=== PATIENT | male | born 1960 | race Caucasian/White ===

== ENCOUNTER 2017-05-18 12:18 | Day surgery (SDC) | payer MEDICARE, SELFPAY ==
[2017-05-18] VITALS (15 sets, daily range): BP systolic 107–134; BP diastolic 56–80; PULSE 69–93; RESP 16–20; TEMP 36.4; O2SAT 91–98; BMI 36.7
--- NOTE | 2017-05-18 12:28 | IR_ITS ---
CARDIAC CATHETERIZATION DATE OF CATHETERIZATION:05/18/2017 1:26 PM PROCEDURES: 1. Left heart catheterization 2. Left ventriculogram 3. Selective coronary angiogram INDICATION FOR TEST: 1. Left bundle-branch block 2. Angina pectoris class IV 3. Numerous risk factors for coronary artery disease 4. High pretest likelihood for coronary disease Informed consent was obtained prior to the procedure. COMPLICATIONS: None ESTIMATED BLOOD LOSS: Less than 10 ml. TECHNIQUE: One percent lidocaine used to anesthetize the right anterior aspect of the wrist. The right radial artery was accessed via the Seldinger technique. A 6 Tongan sheath was placed in the right radial artery. 2.5 mg of verapamil, 800 mcg of nitroglycerin and 5000 U Heparin were given through the arterial sheath. The trap catheter was also used to perform left heart catheterization and left ventriculography. At the end of the procedure the patient was transferred to the post-op holding area in stable condition for arterial sheath removal. ANGIOGRAPHIC RESULTS: 1. The left main artery normal 2. The left anterior descending artery is proximally normal and then has a mid vessel eccentric 30% stenosis immediately after the first diagonal artery and second septal care transitions manager. The remaining vessel is normal 3. The circumflex artery is nondominant and normal 4. The right coronary artery is dominant and has mild proximal and mid vessel 5% stenoses 5. The LINDO ventriculogram reveals preserved at 50% 6. The left ventricular end-diastolic pressure moderate to severely elevated at 35 to 40 mmHg IMPRESSION: 1. Mild nonflow limiting coronary artery disease 2. Mildly reduced to preserved left ventricular function at 50% 3. Severely elevated LVEDP consistent with cardiomyopathy and diastolic dysfunction PLAN: 1. Patient requires diuresis with Lasix and spironolactone. 2. He appears to have a cardiomyopathy most likely related to diastolic dysfunction. I would still treat patient with lenora inhibitors and carvedilol 3. LDL less than 55 4. Avoidance of tobacco products
[2017-05-18 13:01] LABS: Basophils # 0.1 K/mm3 (0-0.2); Basophils % 0.9 % (0.1-2.0); Eosinophils # 0.3 K/mm3 (0.0-0.4); Eosinophils % 4.1 % (0.1-12.0); Hematocrit 50.9 % (42.0-52.0); Lymphocytes # 2.4 K/mm3 (0.7-4.5); Lymphocytes % 34.3 K/mm3 (10-50); Mean Corpuscular HGB Conc 33.3 g/dL (31.8-35.4); Mean Corpuscular Hemoglobin 28.3 pg (27.0-31.2); Mean Corpuscular Volume 84.8 fl (80-94); Mean Platelet Volume 8.2 fl (7.4-10.4); Monocytes # 0.4 K/mm3 (0.1-1.0); Monocytes % 5.6 % (1.7-9.3); Neutrophils # 3.8 K/mm3 (1.8-7.8); Neutrophils % 55.1 % (37.0-80.0); Platelet Count 184 K/mm3 (142-424); Red Blood Count 6.01 M/mm3 (4.60-6.20); Red Cell Distribution Width 13.2 % (11.5-17.5); White Blood Count 6.9 K/mm3 (4.8-10.8)
[2017-05-18 13:02] LABS: Anion Gap 8.8 mEq/L (5-15); Blood Urea Nitrogen 5 mg/dL (7-18); Carbon Dioxide 33 mmol/L (21.0-32.0); Chloride 101 mmol/L (98-107); Creatinine Clearance Estimated 163 mL/min (0-300); Creatinine,Serum 0.89 mg/dL (0.70-1.30); Estimated Glomerular Filt Rate 88 ml/min (>60); GFR (African American) 107 ML/MIN (>60); Glucose 99 mg/dL (74-106); Potassium 3.8 mmoL/L (3.5-5.1); Sodium 139 mmol/L (136-145)
--- NOTE | 2017-05-20 10:36 | PC.NURSE ---
post procedure call made, pt states he is doing well, denies any questions/concerns at this time
== END 2017-05-18 17:12 | disposition home or self-care (01) ==
LOC: CATHLAB 12:20
PROVIDERS: Family Provider Family Medicine; PCP Family Medicine; Visit Provider Internal Medicine
DX: I44.7 Left bundle-branch block, unspecified (principal); I25.119 Atherosclerotic heart disease of native coronary artery with unspecified angina pectoris; I42.9 Cardiomyopathy, unspecified
CPT/HCPCS: 80048; 85025; 93458; 99152; C1725; C1760; C1769; J1644; Q9967

== ENCOUNTER → 2017-06-01 09:46 | Outpatient (CLI) | payer MEDICARE, SELFPAY ==
[2017-06-01 10:04] LABS: Anion Gap 10.4 mEq/L (5-15); Blood Urea Nitrogen 9 mg/dL (7-18); Carbon Dioxide 31 mmol/L (21.0-32.0); Chloride 105 mmol/L (98-107); Creatinine,Serum 0.96 mg/dL (0.70-1.30); Estimated Glomerular Filt Rate 81 ml/min (>60); GFR (African American) 98 ML/MIN (>60); Glucose 121 mg/dL (74-106); Potassium 4.4 mmoL/L (3.5-5.1); Sodium 142 mmol/L (136-145)
== END ==
PROVIDERS: PCP Family Medicine; Visit Provider Internal Medicine
DX: I25.10 Atherosclerotic heart disease of native coronary artery without angina pectoris (principal); I11.9 Hypertensive heart disease without heart failure; E78.5 Hyperlipidemia, unspecified; R00.0 Tachycardia, unspecified; I44.7 Left bundle-branch block, unspecified
CPT/HCPCS: 36415; 80048

== ENCOUNTER 2017-06-28 09:59 | Observation (INO) | payer MEDICARE, SELFPAY ==
[2017-06-28] VITALS (9 sets, daily range): BP systolic 111–128; BP diastolic 66–90; PULSE 78–110; RESP 16–22; TEMP 36.6–37.3; O2SAT 92–97; BMI 36.0; BMI 34.7
[2017-06-28 11:26] LABS: UTC Influenza A Antigen Negative (Negative); UTC Influenza B Antigen Negative (Negative); UTC Strep Screen (Rapid) Negative (Negative)
--- NOTE | 2017-06-28 11:36 | HMH.EDUTC ---
[facility] Disposition Clinical Impression: Shortness of breath, Weakness Chest pain Qualifiers: Chest pain type: unspecified Qualified Code(s): R07.9 - Chest pain, unspecified Disposition: Still a Patient Condition on Discharge: Fair Time of Disposition: 11:50 (transfer to ER bed 8) Medical Decision Making Vital Signs: 06/28/17 11:15 Temperature 97.9 F Temperature Source Temporal Artery Scan Pulse Rate [Right Radial] 105 H Respiratory Rate 22 Blood Pressure [Right Arm] 120/88 Blood Pressure Mean [Right Arm] 98 02 Sat by Pulse Oximetry 94 L Oxygen Delivery Method Nasal Cannula - Lab Data Lab results reviewed: Yes: I reviewed the patient's lab results. Lab Results 06/28/17 10:07: Influenza Type A Ag Negative, Influenza Type B Ag Negative, Strep Scn Rapid Clinic Negative Orders (Tests/Meds): ORDERS Category Date Time Status Strep Screen Confirmation Stat Micro 06/28/17 10:07 Received - Physician Consults Physician Consulted: Dr. Knox, ER Time: 11:50 Reason -: Pt condition Comment/Response: Discussed PMHx, HPI, current symptoms, exam, VS, neg flu/strep. Agrees w/ transfer to ER for full evaluation. Room 8 available. pt and agreeable to transfer. - Rodríguez Inquiry Pt receiving controlled substance: No [facility] HPI - General Stated complaint: Poss Flu Time Seen by Provider: 06/28/17 11:36 Mode of Arrival: Family Vehicle Source of Information: Patient Limitations: No Limitations Description of Symptoms (Recalled from Triage Doc. by RN): pt c/o flu like symptoms that started on . HEENT Symptoms (Recalled from RN notes): Yes (flu like) Resp Symptoms (Recalled from RN notes): Yes (flu like) Skin Symptoms (Recalled from RN notes): No MS Symptoms (Recalled from RN notes): No Functional Status (Recalled from RN notes): na - History of Present Illness Provider Complaint: c/o muscle cramps, fatigue, weakness. Started w/ flu like symptoms Wednesday, 6 days ago. Feeling feverish, aches, chills, nonprod cough. Currently in the middle of changing from Dr. Ly in [place] to Rachel Hansen APRN. Appt on . Has not been seen for symptoms. Taking cold and flu medication otc but not helping. Weakness, muscle cramping, fatigue, SOA all new over the last couple days. - Related Data Home Medications Medication Instructions Recorded Confirmed aspirin 81 mg tablet,delayed 81 mg PO ONCE 05/18/17 05/18/17 release bupropion HCl SR 150 mg 150 mg PO BID 05/18/17 05/18/17 tablet,sustained-release diphenhydramine 25 mg capsule 25 mg PO ONCE cap 05/18/17 05/18/17 melatonin 5 mg tablet 5 mg PO HS PRN 05/18/17 05/18/17 montelukast 10 mg tablet 10 mg PO QPM 05/18/17 05/18/17 naproxen 500 mg tablet 500 mg PO QD-BID PRN 05/18/17 05/18/17 tolterodine ER 4 mg 4 mg PO ONCE 05/18/17 05/18/17 capsule,extended release 24 hr trazodone 150 mg tablet 150 mg PO QHS tab 05/18/17 05/18/17 Previous Rx's Medication Instructions Recorded amlodipine 5 mg tablet 5 mg PO DAILY #90 tab 06/22/17 bisoprolol fumarate 5 mg tablet 5 mg PO QDAY #30 tab 06/22/17 furosemide 80 mg tablet 80 mg PO QDAY #30 tab 06/22/17 lovastatin 20 mg tablet 20 mg PO DAILY #90 tab 06/22/17 ranolazine ER 500 mg 500 mg PO BID #60 tab 06/22/17 tablet,extended release,12 hr spironolactone 100 mg tablet 100 mg PO QDAY #30 tab 06/22/17 Allergies Allergy/AdvReac Type Severity Reaction Status Date / Time No Known Allergies Allergy Verified 06/28/17 10:17 - Worker's Comp Is this a Worker's Comp case?: No [facility] History I have reviewed the patient's past medical history: Yes Medical History: Reports:: Congestive Heart Failure (pt describes as too much water ), Coronary Artery Disease, Hyperlipidemia, Hypertension Denies:: Chronic Obstructive Pulmonary Disease (COPD), Myocardial Infarction Laterality Cases: Right: Arthroscopy Knee - Social History Smoking Status: Never smoker Tobacco Type: cigarettes
--- NOTE | 2017-06-28 11:50 | ED_ITS ---
[facility] [place] Disposition Clinical Impression: Shortness of breath, Weakness Chest pain Qualifiers: Chest pain type: unspecified Qualified Code(s): R07.9 - Chest pain, unspecified Disposition: Still a Patient Condition on Discharge: Fair Time of Disposition: 11:50 (transfer to ER bed 8) Medical Decision Making Vital Signs: 06/28/17 11:15 Temperature 97.9 F Temperature Source Temporal Artery Scan Pulse Rate [Right Radial] 105 H Respiratory Rate 22 Blood Pressure [Right Arm] 120/88 Blood Pressure Mean [Right Arm] 98 02 Sat by Pulse Oximetry 94 L Oxygen Delivery Method Nasal Cannula - Lab Data Lab results reviewed: Yes: I reviewed the patient's lab results. Lab Results 06/28/17 10:07: Influenza Type A Ag Negative, Influenza Type B Ag Negative, Strep Scn Rapid Clinic Negative Orders (Tests/Meds): ORDERS Category Date Time Status Strep Screen Confirmation Stat Micro 06/28/17 10:07 Received - Physician Consults Physician Consulted: Dr. Knox, ER Time: 11:50 Reason -: Pt condition Comment/Response: Discussed PMHx, HPI, current symptoms, exam, VS, neg flu/ strep. Agrees w/ transfer to ER for full evaluation. Room 8 available. pt and agreeable to transfer. - Rodríguez Inquiry Pt receiving controlled substance: No [facility] HPI - General Stated complaint: Poss Flu Time Seen by Provider: 06/28/17 11:36 Mode of Arrival: Family Vehicle Source of Information: Patient Limitations: No Limitations Description of Symptoms (Recalled from Triage Doc. by RN): pt c/o flu like symptoms that started on . HEENT Symptoms (Recalled from RN notes): Yes (flu like) Resp Symptoms (Recalled from RN notes): Yes (flu like) Skin Symptoms (Recalled from RN notes): No MS Symptoms (Recalled from RN notes): No Functional Status (Recalled from RN notes): na - History of Present Illness Provider Complaint: c/o muscle cramps, fatigue, weakness. Started w/ flu like symptoms Wednesday, 6 days ago. Feeling feverish, aches, chills, nonprod cough. Currently in the middle of changing from Dr. Ly in [place] to Rachel Hansen APRN. Appt on . Has not been seen for symptoms. Taking cold and flu medication otc but not helping. Weakness, muscle cramping, fatigue, SOA all new over the last couple days. - Related Data Home Medications Medication Instructions Recorded Confirmed aspirin 81 mg tablet,delayed 81 mg PO ONCE 05/18/17 05/18/17 release bupropion HCl SR 150 mg 150 mg PO BID 05/18/17 05/18/17 tablet,sustained-release diphenhydramine 25 mg capsule 25 mg PO ONCE cap 05/18/17 05/18/17 melatonin 5 mg tablet 5 mg PO HS PRN 05/18/17 05/18/17 montelukast 10 mg tablet 10 mg PO QPM 05/18/17 05/18/17 naproxen 500 mg tablet 500 mg PO QD-BID PRN 05/18/17 05/18/17 tolterodine ER 4 mg 4 mg PO ONCE 05/18/17 05/18/17 capsule,extended release 24 hr trazodone 150 mg tablet 150 mg PO QHS tab 05/18/17 05/18/17 Previous Rx's Medication Instructions Recorded amlodipine 5 mg tablet 5 mg PO DAILY #90 tab 06/22/17 bisoprolol fumarate 5 mg tablet 5 mg PO QDAY #30 tab 06/22/17 furosemide 80 mg tablet 80 mg PO QDAY #30 tab 06/22/17 lovastatin 20 mg tablet 20 mg PO DAILY #90 tab 06/22/17 ranolazine ER 500 mg 500 mg PO BID #60 tab 06/22/17 tablet,extende
--- NOTE | 2017-06-28 11:56 | XR_ITS ---
XR chest 2V HISTORY: ITS.REASON: dyspnea ORDERING PHYSICIAN: Rachel Reynoso PATIENT AGE: 56 years COMPARISON: 11/20/2015 FINDINGS: The cardiomediastinal silhouette and pulmonary vascularity are within normal limits. There are minimal atelectatic changes in the lingula. No lobar consolidation. No effusions. No acute bony anomalies. IMPRESSION: Mild atelectasis within the lingula
[2017-06-28 12:53] LABS: Basophils % 0.7 % (0.1-2.0); Eosinophils # 0.2 K/mm3 (0.0-0.4); Eosinophils % 3.7 % (0.1-12.0); Hematocrit 47.5 % (42.0-52.0); Hemoglobin 16.1 g/dL (14.1-18.0); Lymphocytes # 1.5 K/mm3 (0.7-4.5); Lymphocytes % 37.8 K/mm3 (10-50); Mean Corpuscular HGB Conc 33.9 g/dL (31.8-35.4); Mean Corpuscular Volume 82.8 fl (80-94); Mean Platelet Volume 8.1 fl (7.4-10.4); Monocytes # 0.4 K/mm3 (0.1-1.0); Monocytes % 8.9 % (1.7-9.3); Platelet Count 131 K/mm3 (142-424); Red Blood Count 5.73 M/mm3 (4.60-6.20); Red Cell Distribution Width 12.8 % (11.5-17.5); White Blood Count 4.1 K/mm3 (4.8-10.8)
[2017-06-28 13:05] LABS: Activated Partial Thrombo Time 30.1 seconds (23.6-34.0); INR 1.03 (0.9-1.1); Prothrombin Time 11.1 seconds (9.4-11.8)
[2017-06-28 13:13] LABS: D-Dimer < 100 (0-400)
[2017-06-28 13:47] LABS: Troponin I < 0.02 ng/ml (0.00-0.06)
[2017-06-28 13:53] LABS: Alanine Aminotransferase 68 U/L (12-78); Albumin Level 4.1 gm/dL (3.4-5.0); Albumin/Globulin Ratio 1.5 (1.1-1.8); Anion Gap 12.9 mEq/L (5-15); Aspartate Amino Transferase 46 U/L (15-37); Bilirubin,Total 0.9 mg/dL (0.2-1.0); Blood Urea Nitrogen 9 mg/dL (7-18); Calcium 8.7 mg/dL (8.5-10.1); Carbon Dioxide 32 mmol/L (21.0-32.0); Chloride 100 mmol/L (98-107); Creatine Kinase MB < 0.5 mg/ml (0.0-3.6); Creatinine Clearance Estimated 122 mL/min (0-300); Creatinine,Serum 1.17 mg/dL (0.70-1.30); Estimated Glomerular Filt Rate 64 ml/min (>60); GFR (African American) 78 ML/MIN (>60); Globulin 2.7 gm/dl (1.3-3.2); Glucose 118 mg/dL (74-106); Potassium 3.9 mmoL/L (3.5-5.1); Sodium 141 mmol/L (136-145); Total Protein,Serum 6.8 gm/dL (6.4-8.2)
[2017-06-28 13:54] LABS: Alkaline Phosphatase 75 U/L (46-116)
--- NOTE | 2017-06-28 16:45 | PC.NURSE ---
CALLED HOUSE FOR A BED FOR PT
--- NOTE | 2017-06-28 16:55 | PC.NURSE ---
Dr. Vilchis called stating he had spoken with Dr. Singh who stated to admit pt to his service. Pt states he has an appt scheduled as a new pt with ARINA Menchaca.
--- NOTE | 2017-06-28 17:05 | HMH.EDSOB ---
ED Disposition Clinical Impression: Shortness of breath, Weakness Chest pain Qualifiers: Chest pain type: unspecified Qualified Code(s): R07.9 - Chest pain, unspecified Reactive airway disease Qualifiers: Asthma severity: mild Asthma persistence: persistent Asthma complication type: with acute exacerbation Qualified Code(s): J45.31 - Mild persistent asthma with (acute) exacerbation Disposition: Still a Patient Condition on Discharge: Good Time of Disposition: 16:35 - Critical Care Critical Care Time: No Attestation: On 06/28/17, the high probability of a clinically significant, sudden or life threatening deterioration of the following system(s) required my full and direct attention, intervention and personal management. The time I documented below is in addition to time spent performing reported procedures but includes the following listed in this critical care notation. Medical Decision Making - Medical Records Medical records reviewed: Yes: I reviewed the patient's medical records. Vital Signs: 06/28/17 11:15 06/28/17 11:52 06/28/17 13:11 Temperature 97.9 F 98.0 F 98.0 F Temperature Source Temporal Artery Scan Oral Oral Pulse Rate Pulse Rate [Right Radial] 105 H 78 92 H Respiratory Rate 22 22 16 Blood Pressure Blood Pressure [Right Arm] 120/88 128/90 118/66 Blood Pressure Mean [Right Arm] 98 102 83 Blood Pressure Source [Right Arm] Automatic Cuff Automatic Cuff Blood Pressure Position [Right Arm] Sitting Sitting 02 Sat by Pulse Oximetry 94 L 97 95 Oxygen Delivery Method Nasal Cannula Room Air Room Air 06/28/17 15:30 06/28/17 18:09 Temperature 98.0 F 98.0 F Temperature Source Oral Pulse Rate 88 Pulse Rate [Right Radial] 88 Respiratory Rate 22 22 Blood Pressure 127/67 Blood Pressure [Right Arm] 127/67 Blood Pressure Mean [Right Arm] 87 Blood Pressure Source [Right Arm] Automatic Cuff Blood Pressure Position [Right Arm] Sitting 02 Sat by Pulse Oximetry 92 L Oxygen Delivery Method Room Air Room Air - Lab Data Lab results reviewed: Yes: I reviewed the patient's lab results. Lab Results 06/28/17 10:07: Influenza Type A Ag Negative, Influenza Type B Ag Negative, Strep Scn Rapid Clinic Negative 06/28/17 12:35: WBC 4.1 L, RBC 5.73, Hgb 16.1, Hct 47.5, MCV 82.8, MCH 28.0, MCHC 33.9, RDW 12.8, Plt Count 131 L, MPV 8.1, Neut % (Auto) 49.0, Lymph % (Auto) 37.8, [place] % (Auto) 8.9, Eos % (Auto) 3.7, Baso % (Auto) 0.7, Neut # (Auto) 2.0, Lymph # (Auto) 1.5, [place] # (Auto) 0.4, Eos # (Auto) 0.2, Baso # (Auto) 0.0 06/28/17 12:35: PT 11.1, INR 1.03, APTT 30.1, D-Dimer < 100 06/28/17 12:35: Sodium 141, Potassium 3.9, Chloride 100, Carbon Dioxide 32, Anion Gap 12.9, BUN 9, Creatinine 1.17, Estimated Creat Clear 122, Estimated GFR 64, Est GFR ( Amer) 78, Glucose 118 H, Calcium 8.7, Total Bilirubin 0.9, AST 46 H, ALT 68, Alkaline Phosphatase 75, CK-MB (CK-2) < 0.5, Troponin I < 0.02, Total Protein 6.8, Albumin 4.1, Globulin 2.7, Albumin/Globulin Ratio 1.5 06/28/17 12:35: B-Natriuretic Peptide 18 06/28/17 18:10: Total Creatine Kinase 117, CK-MB (CK-2) < 0.5, CK-MB (CK-2) Rel Index 0.4, Troponin I < 0.02 Result diagrams: 06/28/17 12:35 06/28/17 12:35 Orders (Tests/Meds): ED MEDICATIONS Discontinued Medications Generic Name Dose Route Start Last Admin Trade Name Freq PRN Reason Stop Dose Admin Albuterol/Ipratropium 3 ml 06/28/17 17:34 Duoneb 3ml Neb IH 07/28/17 17:33 Q6HP PRN Shortness Of Breath Aspirin 324 mg 06/28/17 11:56 06/28/17 12:13 Aspirin 81mg Chewable Tablet PO 06/28/17 11:57 324 mg ONCE ONE Administration Ceftriaxone Sodium 1 gm/ 50 mls @ 100 mls/hr 06/28/17 13:30 06/28/17 13:27 Sodium Chloride IV 07/12/17 13:29 100 mls/hr Q24H ERROL Administration Ceftriaxone Sodium 1 gm/ 50 mls @ 100 mls/hr 06/29/17 13:00 06/29/17 13:10 Sodium Chloride IV 07/12/17 12:59 Not Given Q24H ERROL Levalbuterol HCl 1.25 mg 06/29/17 1
--- NOTE | 2017-06-28 17:07 | PC.NURSE ---
[address] MARTÍNEZ OFFICE. BEEN WAITING RETURN CALL FROM OFFICE. 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
--- NOTE | 2017-06-28 17:37 | PC.NURSE ---
REPORT CALLED TO LAURA GEORGES RN
[2017-06-28 18:41] LABS: Creatine Kinase 117 U/L (39-308); Troponin I < 0.02 ng/ml (0.00-0.06)
[2017-06-28 18:45] LABS: CKMB Relative Index 0.4 U/L (0-4.0); Creatine Kinase MB < 0.5 mg/ml (0.0-3.6)
--- NOTE | 2017-06-28 19:02 | PC.NURSE ---
Report given to Allegra Maharaj RN
[2017-06-29] VITALS (8 sets, daily range): BP systolic 116–157; BP diastolic 73–91; PULSE 79–140; RESP 18–22; TEMP 36.6–37.1; O2SAT 90–95
[2017-06-29 00:05] LABS: Creatine Kinase 123 U/L (39-308); Troponin I < 0.02 ng/ml (0.00-0.06)
[2017-06-29 00:10] LABS: CKMB Relative Index 0.4 U/L (0-4.0); Creatine Kinase MB < 0.5 mg/ml (0.0-3.6)
--- NOTE | 2017-06-29 05:30 | PC.NURSE ---
NO COMPLAINTS STATED. NSR/SINUS TACH NOTED PER HOG FEEDER. RN NOTIFIED OF HR IN 140'S, RN RESPONDED TO NOTIFICATION AND ASSESSED PT, PT WAS IN ROOM WALKING IN ROOM, PT STATED I JUST WENT TO THE BATHROOM AND I HAVE BEEN TRYING TO COUGH UP THIS PHLEGM. DENIED PAIN/SOA. ONCE RESTING, HR NOTED 80'S-90'S, NSR. TOLERATED RA WELL. VSS. WILL CONTINUE TO MONITOR.
--- NOTE | 2017-06-29 06:09 | PC.NURSE ---
ANMOL Zuniga, notified, of Dr Beard consult
--- NOTE | 2017-06-29 06:17 | PC.NURSE ---
PT REPORTS PRODUCTIVE COUGH, STATES ONE TIME I COUGHED IT UP, IT WAS YELLOW AND THICK THE OTHER TIME I COUGHED SOME STUFF UP IT WAS YELLOW AND THIN.
--- NOTE | 2017-06-29 07:35 | PC.NURSE ---
REPORT GIVEN TO Marv RAND W/C
--- NOTE | 2017-06-29 07:58 | P.CONPHA_ITS ---
[facility] Pharmacy VTE Monitoring - Patient Demographics Admission date: 06/28/17 Report Date: 06/29/17 Time: 07:57 Allergies/Adverse Reactions: Patient Allergies No Known Allergies Allergy (Verified 06/28/17 10:17) Height: 1.85 m Weight: 119.493 kg Patient Problems: Current Active Problems Chest pain (Acute) Shortness of breath (Acute) Weakness (Acute) Reactive airway disease (Acute) - VTE Risk Labs: VTE Related Lab Results Hgb 16.1 g/dL (14.1-18.0) 06/28/17 12:35 Hct 47.5 % (42.0-52.0) 06/28/17 12:35 Plt Count 131 K/mm3 (142-424) L 06/28/17 12:35 PT 11.1 seconds (9.4-11.8) 06/28/17 12:35 INR 1.03 (0.9-1.1) 06/28/17 12:35 APTT 30.1 seconds (23.6-34.0) 06/28/17 12:35 BUN 9 mg/dL (7-18) 06/28/17 12:35 Creatinine 1.17 mg/dL (0.70-1.30) 06/28/17 12:35 Estimated Creat Clear 122 mL/min (0-300) 06/28/17 12:35 Was VTE Risk Assessment Performed: Yes VTE Score: 2 VTE Risk Level: Very Low Risk Clinical Trial Participant: No - Prophylaxis Types of VTE Prophylaxis: TEDS Knee High
--- NOTE | 2017-06-29 08:46 | HMH.CNCARD ---
History of Present Illness Consult date: 06/29/17 Requesting physician: Nando Singh Consult reason: chest pain Chief complaint: chest pain Additional Medical History:: 1. Mild coronary artery disease by cardiac catheterization 05/2017 with preserved ejection fraction. A. Endothelial dysfunction with diastolic heart disease. 2. Hypertension 3. Hyperlipidemia 4. Left bundle branch block, rate related History of present illness: 56-year-old white male admitted for chest pain and patient relates recurrent episodes of left-sided chest discomfort that occur at rest. Brief in duration and seemed to be associated with coughing or movement. Patient has a recent cardiac catheterization showing only mild coronary artery disease. There has been some treatment for endothelial dysfunction with Ranexa with some improvement in symptoms but not complete resolution. Enzymes have returned normal overnight. Telemetry shows intermittent left bundle branch block which seems to be rate related. Radiology consulted for evaluation recommendations. [facility] History Medical History: Reports:: Congestive Heart Failure (pt describes as too much water ), Coronary Artery Disease, Hyperlipidemia, Hypertension Denies:: Chronic Obstructive Pulmonary Disease (COPD), Diabetes Mellitus Type 1, Diabetes Mellitus Type 2, Myocardial Infarction Laterality Cases: Right: Arthroscopy Knee Other Surgeries: Yes: Other Amputation: No - *Social History Educational Level: Completed High School Smoking Status: Never smoker Tobacco Type: cigarettes Alcohol Intake: never Alcohol Intake Frequency:: other Occupational Status: disabled Housing: house Household Members: spouse - Psychiatric History Expresses thoughts of harming self/others: None Suicide Plan Description: No Plan *Family Hx:: Unable to obtain, Coronary Artery Disease, Heart Attack Meds Home Medications Medication Instructions Recorded Confirmed Type aspirin 81 mg tablet,delayed 81 mg PO ONCE 05/18/17 06/28/17 History release bupropion HCl SR 150 mg 150 mg PO BID 05/18/17 06/28/17 History tablet,sustained-release diphenhydramine 25 mg capsule 25 mg PO ONCE cap 05/18/17 06/28/17 History melatonin 5 mg tablet 5 mg PO HS PRN 05/18/17 06/28/17 History montelukast 10 mg tablet 10 mg PO QPM 05/18/17 06/28/17 History naproxen 500 mg tablet 500 mg PO QD-BID PRN 05/18/17 06/28/17 History tolterodine ER 4 mg 4 mg PO ONCE 05/18/17 06/28/17 History capsule,extended release 24 hr trazodone 150 mg tablet 150 mg PO QHS tab 05/18/17 06/28/17 History Bisoprolol Fumarate [Zebeta 5mg 5 mg PO QDAY 06/28/17 06/28/17 History tablet] Furosemide [Furosemide 80mg Tab] 80 mg PO QDAY 06/28/17 06/28/17 History Ranolazine [Ranexa 500mg ER tablet] 500 mg PO BID 06/28/17 06/28/17 History Spironolactone [Aldactone 100mg 100 mg PO QDAY 06/28/17 06/28/17 History Tab] Allergies Allergy/AdvReac Type Severity Reaction Status Date / Time No Known Allergies Allergy Verified 06/28/17 10:17 Review of Systems - *Cardiovascular Reports chest pain - *Respiratory Reports shortness of breath with activity - *Gastrointestinal Denies abdominal pain - *Musculoskeletal Denies joint pain - *Neurologic Reports weakness, Denies dizziness, Denies headache(s) Exam Vital signs and Labs for Last 24 Hours: Temp Pulse Resp BP Pulse Ox 97.9 F 79 18 130/76 90 L 06/29/17 08:00 06/29/17 08:00 06/29/17 08:00 06/29/17 08:00 06/29/17 08:00 Laboratory Results - last 24 hr 06/28/17 23:35: Total Creatine Kinase 123, CK-MB (CK-2) < 0.5, CK-MB (CK-2) Rel Index 0.4, Troponin I < 0.02 I & O for Last 24 hours: Intake & Output 06/26/17 06/27/17 06/28/17 06/29/17 11:59 11:59 11:59 11:59 Intake Total 0 / 0 Balance 0 / 0 Weight 263 lb 7 oz - *Routine Respiratory Exam Present: wheezes - *Routine Cardiovascular Exam Present: RRR. Absent: murmur, gallop - *Routine Extr
[2017-06-29 09:22] LABS: Adenovirus,PCR Not Detected (NotDetected); Bordetella Pertussis Not Detected (NotDetected); Chlamydophila Pneumoniae, PCR Not Detected (NotDetected); Coronavirus 229E Not Detected (NotDetected); Coronavirus NL63 Not Detected (NotDetected); Coronavirus OC43 Not Detected (NotDetected); Coronovirus HKU1,PCR Not Detected (NotDetected); Human Metapneumovirus Not Detected (NotDetected); Influenza A, PCR Not Detected (NotDetected); Influenza AH1, 2009 Not Detected (NotDetected); Influenza AH1, PCR Not Detected (NotDetected); Influenza AH3,PCR Not Detected (NotDetected); Influenza B, PCR Not Detected (NotDetected); Mycoplasma Pneumoniae, PCR Not Detected (NotDected); Parainfluenza 1, PCR Not Detected (NotDetected); Parainfluenza 2, PCR Not Detected (NotDetected); Parainfluenza 3, PCR Not Detected (NotDetected); Parainfluenza 4, PCR Not Detected (NotDetected); Respiratory Syncytial Virus Not Detected (NotDetected); Rhinovirus/Enterovirus Not Detected (NotDetected)
--- NOTE | 2017-06-29 13:13 | HMH.HPDC ---
General - General Admission date: 06/28/17 Discharge date: 06/29/17 *Admission Date: 06/28/17 *Chief complaint: chest pain, shortness of breath *History of present illness: 56 year old male presented to the ED with flu-like symptoms x 6 days. Reports anterior chest discomfort and shortness of breath. States chest pain occurred at rest and worsened with deep breathing. States he has felt feverish over the last few days. He has recently been seen by pulmonology for his COPD and Cardiology for chest pain. He had a LHC this year that showed endothelial dysfunction; however no significant CAD. There was concern for a new LBBB block in the ED so patient was admitted for observation and further evaluation. [facility] History I have reviewed the patient's past medical history: Yes Medical History: Reports:: Congestive Heart Failure (pt describes as too much water ), Coronary Artery Disease, Hyperlipidemia, Hypertension Denies:: Chronic Obstructive Pulmonary Disease (COPD), Diabetes Mellitus Type 1, Diabetes Mellitus Type 2, Myocardial Infarction Laterality Cases: Right: Arthroscopy Knee Other Surgeries: Yes: Other Amputation: No - *Social History Educational Level: Completed High School Smoking Status: Never smoker Tobacco Type: cigarettes Alcohol Intake: never Alcohol Intake Frequency:: other Occupational Status: disabled Housing: house Household Members: spouse - Psychiatric History Expresses thoughts of harming self/others: None Suicide Plan Description: No Plan *Family Hx:: Unable to obtain, Coronary Artery Disease, Heart Attack Review of Systems - Review of Systems Review of systems:: pertinent systems reviewed and negative unless documented below - Constitutional Reports body ache(s), Reports chills, Reports fever(s) - ENT Reports nasal congestion, Reports nasal discharge, Reports sinus pressure, Reports sore throat - *Cardiovascular Reports chest pain - *Respiratory Reports chest congestion, Reports cough, Reports shortness of breath - *Neurologic Reports weakness, Denies dizziness, Denies headache(s) Exam Vital signs and Labs for Last 24 Hours: Temp Pulse Resp BP Pulse Ox 97.9 F 79 18 130/76 90 L 06/29/17 08:00 06/29/17 09:37 06/29/17 09:37 06/29/17 08:00 06/29/17 09:37 Laboratory Results - last 24 hr 06/28/17 23:35: Total Creatine Kinase 123, CK-MB (CK-2) < 0.5, CK-MB (CK-2) Rel Index 0.4, Troponin I < 0.02 06/29/17 09:05: Chlamy pneumoniae PCR Not detected, Adenovirus (PCR) Not detected, B.parapertussis DNA PCR Not detected, Coronavirus OC43 (PCR) Not detected, Coronavirus HKU1 (PCR) Not detected, Coronavirus 229E (PCR) Not detected, Coronavirus NL63 (PCR) Not detected, Human Metapneumovir PCR Not detected, Influenza A (H1) PCR Not detected, Influ A (H1N1/09) PCR Not detected, Influenza A (H3) PCR Not detected, Influenza Type A (PCR) Not detected, Influenza Type B (PCR) Not detected, M. pneumoniae (PCR) Not detected, Parainfluenza 1 (PCR) Not detected, Parainfluenza 2 (PCR) Not detected, Parainfluenza 3 (PCR) Not detected, Parainfluenza 4 (PCR) Not detected, RSV (PCR) Not detected, Entero/Rhino (PCR) Not detected I & O for Last 24 hours: Intake & Output 06/27/17 06/28/17 06/29/17 06/30/17 11:59 11:59 11:59 11:59 Intake Total 0 / 0 Balance 0 / 0 Weight 263 lb 7 oz Narrative: ALert and oriented x3. Rate and rhythm regular. Pulses 2+ bilaterally. No LE edema. Skin pink, warm and dry. LS with scattered wheezes throughout. Abdomen soft and nontender. No JVD. No LAD. No acute neuro deficits Hospital Course Hospital Course: Patient was admitted to acute care. Telemetry was monitored which was uneventful. Serial cardiac enzymes were negative. He was given IV antibiotics and nebulizer treatments for exacerbation of COPD. CXR was obtained and negative for pneumonia. Upper respiratory PCR was obtained and found to be negative. Cardiology was consulted and do not feel his p
--- NOTE | 2017-06-29 13:18 | P.HPDS_ITS ---
General - General Admission date: 06/28/17 Discharge date: 06/29/17 *Admission Date: 06/28/17 *Chief complaint: chest pain, shortness of breath *History of present illness: 56 year old male presented to the ED with flu-like symptoms x 6 days. Reports anterior chest discomfort and shortness of breath. States chest pain occurred at rest and worsened with deep breathing. States he has felt feverish over the last few days. He has recently been seen by pulmonology for his COPD and Cardiology for chest pain. He had a LHC this year that showed endothelial dysfunction; however no significant CAD. There was concern for a new LBBB block in the ED so patient was admitted for observation and further evaluation. [facility] History I have reviewed the patient's past medical history: Yes Medical History: Reports:: Congestive Heart Failure (pt describes as too much water ), Coronary Artery Disease, Hyperlipidemia, Hypertension Denies:: Chronic Obstructive Pulmonary Disease (COPD), Diabetes Mellitus Type 1, Diabetes Mellitus Type 2, Myocardial Infarction Laterality Cases: Right: Arthroscopy Knee Other Surgeries: Yes: Other Amputation: No - *Social History Educational Level: Completed High School Smoking Status: Never smoker Tobacco Type: cigarettes Alcohol Intake: never Alcohol Intake Frequency:: other Occupational Status: disabled Housing: house Household Members: spouse - Psychiatric History Expresses thoughts of harming self/others: None Suicide Plan Description: No Plan *Family Hx:: Unable to obtain, Coronary Artery Disease, Heart Attack Review of Systems - Review of Systems Review of systems:: pertinent systems reviewed and negative unless documented below - Constitutional Reports body ache(s), Reports chills, Reports fever(s) - ENT Reports nasal congestion, Reports nasal discharge, Reports sinus pressure, Reports sore throat - *Cardiovascular Reports chest pain - *Respiratory Reports chest congestion, Reports cough, Reports shortness of breath - *Neurologic Reports weakness, Denies dizziness, Denies headache(s) Exam Vital signs and Labs for Last 24 Hours: Temp Pulse Resp BP Pulse Ox 97.9 F 79 18 130/76 90 L 06/29/17 08:00 06/29/17 09:37 06/29/17 09:37 06/29/17 08:00 06/29/17 09:37 Laboratory Results - last 24 hr 06/28/17 23:35: Total Creatine Kinase 123, CK-MB (CK-2) < 0.5, CK-MB (CK-2) Rel Index 0.4, Troponin I < 0.02 06/29/17 09:05: Chlamy pneumoniae PCR Not detected, Adenovirus (PCR) Not detected, B.parapertussis DNA PCR Not detected, Coronavirus OC43 (PCR) Not detected, Coronavirus HKU1 (PCR) Not detected, Coronavirus 229E (PCR) Not detected, Coronavirus NL63 (PCR) Not detected, Human Metapneumovir PCR Not detected, Influenza A (H1) PCR Not detected, Influ A (H1N1/) PCR Not detected , Influenza A (H3) PCR Not detected, Influenza Type A (PCR) Not detected, Influenza Type B (PCR) Not detected, M. pneumoniae (PCR) Not detected, Parainfluenza 1 (PCR) Not detected, Parainfluenza 2 (PCR) Not detected, Parainfluenza 3 (PCR) Not detected, Parainfluenza 4 (PCR) Not detected, RSV (PCR ) Not detected, Entero/Rhino (PCR) Not detected I & O for Last 24 hours: Intake & Output 06/27/17 06/28/17 06/29/17 06/30/17 11:59 11:59 11:59 11:59 Intake Total 0 / 0 Balance 0 / 0 Weight 263 lb 7 oz Narrative: ALert and oriented x3. Rate and rhythm regular. Pulses 2+ bilaterally. No LE edema. Skin pink, warm and dry. LS with scattered wheezes thro
--- NOTE | 2017-07-15 09:48 | P.CONS_ITS ---
History of Present Illness Consult date: 06/29/17 Requesting physician: Nando Singh Consult reason: chest pain Chief complaint: chest pain Additional Medical History:: 1. Mild coronary artery disease by cardiac catheterization 05/2017 with preserved ejection fraction. A. Endothelial dysfunction with diastolic heart disease. 2. Hypertension 3. Hyperlipidemia 4. Left bundle branch block, rate related History of present illness: 56-year-old white male admitted for chest pain and patient relates recurrent episodes of left-sided chest discomfort that occur at rest. Brief in duration and seemed to be associated with coughing or movement. Patient has a recent cardiac catheterization showing only mild coronary artery disease. There has been some treatment for endothelial dysfunction with Ranexa with some improvement in symptoms but not complete resolution. Enzymes have returned normal overnight. Telemetry shows intermittent left bundle branch block which seems to be rate related. Radiology consulted for evaluation recommendations. [facility] History Medical History: Reports:: Congestive Heart Failure (pt describes as too much water ), Coronary Artery Disease, Hyperlipidemia, Hypertension Denies:: Chronic Obstructive Pulmonary Disease (COPD), Diabetes Mellitus Type 1, Diabetes Mellitus Type 2, Myocardial Infarction Laterality Cases: Right: Arthroscopy Knee Other Surgeries: Yes: Other Amputation: No - *Social History Educational Level: Completed High School Smoking Status: Never smoker Tobacco Type: cigarettes Alcohol Intake: never Alcohol Intake Frequency:: other Occupational Status: disabled Housing: house Household Members: spouse - Psychiatric History Expresses thoughts of harming self/others: None Suicide Plan Description: No Plan *Family Hx:: Unable to obtain, Coronary Artery Disease, Heart Attack Meds Home Medications Medication Instructions Recorded Confirmed Type aspirin 81 mg tablet,delayed 81 mg PO ONCE 05/18/17 06/28/17 History release bupropion HCl SR 150 mg 150 mg PO BID 05/18/17 06/28/17 History tablet,sustained-release diphenhydramine 25 mg capsule 25 mg PO ONCE cap 05/18/17 06/28/17 History melatonin 5 mg tablet 5 mg PO HS PRN 05/18/17 06/28/17 History montelukast 10 mg tablet 10 mg PO QPM 05/18/17 06/28/17 History naproxen 500 mg tablet 500 mg PO QD-BID PRN 05/18/17 06/28/17 History tolterodine ER 4 mg 4 mg PO ONCE 05/18/17 06/28/17 History capsule,extended release 24 hr trazodone 150 mg tablet 150 mg PO QHS tab 05/18/17 06/28/17 History Bisoprolol Fumarate [Zebeta 5mg 5 mg PO QDAY 06/28/17 06/28/17 History tablet] Furosemide [Furosemide 80mg Tab] 80 mg PO QDAY 06/28/17 06/28/17 History Ranolazine [Ranexa 500mg ER tablet] 500 mg PO BID 06/28/17 06/28/17 History Spironolactone [Aldactone 100mg 100 mg PO QDAY 06/28/17 06/28/17 History Tab] Allergies Allergy/AdvReac Type Severity Reaction Status Date / Time No Known Allergies Allergy Verified 06/28/17 10:17 Review of Systems - *Cardiovascular Reports chest pain - *Respiratory Reports shortness of breath with activity - *Gastrointestinal Denies abdominal pain - *Musculoskeletal Denies joint pain - *Neurologic Reports weakness, Denies dizziness, Denies headache(s) Exam Vital signs and Labs for Last 24 Hours: Temp Pulse Resp BP Pulse Ox 9
== END 2017-06-29 14:25 | disposition home or self-care (01) ==
LOC: UTC 10:04 → ER 11:52 → 2ND 18:29
PROVIDERS: Emergency Medicine; Nurse Practitioner Family; Admitting Provider Family Medicine; Emergency Provider Nurse Practitioner Family; Family Provider Family Medicine; PCP Family Medicine; Visit Provider Internal Medicine Adolescent Medicine
DX: J44.0 Chronic obstructive pulmonary disease with (acute) lower respiratory infection (principal); I50.30 Unspecified diastolic (congestive) heart failure; I11.0 Hypertensive heart disease with heart failure; I44.7 Left bundle-branch block, unspecified; I25.119 Atherosclerotic heart disease of native coronary artery with unspecified angina pectoris; I99.8 Other disorder of circulatory system; Z87.891 Personal history of nicotine dependence; R50.9 Fever, unspecified; R53.83 Other fatigue; R06.9 Unspecified abnormalities of breathing
CPT/HCPCS: 36415; 71046; 80053; 82550; 82553; 83880; 84484; 85025; 85378; 85610; 85730; 87486; 87581; 87633; 87798; 87804; 87880; 93005; 93041; 94640; 96374; 99285; G0378

== ENCOUNTER → 2017-07-01 15:21 | Outpatient (CLI) | payer MEDICARE, SELFPAY ==
--- NOTE | 2017-07-01 15:25 | XR_ITS ---
XR chest 2V HISTORY: Cough ITS.REASON: BRONCHITIS,DYSPNEA ORDERING PHYSICIAN: Christina Hansen PATIENT AGE: 56 years COMPARISON: 06/28/2017 FINDINGS: The cardiomediastinal silhouette and pulmonary vascularity are within normal limits. There are atelectatic changes once again noted in the left lower lobe. No lobar consolidation or collapse or pleural effusion evident.. No acute bony abnormalities. IMPRESSION: Continued mild left basilar atelectasis otherwise negative
== END ==
PROVIDERS: PCP Nurse Practitioner Family; Visit Provider Nurse Practitioner Family
DX: J20.9 Acute bronchitis, unspecified (principal); R06.00 Dyspnea, unspecified
CPT/HCPCS: 71046; 87070; 87077; 87205

== ENCOUNTER → 2017-07-13 10:22 | Outpatient (CLI) | payer MEDICARE, SELFPAY ==
[2017-07-13 10:44] LABS: Basophils % 0.5 % (0.1-2.0); Eosinophils # 0.1 K/mm3 (0.0-0.4); Eosinophils % 1.5 % (0.1-12.0); Hematocrit 49.3 % (42.0-52.0); Hemoglobin 16.4 g/dL (14.1-18.0); Lymphocytes # 1.7 K/mm3 (0.7-4.5); Lymphocytes % 30.5 K/mm3 (10-50); Mean Corpuscular HGB Conc 33.2 g/dL (31.8-35.4); Mean Corpuscular Volume 84.2 fl (80-94); Mean Platelet Volume 7.9 fl (7.4-10.4); Monocytes # 0.3 K/mm3 (0.1-1.0); Monocytes % 5.4 % (1.7-9.3); Neutrophils # 3.5 K/mm3 (1.8-7.8); Platelet Count 167 K/mm3 (142-424); Red Blood Count 5.85 M/mm3 (4.60-6.20); Red Cell Distribution Width 12.8 % (11.5-17.5); White Blood Count 5.7 K/mm3 (4.8-10.8)
[2017-07-13 11:07] LABS: Alanine Aminotransferase 68 U/L (12-78); Albumin/Globulin Ratio 1.2 (1.1-1.8); Alkaline Phosphatase 81 U/L (46-116); Anion Gap 10.7 mEq/L (5-15); Aspartate Amino Transferase 33 U/L (15-37); Blood Urea Nitrogen 13 mg/dL (7-18); Calcium 8.7 mg/dL (8.5-10.1); Carbon Dioxide 32 mmol/L (21.0-32.0); Chloride 103 mmol/L (98-107); Chol/HDL Ratio 4.6 (1-3.5); Cholesterol 172 mg/dL (140-200); Creatinine,Serum 1.15 mg/dL (0.70-1.30); Estimated Glomerular Filt Rate 66 ml/min (>60); GFR (African American) 79 ML/MIN (>60); Globulin 3.3 gm/dl (1.3-3.2); Glucose 116 mg/dL (74-106); HDL Cholesterol 37 mg/dL (27-67); LDL Cholesterol 110 mg/dL (0-130); Potassium 3.7 mmoL/L (3.5-5.1); Prostate Specific Ag Screen 2.3 ng/mL (0.0-4.0); Sodium 142 mmol/L (136-145); Thyroid Stimulating Hormone 1.65 uIU/ml (0.358-3.740); Total Protein,Serum 7.3 gm/dL (6.4-8.2); Triglycerides 124 mg/dL (30-200); VLDL Cholesterol 25 mg/dL (0-40)
== END ==
PROVIDERS: Visit Provider Nurse Practitioner Family
DX: K21.9 Gastro-esophageal reflux disease without esophagitis (principal); I10 Essential (primary) hypertension; Z12.5 Encounter for screening for malignant neoplasm of prostate; R61 Generalized hyperhidrosis; N40.1 Benign prostatic hyperplasia with lower urinary tract symptoms; F34.1 Dysthymic disorder
CPT/HCPCS: 36415; 80053; 80061; 84443; 85025; G0103

== ENCOUNTER → 2017-12-24 12:05 | Outpatient (CLI) | payer MEDICARE, SELFPAY ==
[2017-12-24 14:21] LABS: Alanine Aminotransferase 46 U/L (12-78); Albumin Level 4.4 gm/dL (3.4-5.0); Albumin/Globulin Ratio 1.6 (1.1-1.8); Alkaline Phosphatase 76 U/L (46-116); Anion Gap 12.5 mEq/L (5-15); Aspartate Amino Transferase 38 U/L (15-37); Bilirubin,Total 0.9 mg/dL (0.2-1.0); Blood Urea Nitrogen 12 mg/dL (7-18); Carbon Dioxide 30 mmol/L (21.0-32.0); Chloride 103 mmol/L (98-107); Chol/HDL Ratio 4.8 (1-3.5); Cholesterol 162 mg/dL (140-200); Creatinine,Serum 1.16 mg/dL (0.70-1.30); Estimated Glomerular Filt Rate 65 ml/min (>60); GFR (African American) 78 ML/MIN (>60); Globulin 2.8 gm/dl (1.3-3.2); Glucose 101 mg/dL (74-106); HDL Cholesterol 34 mg/dL (27-67); LDL Cholesterol 105 mg/dL (0-130); Potassium 4.5 mmoL/L (3.5-5.1); Sodium 141 mmol/L (136-145); Total Protein,Serum 7.2 gm/dL (6.4-8.2); Triglycerides 116 mg/dL (30-200); VLDL Cholesterol 23 mg/dL (0-40)
[2017-12-24 15:01] LABS: Hemoglobin A1C 5.6 % (0.0-7.0)
== END ==
PROVIDERS: PCP Nurse Practitioner Family; Visit Provider Nurse Practitioner Family
DX: I10 Essential (primary) hypertension (principal); Z79.899 Other long term (current) drug therapy
CPT/HCPCS: 36415; 80053; 80061; 83036

== ENCOUNTER → 2018-01-04 10:27 | Outpatient (CLI) | payer MEDICARE, SELFPAY | PROVIDERS: Family Provider Family Medicine; PCP Nurse Practitioner Family; Visit Provider Internal Medicine | DX: R42 Dizziness and giddiness; R94.31 Abnormal electrocardiogram [ECG] [EKG]; R06.02 Shortness of breath; I20.9 Angina pectoris, unspecified; I11.9 Hypertensive heart disease without heart failure; I44.7 Left bundle-branch block, unspecified; Z87.891 Personal history of nicotine dependence | CPT/HCPCS: 93306 ==

== ENCOUNTER → 2018-03-10 11:42 | Outpatient (CLI) | payer MEDICARE, SELFPAY ==
--- NOTE | 2018-03-10 11:47 | XR_ITS ---
EXAM: XR lumbar spine min 4V HISTORY: ITS.REASON: CERVICAL, THORACIC AND LOW BACK PAIN ORDERING PHYSICIAN: Chitra Barrett PATIENT AGE: 57 years COMPARISON: None FINDINGS: Minimal lumbar curvature convex left. No fracture or dislocation. Anterior osteophytes are present at L3 and L4. Marginal osteophytes on the right are present at L2-L3 and L3-L4. No fracture or dislocation. No lytic or blastic change. There is a 22 mm calcification as seen on the oblique views overlying the upper abdomen likely anterior etiology indeterminate and may be better evaluated with CT if clinically warranted. IMPRESSION: 1. Mild degenerative changes lumbar spine. 2. Indeterminate upper abdominal calcification
--- NOTE | 2018-03-10 11:47 | XR_ITS ---
EXAM: XR cervical spine 5V HISTORY: ITS.REASON: CERVICAL, THORACIC AND LOW BACK PAIN ORDERING PHYSICIAN: Chitra Barrett PATIENT AGE: 57 years COMPARISON: None FINDINGS: There is slight reversal of the cervical lordosis which could be due to patient positioning or muscle spasm. There is degenerative disc disease at C3 C4, C4 C5, C5 C6 and C6-C7. There is mild wedging of C6 and C7 which appears chronic with endplate hypertrophic changes at C5, C6, and C7. Foraminal narrowing is present on the right at C4-5. IMPRESSION: 1. Multilevel degenerative disc disease 2. Reversal lordosis which may be due to patient positioning or muscle spasm. 3. Mild wedging of C6 and C7 may be chronic.
--- NOTE | 2018-03-10 11:47 | XR_ITS ---
EXAM: XR thoracic spine 3V HISTORY: ITS.REASON: CERVICAL, THORACIC AND LOW BACK PAIN Comparison: None FINDINGS: Normal alignment. No fracture or dislocation. No lytic or blastic change. No significant degenerative change. The disc spaces are preserved. There is straightening of the thoracic and kyphosis. This is nonspecific but may be seen with muscle spasm. IMPRESSION: Straightening of thoracic kyphosis which may be seen with muscle spasm otherwise negative
== END ==
PROVIDERS: PCP Internal Medicine Adolescent Medicine; Visit Provider Nurse Practitioner Family
DX: M54.2 Cervicalgia (principal); M54.5 Low back pain; M54.6 Pain in thoracic spine
CPT/HCPCS: 72050; 72072; 72110

== ENCOUNTER → 2018-03-15 09:03 | Outpatient (CLI) | payer MEDICARE, SELFPAY ==
--- NOTE | 2018-03-15 09:15 | US_ITS ---
MM Dig mamm BI DX w/CAD, US breast RT complete INDICATION: Right breast pain ORDERING PHYSICIAN: Chitra Barrett PATIENT AGE: 57 years COMPARISON: None TECHNIQUE: Standard mammographic images obtained along with right breast ultrasound FINDINGS: Increased retroareolar density is noted bilaterally right more extensive than left. No malignant appearing mass or malignant microcalcification. Right breast ultrasound: There is prominent decreased echogenicity in the retroareolar region with posterior acoustical shadowing which was felt to be due to gynecomastia and confirmed on anagram. This was also present on the left but less prominent. IMPRESSION: Bilateral gynecomastia BI-RADS Category: 2 Benign Finding(s) Suggest follow-up as clinically warranted (A letter has been sent to the patient regarding results of the study.)
== END ==
PROVIDERS: PCP Nurse Practitioner Family; Visit Provider Nurse Practitioner Family
DX: N63.10 Unspecified lump in the right breast, unspecified quadrant (principal); R92.8 Other abnormal and inconclusive findings on diagnostic imaging of breast
CPT/HCPCS: 76641; 77066

== ENCOUNTER → 2018-09-07 17:31 | Outpatient (CLI) | payer MEDICARE, SELFPAY ==
[2018-09-07 18:28] LABS: Basophils % 0.6 % (0.1-2.0); Eosinophils # 0.3 K/mm3 (0.0-0.4); Eosinophils % 4.5 % (0.1-12.0); Hematocrit 45.8 % (42.0-52.0); Hemoglobin 15.6 g/dL (14.1-18.0); Lymphocytes % 31.6 % (10-50); Mean Corpuscular HGB Conc 34.1 g/dL (31.8-35.4); Mean Corpuscular Hemoglobin 28.1 pg (27.0-31.2); Mean Corpuscular Volume 82.6 fl (80-94); Mean Platelet Volume 7.5 fl (7.4-10.4); Monocytes # 0.4 K/mm3 (0.1-1.0); Monocytes % 6.8 % (1.7-9.3); Neutrophils # 3.6 K/mm3 (1.8-7.8); Neutrophils % 56.6 % (37.0-80.0); Platelet Count 179 K/mm3 (142-424); Red Blood Count 5.55 M/mm3 (4.60-6.20); Red Cell Distribution Width 13.5 % (11.5-17.5); White Blood Count 6.4 K/mm3 (4.8-10.8)
[2018-09-07 19:31] LABS: Alanine Aminotransferase 43 U/L (12-78); Albumin Level 4.3 gm/dL (3.4-5.0); Albumin/Globulin Ratio 1.4 (1.1-1.8); Alkaline Phosphatase 101 U/L (46-116); Anion Gap 10.7 mEq/L (5-15); Aspartate Amino Transferase 32 U/L (15-37); Bilirubin,Total 0.5 mg/dL (0.2-1.0); Blood Urea Nitrogen 9 mg/dL (7-18); Calcium 8.6 mg/dL (8.5-10.1); Carbon Dioxide 30 mmol/L (21.0-32.0); Chloride 101 mmol/L (98-107); Creatinine,Serum 1.04 mg/dL (0.70-1.30); Estimated Glomerular Filt Rate 73 ml/min (>60); Free Thyroxine Index 1.7 ug/dL (5.93-13.13); GFR (African American) 88 ML/MIN (>60); Glucose 98 mg/dL (74-106); Potassium 3.7 mmoL/L (3.5-5.1); Sodium 138 mmol/L (136-145); T4 (Thyroxine) 5.5 ug/dl (4.7-13.3); Thyroid Stimulating Hormone 2.47 uIU/ml (0.358-3.740); Total Protein,Serum 7.3 gm/dL (6.4-8.2); Triiodothryronine (T3) Uptake 30 % (31-39)
[2018-09-07 19:40] LABS: Hemoglobin A1C 5.5 % (0.0-7.0)
[2018-09-09 06:23] LABS: Prolactin 15.5 ng/mL (4.0-15.2)
[2018-09-09 17:45] LABS: Deamidated Gliadin Abs, IgA 2 units (0-19); Deamidated Gliadin Abs, IgG 2 units (0-19)
== END ==
PROVIDERS: Visit Provider Internal Medicine Adolescent Medicine
DX: R73.9 Hyperglycemia, unspecified; N62 Hypertrophy of breast; Z87.19 Personal history of other diseases of the digestive system; I25.10 Atherosclerotic heart disease of native coronary artery without angina pectoris; R94.6 Abnormal results of thyroid function studies
CPT/HCPCS: 36415; 80053; 83036; 83516; 83735; 84146; 84436; 84443; 84479; 85025

== ENCOUNTER → 2018-11-17 11:53 | Outpatient (CLI) | payer MEDICARE, SELFPAY ==
--- NOTE | 2018-11-17 12:10 | CT_ITS ---
CT angio abdomen CLINICAL INDICATION: Abdominal pain, follow-up abnormal CT scan. Aneurysm of the superior mesenteric artery ITS.REASON: to look at aneurysm of mesenteric artery ORDERING PHYSICIAN: Trace Beard MD PATIENT AGE: 58 years COMPARISON: 06/01/2018 TECHNIQUE: Contrast Used:100ml Optiray 350 Oral Contrast: Axial images obtained with sagittal and coronal reformats. All CT scans at the facility use one or more dose reduction, viz: automated exposure control, ma/kV adjustment per patient size (including targeted exams where dose is matched to indication, i.e. head), or iterative reconstruction technique. 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 There is a kink in the celiac at this region. There is poststenotic dilatation. The superior mesenteric artery origin has an unremarkable appearance. 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 This aneurysm measures 1.7 x 1.6 cm. There is some calcification of the aneurysm wall The remaining portion of the SMA and its branches have an unremarkable appearance. There are 2 right renal arteries and one left renal artery. No renal artery stenosis evident. The SHORTY is patent. IMPRESSION: 1. 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
[2018-11-17 12:19] LABS: Blood Urea Nitrogen 13 mg/dL (7-18); Creatinine,Serum 1.15 mg/dL (0.70-1.30); Estimated Glomerular Filt Rate 65 ml/min (>60); GFR (African American) 79 ML/MIN (>60)
== END ==
PROVIDERS: Visit Provider Internal Medicine
DX: I72.8 Aneurysm of other specified arteries (principal)
CPT/HCPCS: 36415; 74175; 82565; 84520; Q9967

== ENCOUNTER → 2019-05-09 11:56 | Outpatient (CLI) | payer MEDICARE, SELFPAY ==
--- NOTE | 2019-05-09 12:01 | CT_ITS ---
Procedure: CT ANGIO ABDOMEN CLINICAL HISTORY: mesenteric artery stenosis Abdominal pain, mid epigastric pain, mesenteric artery stenosis COMPARISON: [facility] CT angio abdomen from 11/17/2018 TECHNIQUE: IV Contrast: 100ml Optiray 350 Axial images obtained with sagittal and coronal reformats. All CT scans at the facility use one or more dose reduction, viz: automated exposure control, ma/kV adjustment per patient size (including targeted exams where dose is matched to indication, i.e. head), or iterative reconstruction technique. 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 Poststenotic dilatation once again noted. There is a kink in the celiac artery at this area as previously described. These findings are not significantly changed. This stenosis is short-segment at 75 percent with a length of 3 mm and is 1 cm distal to the origin of the celiac artery. The superior mesenteric artery and inferior mesenteric artery are unremarkable. No evidence of aortic aneurysm or dissection. There are 2 right renal arteries which have an unremarkable appearance. There are 2 left renal arteries the more dominant of the 2 being inferior. They both originate from the aortic trunk at the same area. The no renal artery stenosis evident. The iliac arteries are unremarkable. The small saccular aneurysm projecting off of the inferior pancreaticoduodenal artery is unchanged measuring approximately 1.5 cm Non angiographic findings: Gynecomastia on the right. Mild atelectatic change or fibrotic change in the right middle lobe. IMPRESSION: 1. No change in the high-grade stenosis of the ostium of the celiac artery. 2. No change saccular aneurysm projecting from the inferior pancreaticoduodenal artery Dictated by: Dagoberto Contreras MD 05/11/2019 09:12 Electronically signed by Dagoberto Contreras MD in [place] 05/11/2019 09:12
[2019-05-09 13:24] LABS: Blood Urea Nitrogen 8 mg/dL (7-18); Creatinine,Serum 0.87 mg/dL (0.70-1.30); Estimated Glomerular Filt Rate 90 ml/min (>60); GFR (African American) 109 ML/MIN (>60)
== END ==
PROVIDERS: Internal Medicine; PCP Nurse Practitioner Family; Visit Provider Nurse Practitioner Family
DX: I20.9 Angina pectoris, unspecified (principal); I72.8 Aneurysm of other specified arteries; I73.9 Peripheral vascular disease, unspecified; I77.1 Stricture of artery; R06.00 Dyspnea, unspecified; R10.819 Abdominal tenderness, unspecified site
CPT/HCPCS: 36415; 74175; 82565; 84520; Q9967

== ENCOUNTER 2019-07-03 09:54 | Observation (INO) ==
[2019-07-03 10:30] LABS: Basophils % 0.3 % (0.1-2.0); Eosinophils # 0.2 K/mm3 (0.0-0.4); Eosinophils % 2.5 % (0.1-12.0); Hematocrit 50.6 % (42.0-52.0); Hemoglobin 16.9 g/dL (14.1-18.0); Lymphocytes # 1.4 K/mm3 (0.7-4.5); Lymphocytes % 14.5 % (10-50); Mean Corpuscular HGB Conc 33.5 g/dL (31.8-35.4); Mean Corpuscular Volume 84.6 fl (80-94); Mean Platelet Volume 7.9 fl (7.4-10.4); Monocytes # 0.5 K/mm3 (0.1-1.0); Monocytes % 5.2 % (1.7-9.3); Neutrophils # 7.5 K/mm3 (1.8-7.8); Neutrophils % 77.5 % (37.0-80.0); Platelet Count 170 K/mm3 (142-424); Red Blood Count 5.98 M/mm3 (4.60-6.20); Red Cell Distribution Width 13.4 % (11.5-17.5); White Blood Count 9.7 K/mm3 (4.8-10.8)
[2019-07-03 10:35] LABS: Albumin Level 4.7 g/dl (3.5-5.0); Albumin/Globulin Ratio 1.6 (1.1-1.8); Anion Gap 16.5 mEq/L (5-15); Bilirubin,Total 1.6 mg/dl (0.2-1.3); Calcium 9.6 mg/dl (8.4-10.2); Total Protein,Serum 7.7 g/dl (6.3-8.2)
[2019-07-03 10:38] LABS: Microscopic, Urine URINE MICROSCOPIC (MICROSCOPIC)
[2019-07-03 10:39] LABS: Appearance,Urine SL CLOUDY (Clear); Blood, Urine TRACE-L (Negative); Color,Urine BROWN (Yellow); Glucose,Urine (UA) Negative (Negative); Ketones,Urine Negative (Negative); Leukocyte Esterase,Urine Negative (Negative); Protein,Urine 1+ (Negative); Specific Gravity, Urine >= 1.030 (1.005-1.030)
[2019-07-03 10:44] LABS: Bilirubin,Urine Negative (Negative)
[2019-07-03 10:49] LABS: Amorphous Sediment,Urine 1+ /lpf; Squamous Epithelial Cell,Urine 20-50 #/hpf (0-5); WBC,Urine Occasional #/hpf (0-3)
--- NOTE | 2019-07-03 12:52 | Emergency Department Note ---
ED Disposition Clinical Impression: Appendicitis Qualifiers: Appendicitis type: acute appendicitis Acute appendicitis type: with localized peritonitis Appendicitis gangrene presence: unspecified whether gangrene present Appendicitis perforation presence: without perforation Appendicitis abscess presence: without abscess Qualified Code(s): K35.30 - Acute appendicitis with localized peritonitis, without perforation or gangrene Disposition: Admitted as Observation Condition on Discharge: Fair - Critical Care Critical Care Time: No Attestation: On 07/03/19, the high probability of a clinically significant, sudden or life threatening deterioration of the following system(s) required my full and direct attention, intervention and personal management. The time I documented below is in addition to time spent performing reported procedures but includes the following listed in this critical care notation. Medical Decision Making - Medical Records Medical records reviewed: Yes: I reviewed the patient's medical records. - Rodríguez Inquiry Pt receiving controlled substance: No Rodríguez was queried for this patient: No Vital Signs: 07/03/19 10:04 07/03/19 12:57 Temperature 98.3 F 98.3 F Temperature Source Oral Oral Pulse Rate 85 Pulse Rate [Right Radial] 91 H Respiratory Rate 18 17 Blood Pressure 130/65 Blood Pressure [Right Arm] 134/51 L Blood Pressure Mean [Right Arm] 78 02 Sat by Pulse Oximetry 91 L Oxygen Delivery Method Room Air Room Air - Lab Data Lab Results 07/03/19 10:08: Urine Color Brown, Urine Appearance Sl cloudy, Urine pH 6.0, Ur Specific Economy >= 1.030, Urine Protein 1+, Urine Glucose (UA) Negative, Urine Ketones Negative, Urine Blood Trace-l, Urine Nitrate Positive, Urine Bilirubin Negative, Urine Urobilinogen 1.0, Ur Leukocyte Esterase Negative, Urine RBC 5- 10, Urine WBC Occasional, Ur Squamous Epith Cells 20-50, Amorphous Sediment 1+, Urine Bacteria None 07/03/19 10:20: WBC 9.7, RBC 5.98, Hgb 16.9, Hct 50.6, MCV 84.6, MCH 28.3, MCHC 33.5, RDW 13.4, Plt Count 170, MPV 7.9, Neut % (Auto) 77.5, Lymph % (Auto) 14.5, Taylor % (Auto) 5.2, Eos % (Auto) 2.5, Baso % (Auto) 0.3, Neut # (Auto) 7.5, Lymph # (Auto) 1.4, Taylor # (Auto) 0.5, Eos # (Auto) 0.2, Baso # (Auto) 0.0 07/03/19 10:20: Sodium 139, Potassium 3.5, Chloride 97 L, Carbon Dioxide 29, Anion Gap 16.5 H, BUN 13, Creatinine 1.20, Estimated Creat Clear 121, Estimated GFR 62, Est GFR ( Amer) 75, Glucose 116 H, Calcium 9.6, Total Bilirubin 1.6 H, AST 43, ALT 35, Alkaline Phosphatase 62, Total Protein 7.7, Albumin 4.7, Globulin 3.0, Albumin/Globulin Ratio 1.6, Amylase 76, Lipase 96 Result diagrams: 07/03/19 10:20 07/03/19 10:20 Orders (Tests/Meds): ED MEDICATIONS Generic Name Dose Route Start Last Admin Trade Name Freq PRN Reason Stop Dose Admin Acetaminophen 650 mg 07/03/19 14:30 Acetaminophen 325mg Tab PO 08/02/19 14:29 Q6HP PRN Mild to Moderate Pain Hydrocodone Bitart/Acetaminophen 1 tab 07/03/19 14:30 [place] 5/325mg Tablet PO 08/02/19 14:29 Q6HP PRN Moderate to Severe Pain Lactated Ringer's 1,000 mls @ 125 mls/hr 07/03/19 14:30 Lactated Ringer's 1000 Ml Bag IV 08/02/19 14:29 .Q8H ERROL Ampicillin Sodium/Sulbactam 100 mls @ 200 mls/hr 07/03/19 19:00 Sodium 3 gm/ Sodium Chloride IV 07/17/19 18:59 Q6H [facility] Protocol Ketorolac Tromethamine 30 mg 07/03/19 14:54 Toradol 30mg/Ml Vial IM 07/03/19 16:30 NEEDED PRN Moderate Pain Meperidine HCl 25 mg 07/03/19 14:54 Meperidine 25mg/Ml 1ml Syringe IV 07/03/19 16:30 Q5MINP PRN SHIVERING Morphine Sulfate 2 mg 07/03/19 14:30 Morphine 2mg/Ml Syringe IV 08/02/19 14:29 Q2HP PRN Moderate to Severe Pain Morphine Sulfate 2 mg 07/03/19 14:54 Morphine 2mg/Ml Syringe IV 07/03/19 16:30 Q5MINP PRN Severe Pain Ondansetron HCl 4 mg 07/03/19 14:30 Zofran 4mg/2ml Vial IV 08/02/19 14:29 Q6HP PRN Nausea Ondansetron HCl 4 mg 07/03/19 14:54 Zofran 4mg/2ml Vial IV 07/03/19 16:30 Q6HP PRN Nausea And Vomiting Sodium Chloride 10 ml 07/03/19 14:30 Saline Flush 10ml Syringe IV 08/02/19 14:29 NEEDED PRN Maintain IV Site Discontinued Medications Generic Name Dose Route Start Last Admin Trade Name Freq PRN Reason Stop Dose Admin Sodium Chloride 1,000 mls @ 999 mls/hr 07/03/19 10:15 07/03/19 10:24 Sod Chlor 0.9% 1000ml Bag IV 07/03/19 11:15 999 mls/hr .Q1H1M ERROL Administration Ampicillin Sodium/Sulbactam 100 mls @ 200 mls/hr 07/03/19 13:00 07/03/19 13:37 Sodium 3 gm/ Sodium Chloride IV 07/03/19 13:01 200 mls/hr ONCE ONE Administration Protocol Ketorolac Tromethamine 30 mg 07/03/19 10:11 07/03/19 10:24 Toradol 30mg/Ml Vial IV 07/03/19 10:12 30 mg ONCE ONE Administration Ondansetron HCl 4 mg 07/03/19 10:11 07/03/19 10:24 Zofran 4mg/2ml Vial IV 07/03/19 10:12 4 mg ONCE ONE Administration ORDERS Category Date Time Status Urinalysis (cathed specimen) Timed Lab 07/03/19 13:30 Received Medical Decision Narrative: In summary patient is a nontoxic-appearing 58-year-old male who presents to the emergency department for evaluation of abdominal pain. On physical exam patient has significant tenderness to his right lower quadrant, with rebound tenderness as well as Rovsing sign positive and tenderness at McBurney's point. Given this highly concerned for possible appendicitis. Differential diagnosis includes appendicitis, small bowel obstruction, enterocolitis. This ordered CBC, CMP, urinalysis, and CT abdomen pelvis with IV contrast. Patient's initial labs returned and are nonactionable at this time. Patient CT returns is concerning for a dilated appendix of 9 mm as well as some fat stranding. Dr. Lobato of general surgery here at [facility] was consulted. Evaluating the patient Dr. Lobato was concerned for potential appendicitis. Patient admitted taken directly to the OR for urgent l aparoscopic. General Adult HPI - General Chief complaint: Abdominal Pain Stated complaint: pelvic and stomach pain Time Seen by Provider: 07/03/19 10:10 Mode of Arrival: Ambulatory Limitations: No Limitations Description of Symptoms (Recalled from ER Triage Doc. by RN): pt presents to ed with c/o abdominal pain/suprapubic. pt denies fever, nausea/v/d/or difficulty voiding. - History of Present Illness HPI narrative: Is a 58-year-old male who presents the emergency department for evaluation of abdominal pain. Patient states he has had pain for the last 2 to 3 days. Patient localizes his pain to his lower right quadrant. Patient describes the pain as sharp in nature. Worse when he eats and when he moves around. Nothing makes it better. Patient does endorse nausea without vomiting, he denies fevers, chills, chest pain, shortness of breath, or dysuria. Onset (ago): day(s) Location: abdomen Radiation: non-radiation Quality: stabbing Consistency: constant Relieving factors: none Exacerbating factors: eating, movement Associated symptoms: nausea/vomiting Treatments prior to arrival: none - Related Data Home Medications Medication Instructions Recorded Confirmed bupropion HCl 150 mg tablet,12 hr 150 mg PO BID 05/18/17 07/03/19 sustained-release trazodone 150 mg tablet 150 mg PO HS tab 05/18/17 07/03/19 Fluticasone/Vilanterol [Breo 1 each IH DAILY 06/01/18 07/03/19 Ellipta 100-25 Mcg INH] lovastatin 20 mg tablet 40 mg PO DAILY tab 05/16/19 07/03/19 quetiapine 300 mg tablet 150 mg PO HS tab 05/16/19 07/03/19 sertraline 100 mg tablet 100 mg PO DAILY tab 05/16/19 07/03/19 Furosemide [Furosemide 80mg Tab] 80 mg PO DAILY 07/03/19 07/03/19 Isosorbide Mononitrate [Imdur 30mg 30 mg PO DAILY 07/03/19 07/03/19 ER tablet] Mirabegron [Myrbetriq] 25 mg PO DAILY 07/03/19 07/03/19 Omeprazole [Omeprazole 40mg 40 mg PO DAILY 07/03/19 07/03/19 Capsule] Spironolactone [Aldactone 100mg 100 mg PO DAILY 07/03/19 07/03/19 Tab] Previous Rx's Medication Instructions Recorded amlodipine 5 mg tablet 5 mg PO DAILY #90 tab 03/08/19 ranolazine 500 mg tablet,extended 500 mg PO BID #180 tab 03/08/19 release,12 hr bisoprolol fumarate 10 mg tablet 10 mg PO DAILY #90 tab 04/28/19 Allergies Allergy/AdvReac Type Severity Reaction Status Date / Time No Known Allergies Allergy Verified 07/03/19 10:09 [facility] History - Hepatitis A Screen Drug use history?: No High risk sexual behaviors?: No History of sexually transmitted infection?: No Currently employed?: No Childcare worker?: No Do you have indoor plumbing?: Yes Do you have electricity?: Yes Attestation statement:: This patient has been screened for Hepatitis A risk factors. I have reviewed the patient's past medical history: Yes Medical History: Reports:: Congestive Heart Failure, Coronary Artery Disease, Hyperlipidemia, Hypertension Denies:: Chronic Obstructive Pulmonary Disease (COPD), Diabetes Mellitus Type 1, Diabetes Mellitus Type 2, Myocardial Infarction Laterality Cases: Right: Arthroscopy Knee Other Surgeries: Yes: Other Amputation: No Comment: [facility] 05/18/16 - Social History Smoking Status: Former smoker Tobacco Type: cigarettes Alcohol Intake: former Alcohol Intake Frequency:: other Substance Use Type: denies use Occupational Status: retired Housing: house Household Members: spouse Family Hx:: Unable to obtain, Coronary Artery Disease, Heart Attack ROS Obtained: Yes All systems reviewed & no additional complaints Physical Exam - General General appearance: alert, in no apparent distress - Head Head exam: atraumatic, normocephalic - Chest Chest inspection: Present: normal inspection, symmetric chest wall rise - Respiratory Respiratory exam: Present: normal lung sounds bilaterally, respiratory distress - Cardiovascular Cardiovascular exam: Present: regular rate, normal rhythm - Abdominal Exam Abdominal exam: Present: soft, tenderness, rebound. Absent: distention Abdominal tenderness: Present: RLQ - Neurological Exam Neurological exam: Present: alert, oriented X3 - Psychiatric Psychiatric exam: Present: normal affect
--- NOTE | 2019-07-03 12:57 | History & Physical Report ---
HPI HPI: Patient is a 58-year-old male. He states that he has had some pain in the right lower abdomen and right pelvic area for a couple of days. It is been relatively persistent. He describes some subjective fevers. He presented to the emergency department where he was seen and evaluated. Work-up included CBC which was within normal limits. He had a CT scan without any contrast which revealed findings of prominence of the appendix with possible haziness. This was concerning for uncomplicated appendicitis. Surgery was contacted. [facility] History Medical History: Reports:: Congestive Heart Failure, Coronary Artery Disease, Hyperlipidemia, Hypertension Denies:: Chronic Obstructive Pulmonary Disease (COPD), Diabetes Mellitus Type 1, Diabetes Mellitus Type 2, Myocardial Infarction *Have you ever received a pneumonia vaccine?: No *Have you received a flu vaccine this season?: No Laterality Cases: Right: Arthroscopy Knee Other Surgeries: Yes: Other Amputation: No - *Social History Smoking Status: Former smoker Tobacco Type: cigarettes Alcohol Intake: former Alcohol Intake Frequency:: other Substance Use Type: denies use *Occupational Status:: retired Housing: house Household Members: spouse *Travel in the last 8 weeks: None Family Hx:: Unable to obtain, Coronary Artery Disease, Heart Attack Meds Home Medications Medication Instructions Recorded Confirmed Type bupropion HCl 150 mg tablet,12 hr 150 mg PO BID 05/18/17 03/01/19 History sustained-release melatonin 5 mg tablet 5 mg PO HS PRN 05/18/17 03/01/19 History montelukast 10 mg tablet 10 mg PO QPM 05/18/17 03/01/19 History trazodone 150 mg tablet 150 mg PO QHS tab 05/18/17 03/01/19 History spironolactone 100 mg tablet 100 mg PO QDAY #90 tab 01/24/18 03/01/19 Rx Fluticasone/Vilanterol [Breo 1 each IH DAILY 06/01/18 03/01/19 History Ellipta 100-25 Mcg INH] isosorbide mononitrate 30 mg 30 mg PO DAILY #30 tab 11/01/18 03/01/19 Rx tablet,extended release 24 hr omeprazole 40 mg capsule,delayed 40 mg PO DAILY #30 cap 11/30/18 03/01/19 Rx release furosemide 80 mg tablet 80 mg PO DAILY #90 tab 12/19/18 03/01/19 Rx amlodipine 5 mg tablet 5 mg PO DAILY #90 tab 03/08/19 Rx ranolazine 500 mg tablet,extended 500 mg PO BID #180 tab 03/08/19 Rx release,12 hr bisoprolol fumarate 10 mg tablet 10 mg PO DAILY #90 tab 04/28/19 Rx lovastatin 20 mg tablet 40 mg PO DAILY tab 05/16/19 History mirabegron 25 mg tablet,extended mg PO DAILY tab 05/16/19 05/16/19 History release 24 hr quetiapine 300 mg tablet 300 mg PO QHS tab 05/16/19 05/16/19 History sertraline 100 mg tablet mg PO DAILY tab 05/16/19 05/16/19 History Allergies Allergy/AdvReac Type Severity Reaction Status Date / Time No Known Allergies Allergy Verified 07/03/19 10:09 Exam Vital signs and Labs for Last 24 Hours: Temp Pulse Resp BP Pulse Ox 98.3 F 91 H 18 134/51 L 91 L 07/03/19 10:04 07/03/19 10:04 07/03/19 10:04 07/03/19 10:04 07/03/19 10:04 Laboratory Results - last 24 hr 07/03/19 10:08: Urine Color Brown, Urine Appearance Sl cloudy, Urine pH 6.0, Ur Specific [place] >= 1.030, Urine Protein 1+, Urine Glucose (UA) Negative, Urine Ketones Negative, Urine Blood Trace-l, Urine Nitrate Positive, Urine Bilirubin Negative, Urine Urobilinogen 1.0, Ur Leukocyte Esterase Negative, Urine RBC 5- 10, Urine WBC Occasional, Ur Squamous Epith Cells 20-50, Amorphous Sediment 1+, Urine Bacteria None 07/03/19 10:20: WBC 9.7, RBC 5.98, Hgb 16.9, Hct 50.6, MCV 84.6, MCH 28.3, MCHC 33.5, RDW 13.4, Plt Count 170, MPV 7.9, Neut % (Auto) 77.5, Lymph % (Auto) 14.5, [place] % (Auto) 5.2, Eos % (Auto) 2.5, Baso % (Auto) 0.3, Neut # (Auto) 7.5, Lymph # (Auto) 1.4, [place] # (Auto) 0.5, Eos # (Auto) 0.2, Baso # (Auto) 0.0 07/03/19 10:20: Sodium 139, Potassium 3.5, Chloride 97 L, Carbon Dioxide 29, Anion Gap 16.5 H, BUN 13, Creatinine 1.20, Estimated Creat Clear 121, Estimated GFR 62, Est GFR ( Amer) 75, Glucose 116 H, Calcium 9.6, Total Bilirubin 1.6 H, AST 43, ALT 35, Alkaline Phosphatase 62, Total Protein 7.7, Albumin 4.7, Globulin 3.0, Albumin/Globulin Ratio 1.6, Amylase 76, Lipase 96 I & O for Last 24 hours: Intake & Output 07/01/19 07/02/19 07/03/19 07/04/19 11:59 11:59 11:59 11:59 Weight 285 lb - *Routine HEENT Exam Head: Present: normocephalic Eye: Present: EOMI, PERRL ENT: Present: mucous membranes moist - *Routine Neck Exam Present: supple. Absent: lymphadenopathy - *Routine Respiratory Exam Present: CTA bilaterally - *Routine Cardiovascular Exam Present: RRR - *Routine Abdominal Exam Present: soft, normoactive bowel sounds, tenderness Comments: He does have some tenderness with rebound in the right lower quadrant. - *Routine Extremities Exam Absent: cyanosis, clubbing, edema - *Routine Skin Exam Present: warm. Absent: rash - *Routine Neurological Exam Present: alert, oriented X3 Results - Results Lab Results Last 24 Hours:: Laboratory Results - last 24 hr 07/03/19 10:08: Urine Color Brown, Urine Appearance Sl cloudy, Urine pH 6.0, Ur Specific [place] >= 1.030, Urine Protein 1+, Urine Glucose (UA) Negative, Urine Ketones Negative, Urine Blood Trace-l, Urine Nitrate Positive, Urine Bilirubin Negative, Urine Urobilinogen 1.0, Ur Leukocyte Esterase Negative, Urine RBC 5- 10, Urine WBC Occasional, Ur Squamous Epith Cells 20-50, Amorphous Sediment 1+, Urine Bacteria None 07/03/19 10:20: WBC 9.7, RBC 5.98, Hgb 16.9, Hct 50.6, MCV 84.6, MCH 28.3, MCHC 33.5, RDW 13.4, Plt Count 170, MPV 7.9, Neut % (Auto) 77.5, Lymph % (Auto) 14.5, [place] % (Auto) 5.2, Eos % (Auto) 2.5, Baso % (Auto) 0.3, Neut # (Auto) 7.5, Lymph # (Auto) 1.4, [place] # (Auto) 0.5, Eos # (Auto) 0.2, Baso # (Auto) 0.0 07/03/19 10:20: Sodium 139, Potassium 3.5, Chloride 97 L, Carbon Dioxide 29, Anion Gap 16.5 H, BUN 13, Creatinine 1.20, Estimated Creat Clear 121, Estimated GFR 62, Est GFR ( Amer) 75, Glucose 116 H, Calcium 9.6, Total Bilirubin 1.6 H, AST 43, ALT 35, Alkaline Phosphatase 62, Total Protein 7.7, Albumin 4.7, Globulin 3.0, Albumin/Globulin Ratio 1.6, Amylase 76, Lipase 96 Assessment and Plan - Assessment and plan all Dx Assessment and Plan for all problems:: Based on the CT scan findings revealing increasing diameter of the appendix from previous CT scan done last month with some haziness and based on his clinical examination the possibility of appendicitis is quite appreciable. Plan for laparoscopy with attempt at laparoscopic appendectomy.
--- NOTE | 2019-07-03 13:54 | Progress Note ---
[facility] Anesthesia Checklist - Structural Data Admitted From: Home Planned Operative Procedure/s: lap appy Consent for Planned Operative Procedure(s) Verified: Yes - Airway Assessment C-Spine Mobility Assessed: Yes TMJ Mobility Assessed: Yes Dentition: Edentulous - Neurological Assessment Level of Consciousness: Awake, Alert, Appropriate - Anesthesia Plan Anesthesia Risk discussed: Yes Anesthesia Plan: Verified ASA Class: III Anesthesia Type: General [facility] History I have reviewed the patient's past medical history: Yes Medical History: Reports:: Congestive Heart Failure, Coronary Artery Disease, Hyperlipidemia, Hypertension Denies:: Chronic Obstructive Pulmonary Disease (COPD), Diabetes Mellitus Type 1, Diabetes Mellitus Type 2, Myocardial Infarction *Have you ever received a pneumonia vaccine?: No *Have you received a flu vaccine this season?: No Anesthesia experience/problems:: none Laterality Cases: Right: Arthroscopy Knee Other Surgeries: Yes: Other Amputation: No - *Social History Smoking Status: Former smoker Tobacco Type: cigarettes Alcohol Intake: former Alcohol Intake Frequency:: other Substance Use Type: denies use *Occupational Status:: retired Housing: house Household Members: spouse *Travel in the last 8 weeks: None Family Hx:: Unable to obtain, Coronary Artery Disease, Heart Attack
--- NOTE | 2019-07-03 14:28 | Operative Note ---
Date of procedure: 07/03/19 Pre-op Diagnosis:: Acute appendicitis Post-op Diagnosis:: Same Procedure performed:: Laparoscopic appendectomy Surgeon:: Ministerio Lobato MD SURVEY QUESTIONNAIRE DESIGNER:: Frankie Yo Anesthesia: GETA Estimated blood loss (mL): 15 Clinical Note:: Patient is a 58-year-old male. He states that he has had some pain in the right lower abdomen and right pelvic area for a couple of days. It is been relatively persistent. He describes some subjective fevers. He presented to the emergency department where he was seen and evaluated. Work-up included CBC which was within normal limits. He had a CT scan without any contrast which revealed findings of prominence of the appendix with possible haziness. This was concerning for uncomplicated appendicitis. Surgery was contacted. Patient was seen and examined. He did have tenderness in the right lower quadrant with some rebound at McBurney's point. Given the findings on CT scan and clinical examination plan was made for emergent laparoscopy. Operative findings:: Patient had acutely inflamed edematous somewhat indurated appendix. It was nonperforated and nonsuppurative. Operative note:: Patient was taken to the operating room. He was given preoperative intravenous antibiotics. In the operating room he was placed in a supine position. General anesthesia was induced via endotracheal tube. Sarah catheter was placed. His abdomen was prepped and draped in the standard surgical fashion. Subumbilical skin incision was made and while performing abdominal wall lift Veress needle was inserted. CO2 pneumoperitoneum was achieved to 15 mmHg. 12 mm optical trocar was inserted at the umbilicus. Intraperitoneal contents were visualized. He was positioned in Trendelenburg left side down. 5 mm suprapubic trocar was inserted. Additional 5 mm trocar was inserted in the right upper abdomen. Viscera were swept medially to identify the cecum. The appendix was identified. It was grasped with an endoscopic Sukhjinder. Mesoappendix was divided with CELESTINA ultrasonic harmonic melly with care taken to coagulate the appendiceal artery and the process. Dissection was carried down to the appendiceal base. The appendix was divided at its base with an endoscopic ALICE linear cutting stapling device. The appendix was placed within an Endo Catch retrieval device and removed from the peritoneal cavity via the umbilical trocar site which required some extension of the fascial incision for delivery of the thickened fatty appendix. The staple line was inspected for hemostasis and integrity which was assured. Limited irrigation was performed. There appeared to be good hemostasis. Trochars were removed as CO2 pneumoperitoneum was evacuated. Fascia at the umbilicus was closed with several interrupted 0 Vicryl sutures. Local anesthetic was infiltrated. Skin incisions were closed with 4-0 Monocryl in a subcuticular fashion. Steri-Strips and dressings were applied. Condition: stable Disposition: PACU Specimens:: Appendix Complications:: None immediately apparent
--- NOTE | 2019-07-03 14:41 | Progress Note ---
[facility] Anesthesia Record Part I Intake, IV Amount: 1,200 Estimated blood loss (mL): 0 Urine output (mL): 150 Blood Pressure: 143/73 SaO2: 92 Pulse Rate: 88 Respiratory Rate: 12 Temperature: 97.8 F Patient is:: Awake, Stable Stable to PACU at:: 14:35
--- NOTE | 2019-07-03 15:57 | Pharmacy Consult Notes ---
[facility] Pharmacy VTE Monitoring - Patient Demographics Admission date: 07/03/19 Report Date: 07/03/19 Time: 15:56 Allergies/Adverse Reactions: Patient Allergies No Known Allergies Allergy (Verified 07/03/19 10:09) Height: 1.85 m Weight: 127.006 kg Patient Problems: Current Active Problems (Last Updated 03/01/19 @ 09:52 by Carmela Philip RN) Appendicitis (Acute) - VTE Risk Labs: VTE Related Lab Results Hgb 16.9 g/dL (14.1-18.0) 07/03/19 10:20 Hct 50.6 % (42.0-52.0) 07/03/19 10:20 Plt Count 170 K/mm3 (142-424) 07/03/19 10:20 BUN 13 mg/dl (9-20) 07/03/19 10:20 Creatinine 1.20 mg/dl (0.66-1.25) 07/03/19 10:20 Estimated Creat Clear 121 mL/min (50-200) 07/03/19 10:20 VTE Score: 5 VTE Risk Level: Low Risk - Prophylaxis Types of VTE Prophylaxis: TEDS Knee High (STEFANIE HOSE ORDER PLACED) Location of Applied Device: Bilateral Lower Extremeties
--- NOTE | 2019-07-03 17:43 | Consult Report ---
*Admission Date: 07/03/19 *Reason for consult:: Postoperative medical management *History of present illness: Patient is a 58-year-old male. He states that he has had some pain in the right lower abdomen and right pelvic area for a couple of days. It is been relatively persistent. He describes some subjective fevers. He presented to the emergency department where he was seen and evaluated. Work-up included CBC which was within normal limits. He had a CT scan without any contrast which revealed findings of prominence of the appendix with possible haziness. This was concerning for uncomplicated appendicitis. Surgery was contacted. Above note per surgery. Surgery was performed with laparoscopic appendectomy with no immediate complications noted. Patient transferred to second floor in good addition. Patient is alert, breathing comfortably, no complaints. Notes that over the past several months he feels like his heart conditions have been under good control. He denies symptoms of swelling, orthopnea, dyspnea with exertion. Denies angina. Has been compliant with his medications. [facility] History I have reviewed the patient's past medical history: Yes Medical History: Reports:: Congestive Heart Failure (With reduced ejection fraction of 45 to 50%), Coronary Artery Disease, Hyperlipidemia, Hypertension Denies:: Chronic Obstructive Pulmonary Disease (COPD), Diabetes Mellitus Type 1, Diabetes Mellitus Type 2, Myocardial Infarction *Have you ever received a pneumonia vaccine?: No *Have you received a flu vaccine this season?: No Anesthesia experience/problems:: none Laterality Cases: Right: Arthroscopy Knee Other Surgeries: Yes: Other Amputation: No - *Social History Educational Level: Attended High School Smoking Status: Former smoker Tobacco Type: cigarettes Alcohol Intake: former Alcohol Intake Frequency:: a few times a week Substance Use Type: denies use *Occupational Status:: disabled Housing: house Household Members: spouse *Travel in the last 8 weeks: None Family Hx:: Unable to obtain, Coronary Artery Disease, Heart Attack Review of Systems - Review of Systems Review of systems:: pertinent systems reviewed and negative unless documented below Other than patient's GI symptoms from the last 3 or 4 days which have resolved he denies pulmonary, cardiac or musculoskeletal symptoms. Meds Home Medications Medication Instructions Recorded Confirmed Type bupropion HCl 150 mg tablet,12 hr 150 mg PO BID 05/18/17 07/03/19 History sustained-release trazodone 150 mg tablet 150 mg PO HS tab 05/18/17 07/03/19 History Fluticasone/Vilanterol [Breo 1 each IH DAILY 06/01/18 07/03/19 History Ellipta 100-25 Mcg INH] amlodipine 5 mg tablet 5 mg PO DAILY #90 tab 03/08/19 07/03/19 Rx ranolazine 500 mg tablet,extended 500 mg PO BID #180 tab 03/08/19 07/03/19 Rx release,12 hr bisoprolol fumarate 10 mg tablet 10 mg PO DAILY #90 tab 04/28/19 07/03/19 Rx lovastatin 20 mg tablet 40 mg PO DAILY tab 05/16/19 07/03/19 History quetiapine 300 mg tablet 150 mg PO HS tab 05/16/19 07/03/19 History sertraline 100 mg tablet 100 mg PO DAILY tab 05/16/19 07/03/19 History Furosemide [Furosemide 80mg Tab] 80 mg PO DAILY 07/03/19 07/03/19 History Isosorbide Mononitrate [Imdur 30mg 30 mg PO DAILY 07/03/19 07/03/19 History ER tablet] Mirabegron [Myrbetriq] 25 mg PO DAILY 07/03/19 07/03/19 History Omeprazole [Omeprazole 40mg 40 mg PO DAILY 07/03/19 07/03/19 History Capsule] Spironolactone [Aldactone 100mg 100 mg PO DAILY 07/03/19 07/03/19 History Tab] Allergies Allergy/AdvReac Type Severity Reaction Status Date / Time No Known Allergies Allergy Verified 07/03/19 10:09 Exam Vital signs and Labs for Last 24 Hours: Temp Pulse Resp BP Pulse Ox 98 F 83 16 132/62 90 L 07/03/19 16:10 07/03/19 16:10 07/03/19 16:10 07/03/19 16:10 07/03/19 16:10 Laboratory Results - last 24 hr 07/03/19 10:08: Urine Color Brown, Urine Appearance Sl cloudy, Urine pH 6.0, Ur Specific [place] >= 1.030, Urine Protein 1+, Urine Glucose (UA) Negative, Urine Ketones Negative, Urine Blood Trace-l, Urine Nitrate Positive, Urine Bilirubin Negative, Urine Urobilinogen 1.0, Ur Leukocyte Esterase Negative, Urine RBC 5- 10, Urine WBC Occasional, Ur Squamous Epith Cells 20-50, Amorphous Sediment 1+, Urine Bacteria None 07/03/19 10:20: WBC 9.7, RBC 5.98, Hgb 16.9, Hct 50.6, MCV 84.6, MCH 28.3, MCHC 33.5, RDW 13.4, Plt Count 170, MPV 7.9, Neut % (Auto) 77.5, Lymph % (Auto) 14.5, [place] % (Auto) 5.2, Eos % (Auto) 2.5, Baso % (Auto) 0.3, Neut # (Auto) 7.5, Lymph # (Auto) 1.4, [place] # (Auto) 0.5, Eos # (Auto) 0.2, Baso # (Auto) 0.0 07/03/19 10:20: Sodium 139, Potassium 3.5, Chloride 97 L, Carbon Dioxide 29, Anion Gap 16.5 H, BUN 13, Creatinine 1.20, Estimated Creat Clear 121, Estimated GFR 62, Est GFR ( Amer) 75, Glucose 116 H, Calcium 9.6, Total Bilirubin 1.6 H, AST 43, ALT 35, Alkaline Phosphatase 62, Total Protein 7.7, Albumin 4.7, Globulin 3.0, Albumin/Globulin Ratio 1.6, Amylase 76, Lipase 96 07/03/19 13:30: Urine Color [place] yellow, Urine Appearance Clear, Urine pH 6.5, Ur Specific [place] >= 1.030, Urine Protein 1+, Urine Glucose (UA) Negative, Urine Ketones Trace, Urine Blood Negative, Urine Nitrate Positive, Urine Bilirubin Negative, Urine Urobilinogen 1.0, Ur Leukocyte Esterase Negative, Urine RBC None, Urine WBC 3-5, Ur Squamous Epith Cells Occasional, Urine Bacteria 1+ 07/03/19 16:21: POC Glucose 102 I & O for Last 24 hours: Intake & Output 07/01/19 07/02/19 07/03/19 07/04/19 11:59 11:59 11:59 11:59 Intake Total 1680 / 1680 Balance 1680 / 1680 Weight 285 lb 280 lb - *Routine HEENT Exam Head: Present: normocephalic Eye: Present: EOMI, PERRL ENT: Present: mucous membranes moist - *Routine Neck Exam Present: supple. Absent: lymphadenopathy - *Routine Respiratory Exam Present: CTA bilaterally - *Routine Cardiovascular Exam Present: RRR - *Routine Abdominal Exam Present: soft, tenderness (Around laparoscopic surgery site) - *Routine Extremities Exam Absent: cyanosis, clubbing, edema - *Routine Skin Exam Present: warm. Absent: rash - *Routine Neurological Exam Present: alert, oriented X3 Internal Medicine - CN: Reslt - Labs CBC & Chem 7: 07/03/19 10:20 07/03/19 10:20 Labs: Short CBC 07/03/19 Range/Units 10:20 WBC 9.7 (4.8-10.8) K/mm3 Hgb 16.9 (14.1-18.0) g/dL Hct 50.6 (42.0-52.0) % Plt Count 170 (142-424) K/mm3 BMP 07/03/19 10:20 Sodium 139 Potassium 3.5 Chloride 97 L Carbon Dioxide 29 BUN 13 Creatinine 1.20 Glucose 116 H Calcium 9.6 Liver Function 07/03/19 Range/Units 10:20 Total Bilirubin 1.6 H (0.2-1.3) mg/dl AST 43 (17-59) U/L ALT 35 (12-78) U/L Alkaline Phosphatase 62 (38-126) U/L Albumin 4.7 (3.5-5.0) g/dl Urine 07/03/19 07/03/19 Range/Units 10:08 13:30 Urine Color Brown Dk yellow (Yellow) Urine Appearance Sl cloudy Clear (Clear) Urine pH 6.0 6.5 (5.0-8.5) Ur Specific [place] >= 1.030 >= 1.030 (1.005-1.030) Urine Protein 1+ 1+ (Negative) Urine Glucose (UA) Negative Negative (Negative) Assessment and Plan (1) Systolic CHF, chronic Current visit: Yes Status: Acute Category: Medical Code(s): I50.22 - Chronic systolic (congestive) heart failure Currently euvolemic. Hold diuretics overnight. Resume beta-randi, calcium channel randi tonight for blood pressure control. (2) Coronary atherosclerosis of [place] coronary vessel Current visit: Yes Status: Acute Category: Medical Code(s): I25.10 - Atherosclerotic heart disease of [place] coronary artery without angina pectoris Continue beta-blockers and amlodipine in the postsurgical period. (3) Major depression, recurrent, chronic Current visit: Yes Status: Acute Category: Medical Code(s): F33.9 - Major depressive disorder, recurrent, unspecified Continue psychiatric medications. Complicates his care (4) Obesity Current visit: Yes Status: Acute Category: Medical Code(s): E66.9 - Obesity, unspecified Continue medications. Complicating factor noted. (5) Appendicitis Current visit: Yes Status: Acute Qualifiers: Appendicitis type: acute appendicitis Acute appendicitis type: with locali zed peritonitis Appendicitis gangrene presence: unspecified whether gangrene present Appendicitis perforation presence: without perforation Appendicitis abscess presence: without abscess Qualified Code(s): K35.30 - Acute appendicitis with localized peritonitis, without perforation or gangrene Category: Medical Code(s): K37 - Unspecified appendicitis Patient breathing easily. No pain on inspiration. Surgical outcome seems good (6) Left bundle branch block Current visit: No Status: Chronic Category: Medical Code(s): I44.7 - Left bundle-branch block, unspecified Chronic condition.
--- NOTE | 2019-07-03 19:03 | Electrocardiograph Report ---
APPROVED REPORT Exam: Resting ECG HR:72 bpm ECG Measurements Heart Rate 72 AXES UT 200 P 60 QRSd 178 QRS 192 QT 472 T43 QTc 516 <Conclusion> Normal sinus rhythm LBBB Suspect arm lead reversal Abnormal ECG Electronically signed by : Rodriguez Kennedy, 07/03/2019 19:02:49
[2019-07-04 05:59] LABS: Basophils % 0.2 % (0.1-2.0); Eosinophils % 0.1 % (0.1-12.0); Hematocrit 42.6 % (42.0-52.0); Lymphocytes # 0.7 K/mm3 (0.7-4.5); Lymphocytes % 10.7 % (10-50); Mean Corpuscular Volume 86.3 fl (80-94); Mean Platelet Volume 8.4 fl (7.4-10.4); Monocytes # 0.3 K/mm3 (0.1-1.0); Monocytes % 4.5 % (1.7-9.3); Neutrophils # 5.1 K/mm3 (1.8-7.8); Neutrophils % 84.5 % (37.0-80.0); Platelet Count 130 K/mm3 (142-424); Red Blood Count 4.94 M/mm3 (4.60-6.20); Red Cell Distribution Width 13.2 % (11.5-17.5)
[2019-07-04 06:07] LABS: Albumin Level 3.6 g/dl (3.5-5.0); Albumin/Globulin Ratio 1.5 (1.1-1.8); Anion Gap 9.6 mEq/L (5-15); Bilirubin,Total 0.6 mg/dl (0.2-1.3); Calcium 8.9 mg/dl (8.4-10.2); Globulin 2.4 g/dL (1.3-3.2)
[2019-07-04 06:12] LABS: Hemoglobin 14.2 g/dL (14.1-18.0)
--- NOTE | 2019-07-04 09:03 | Progress Note ---
Internal Medicine - PN: Subj *Date: 07/04/19 *Time: 08:45 Interval history: Laying in bed supine this morning. Requiring 3 L nasal oxygen. Ate a big breakfast, complaining of some abdominal discomfort. No nausea or emesis just slight abdominal bloating and pain. Has not had a bowel movement since appendectomy. Alert and oriented. Denies chest pain. States he just does not feel good this morning Exam Vital signs and Labs for Last 24 Hours: Temp Pulse Resp BP Pulse Ox 98.1 F 69 18 139/67 94 L 07/04/19 08:00 07/04/19 08:00 07/04/19 08:00 07/04/19 08:00 07/04/19 08:00 Laboratory Results - last 24 hr 07/03/19 10:08: Urine Color Brown, Urine Appearance Sl cloudy, Urine pH 6.0, Ur Specific [place] >= 1.030, Urine Protein 1+, Urine Glucose (UA) Negative, Urine Ketones Negative, Urine Blood Trace-l, Urine Nitrate Positive, Urine Bilirubin Negative, Urine Urobilinogen 1.0, Ur Leukocyte Esterase Negative, Urine RBC 5- 10, Urine WBC Occasional, Ur Squamous Epith Cells 20-50, Amorphous Sediment 1+, Urine Bacteria None 07/03/19 10:20: WBC 9.7, RBC 5.98, Hgb 16.9, Hct 50.6, MCV 84.6, MCH 28.3, MCHC 33.5, RDW 13.4, Plt Count 170, MPV 7.9, Neut % (Auto) 77.5, Lymph % (Auto) 14.5, [place] % (Auto) 5.2, Eos % (Auto) 2.5, Baso % (Auto) 0.3, Neut # (Auto) 7.5, Lymph # (Auto) 1.4, [place] # (Auto) 0.5, Eos # (Auto) 0.2, Baso # (Auto) 0.0 07/03/19 10:20: Sodium 139, Potassium 3.5, Chloride 97 L, Carbon Dioxide 29, Anion Gap 16.5 H, BUN 13, Creatinine 1.20, Estimated Creat Clear 121, Estimated GFR 62, Est GFR ( Amer) 75, Glucose 116 H, Calcium 9.6, Total Bilirubin 1.6 H, AST 43, ALT 35, Alkaline Phosphatase 62, Total Protein 7.7, Albumin 4.7, Globulin 3.0, Albumin/Globulin Ratio 1.6, Amylase 76, Lipase 96 07/03/19 13:30: Urine Color Dk yellow, Urine Appearance Clear, Urine pH 6.5, Ur Specific [place] >= 1.030, Urine Protein 1+, Urine Glucose (UA) Negative, Urine Ketones Trace, Urine Blood Negative, Urine Nitrate Positive, Urine Bilirubin Negative, Urine Urobilinogen 1.0, Ur Leukocyte Esterase Negative, Urine RBC None, Urine WBC 3-5, Ur Squamous Epith Cells Occasional, Urine Bacteria 1+ 07/03/19 16:21: POC Glucose 102 07/03/19 21:10: POC Glucose 182 H 07/04/19 05:30: WBC 6.0 D, RBC 4.94, Hgb 14.2 D, Hct 42.6, MCV 86.3, MCH 28.5, MCHC 33.0, RDW 13.2, Plt Count 130 L, MPV 8.4, Neut % (Auto) 84.5 H, Lymph % (Auto) 10.7, [place] % (Auto) 4.5, Eos % (Auto) 0.1, Baso % (Auto) 0.2, Neut # (Auto) 5.1, Lymph # (Auto) 0.7, [place] # (Auto) 0.3, Eos # (Auto) 0.0, Baso # (Auto) 0.0 07/04/19 05:30: Sodium 138, Potassium 3.6, Chloride 102, Carbon Dioxide 30, Anion Gap 9.6, BUN 11, Creatinine 0.90 D, Estimated Creat Clear 159, Estimated GFR 86, Est GFR ( Amer) 105 D, Glucose 151 H D, Calcium 8.9, Total Bilirubin 0.6, AST 29 D, ALT 24 D, Alkaline Phosphatase 55, Total Protein 6.0 L, Albumin 3.6 D, Globulin 2.4, Albumin/Globulin Ratio 1.5 07/04/19 05:36: POC Glucose 154 H I & O for Last 24 hours: Intake & Output 07/01/19 07/02/19 07/03/19 07/04/19 23:59 23:59 23:59 23:59 Intake Total 2105 / 2105 1691 / 1691 Output Total 650 / 650 Balance 2105 1041 / 1041 Weight 127.006 kg 127 kg Narrative: Pleasant obese male who appears stated age laying supine in bed - *Routine HEENT Exam Head: Present: normocephalic Eye: Present: EOMI, PERRL ENT: Present: mucous membranes moist - *Routine Neck Exam Present: supple. Absent: lymphadenopathy - *Routine Respiratory Exam Present: CTA bilaterally - *Routine Cardiovascular Exam Present: RRR - *Routine Abdominal Exam Present: soft, distended, tenderness (Around laparoscopic surgery site), hypoactive bowel sounds - *Routine Extremities Exam Absent: cyanosis, clubbing, edema - *Routine Skin Exam Present: warm. Absent: rash - *Routine Neurological Exam Present: alert, oriented X3 Assessment and Plan (1) Systolic CHF, chronic Current visit: Yes Status: Acute Category: Medical Code(s): I50.22 - Chronic systolic (congestive) heart failure (2) Coronary atherosclerosis of [place] coronary vessel Current visit: Yes Status: Acute Category: Medical Code(s): I25.10 - Atherosclerotic heart disease of [place] coronary artery without angina pectoris (3) Major depression, recurrent, chronic Current visit: Yes Status: Acute Category: Medical Code(s): F33.9 - Major depressive disorder, recurrent, unspecified (4) Obesity Current visit: Yes Status: Acute Category: Medical Code(s): E66.9 - Obesity, unspecified (5) Appendicitis Current visit: Yes Status: Acute Qualifiers: Appendicitis type: acute appendicitis Acute appendicitis type: with localized peritonitis Appendicitis gangrene presence: unspecified whether gangrene present Appendicitis perforation presence: without perforation Appendicitis abscess presence: without abscess Qualified Code(s): K35.30 - Acute appendicitis with localized peritonitis, without perforation or gangrene Category: Medical Code(s): K37 - Unspecified appendicitis (6) Left bundle branch block Current visit: No Status: Chronic Category: Medical Code(s): I44.7 - Left bundle-branch block, unspecified - Assessment and plan all Dx Assessment and Plan for all problems:: 58-year-old male with multiple comorbidities. Status post laparoscopic appendectomy. Continues to require oxygen today. Desats easily with ambulation. Recommend advancing pulmonary toilet with incentive spirometry. Continue oxygen with goal saturation greater than 92% while awake. Abdominal distention and soreness suspected due to large breakfast. Will defer dietary changes to surgery. -They recommended Toradol for pain, and anti-inflammatory benefit Continue blood pressure medication as prescribed. Would recommend resuming his diuretic. Appears to have some urinary retention for which a As[place] catheter was placed last night. Will discontinue Sarah today to promote voiding on his own and reduce risk for catheter related UTI. Monitor for residuals, may require in and out cathing. Initiate tamsulosin for retention. Appreciate the opportunity to consult on patient, will continue to follow along.
--- NOTE | 2019-07-04 10:08 | Progress Note ---
[facility] Anesthesia Record Part II Discharge Time: 15:05 Destination: Postop PACU nurse assessment reviewed?: Yes Patient Condition:: Good Anesthesia Complications:: None Swallowing reflex intact?: Yes Cyanosis?: No Blood Pressure: 111/63 Pulse Rate: 80 Temperature: 97.7 F Mental Status: Alert & Oriented Pain level:: 0 Nausea and/or vomitting:: None Intake, IV Amount: 0 Comments:: RR 14, O2sat 92% on 3 L NC
--- NOTE | 2019-07-04 10:59 | Progress Note ---
Subjective Narrative: Patient states that he is "not doing too good". He states specifically that he has abdominal soreness when he had tried to get up. He has tolerated diet without any difficulty whatsoever. Patient is still on oxygen as he had dropped his saturations on room air. He has not had any fevers overnight. White blood cell count is normal this morning. Exam Vital signs and Labs for Last 24 Hours: Temp Pulse Resp BP Pulse Ox 97.7 F 80 18 111/63 94 L 07/04/19 10:07 07/04/19 10:07 07/04/19 08:00 07/04/19 10:07 07/04/19 08:00 Laboratory Results - last 24 hr 07/03/19 13:30: Urine Color Dk yellow, Urine Appearance Clear, Urine pH 6.5, Ur Specific [place] >= 1.030, Urine Protein 1+, Urine Glucose (UA) Negative, Urine Ketones Trace, Urine Blood Negative, Urine Nitrate Positive, Urine Bilirubin Negative, Urine Urobilinogen 1.0, Ur Leukocyte Esterase Negative, Urine RBC None, Urine WBC 3-5, Ur Squamous Epith Cells Occasional, Urine Bacteria 1+ 07/03/19 16:21: POC Glucose 102 07/03/19 21:10: POC Glucose 182 H 07/04/19 05:30: WBC 6.0 D, RBC 4.94, Hgb 14.2 D, Hct 42.6, MCV 86.3, MCH 28.5, MCHC 33.0, RDW 13.2, Plt Count 130 L, MPV 8.4, Neut % (Auto) 84.5 H, Lymph % (Auto) 10.7, [place] % (Auto) 4.5, Eos % (Auto) 0.1, Baso % (Auto) 0.2, Neut # (Auto) 5.1, Lymph # (Auto) 0.7, [place] # (Auto) 0.3, Eos # (Auto) 0.0, Baso # (Auto) 0.0 07/04/19 05:30: Sodium 138, Potassium 3.6, Chloride 102, Carbon Dioxide 30, Anion Gap 9.6, BUN 11, Creatinine 0.90 D, Estimated Creat Clear 159, Estimated GFR 86, Est GFR ( Amer) 105 D, Glucose 151 H D, Calcium 8.9, Total Bilirubin 0.6, AST 29 D, ALT 24 D, Alkaline Phosphatase 55, Total Protein 6.0 L, Albumin 3.6 D, Globulin 2.4, Albumin/Globulin Ratio 1.5 07/04/19 05:36: POC Glucose 154 H I & O for Last 24 hours: Intake & Output 07/01/19 07/02/19 07/03/19 07/04/19 11:59 11:59 11:59 11:59 Intake Total 3797 / 3797 Output Total 650 / 650 Balance 3147 / 3147 Weight 285 lb 279 lb 15.793 oz - *Routine Abdominal Exam Comments: He has abdominal soreness. He has some tenderness at the incisional sites. Progress Note: A&P (1) Systolic CHF, chronic Status: Acute Current Visit: Yes (2) Coronary atherosclerosis of [place] coronary vessel Status: Acute Current Visit: Yes (3) Major depression, recurrent, chronic Status: Acute Current Visit: Yes (4) Obesity Status: Acute Current Visit: Yes (5) Appendicitis Status: Acute Current Visit: Yes (6) Left bundle branch block Status: Chronic Current Visit: No Assessment and Plan for All Diagnoses:: Patient remains on supplemental oxygen. He complains of abdominal pain and soreness. I will add Toradol scheduled as an anti-inflammatory. Continue medical management for medical issues. Appreciate medical consult.
--- NOTE | 2019-07-05 07:10 | Progress Note ---
Subjective Narrative: Patient complains of abdominal soreness. Exam Vital signs and Labs for Last 24 Hours: Temp Pulse Resp BP Pulse Ox 98.6 F 77 20 107/48 L 95 07/05/19 04:00 07/05/19 04:00 07/05/19 04:00 07/05/19 04:00 07/05/19 04:00 Laboratory Results - last 24 hr 07/04/19 11:06: POC Glucose 155 H 07/04/19 16:45: POC Glucose 91 07/04/19 20:42: POC Glucose 99 07/05/19 05:27: POC Glucose 89 I & O for Last 24 hours: Intake & Output 07/02/19 07/03/19 07/04/19 07/05/19 11:59 11:59 11:59 11:59 Intake Total 3797 / 3797 480 / 480 Output Total 650 / 650 650 / 650 Balance 3147 / 3147 -170 / -170 Weight 285 lb 279 lb 15.793 oz 288 lb 9.361 oz - *Routine Abdominal Exam Present: soft Progress Note: A&P (1) Systolic CHF, chronic Status: Acute Current Visit: Yes (2) Coronary atherosclerosis of [place] coronary vessel Status: Acute Current Visit: Yes (3) Major depression, recurrent, chronic Status: Acute Current Visit: Yes (4) Obesity Status: Acute Current Visit: Yes (5) Appendicitis Status: Acute Current Visit: Yes (6) Left bundle branch block Status: Chronic Current Visit: No Assessment and Plan for All Diagnoses:: Still has supplemental oxygen. If oxygen saturations are reasonable we will likely discharge home today.
--- NOTE | 2019-07-05 07:20 | Progress Note ---
Internal Medicine - PN: Subj *Date: 07/05/19 *Time: 07:18 Interval history: Patient up in a chair, reports that he feels somewhat better. Has been able to go to the bathroom with minimal assistance. Pain levels are improving. Patient did not have oxygen on for about 30 to 45 minutes and room air saturation 83%. Patient is able to pull 1500 mL's on incentive spirometer. Exam Vital signs and Labs for Last 24 Hours: Temp Pulse Resp BP Pulse Ox 98.6 F 77 20 107/48 L 95 07/05/19 04:00 07/05/19 04:00 07/05/19 04:00 07/05/19 04:00 07/05/19 04:00 Laboratory Results - last 24 hr 07/04/19 11:06: POC Glucose 155 H 07/04/19 16:45: POC Glucose 91 07/04/19 20:42: POC Glucose 99 07/05/19 05:27: POC Glucose 89 I & O for Last 24 hours: Intake & Output 07/02/19 07/03/19 07/04/19 07/05/19 11:59 11:59 11:59 11:59 Intake Total 3797 / 3797 480 / 480 Output Total 650 / 650 650 / 650 Balance 3147 / 3147 -170 / -170 Weight 285 lb 279 lb 15.793 oz 288 lb 9.361 oz Narrative: Patient is awake, alert. In chair. No focal neurologic deficits. Oropharynx clear. No JVD. Lungs have good air movement. Minimal rhonchi that clear with a deep breath. No crackles today. Heart rate regular. Abdominal wounds from surgery look great. Minimal tenderness. No edema or clubbing. Moving all extremities well. Assessment and Plan (1) Systolic CHF, chronic Current visit: Yes Status: Acute Category: Medical Code(s): I50.22 - Chronic systolic (congestive) heart failure (2) Coronary atherosclerosis of [place] coronary vessel Current visit: Yes Status: Acute Category: Medical Code(s): I25.10 - Atherosclerotic heart disease of [place] coronary artery without angina pectoris (3) Major depression, recurrent, chronic Current visit: Yes Status: Acute Category: Medical Code(s): F33.9 - Major depressive disorder, recurrent, unspecified (4) Obesity Current visit: Yes Status: Acute Category: Medical Code(s): E66.9 - Obesity, unspecified (5) Appendicitis Current visit: Yes Status: Acute Qualifiers: Appendicitis type: acute appendicitis Acute appendicitis type: with localized peritonitis Appendicitis gangrene presence: unspecified whether gangrene present Appendicitis perforation presence: without perforation Appendicitis abscess presence: without abscess Qualified Code(s): K35.30 - Acute appendicitis with localized peritonitis, without perforation or gangrene Category: Medical Code(s): K37 - Unspecified appendicitis (6) Left bundle branch block Current visit: No Status: Chronic Category: Medical Code(s): I44.7 - Left bundle-branch block, unspecified (7) Right middle lobe pneumonia Current visit: Yes Status: Acute Category: Medical Code(s): J18.9 - Pneumonia, unspecified organism Postoperatively patient is doing well. Right middle lobe pneumonia is not a hospital-acquired infection. Patient reports that he was coughing and had some low-grade fevers a couple of days before admission. Appearance on chest x-ray is not consistent with hospital or surgical acquired pneumonia. Clinically patient is better. Await cultures. Check blood counts tomorrow. I think his oxygen requirement will diminish over the next 24 hours.
[2019-07-06 06:50] LABS: Basophils % 0.4 % (0.1-2.0); Eosinophils # 0.2 K/mm3 (0.0-0.4); Eosinophils % 3.3 % (0.1-12.0); Lymphocytes # 1.9 K/mm3 (0.7-4.5); Mean Corpuscular HGB Conc 32.4 g/dL (31.8-35.4); Mean Corpuscular Volume 87.1 fl (80-94); Mean Platelet Volume 8.5 fl (7.4-10.4); Monocytes # 0.5 K/mm3 (0.1-1.0); Monocytes % 7.2 % (1.7-9.3); Neutrophils # 4.3 K/mm3 (1.8-7.8); Neutrophils % 62.2 % (37.0-80.0); Platelet Count 147 K/mm3 (142-424); Red Blood Count 4.58 M/mm3 (4.60-6.20); Red Cell Distribution Width 13.4 % (11.5-17.5); White Blood Count 6.9 K/mm3 (4.8-10.8)
[2019-07-06 06:54] LABS: Anion Gap 10.2 mEq/L (5-15); Calcium 8.2 mg/dl (8.4-10.2)
--- NOTE | 2019-07-06 06:59 | Progress Note ---
Subjective Patient reports: no new complaints Narrative: He states that he was placed "back on oxygen last night". He states that he "dropped into the 80s". Documentation of a saturation of 88 is noted. He is currently not short of breath and states that he "feels okay overall". Exam Vital signs and Labs for Last 24 Hours: Temp Pulse Resp BP Pulse Ox 97.8 F 68 16 144/71 H 94 L 07/06/19 04:00 07/06/19 04:00 07/06/19 04:00 07/06/19 04:00 07/06/19 04:00 Laboratory Results - last 24 hr 07/05/19 11:01: POC Glucose 98 07/05/19 16:41: POC Glucose 85 07/05/19 20:16: POC Glucose 124 H 07/06/19 05:44: POC Glucose 83 I & O for Last 24 hours: Intake & Output 07/03/19 07/04/19 07/05/19 07/06/19 11:59 11:59 11:59 11:59 Intake Total 3797 / 3797 1040 / 1040 1440 / 1440 Output Total 650 / 650 650 / 650 900 / 900 Balance 3147 / 3147 390 / 390 540 / 540 Weight 285 lb 279 lb 15.793 oz 288 lb 9.361 oz 289 lb 10.998 oz - Constitutional no acute distress - *Routine Respiratory Exam Absent: respiratory distress - *Routine Cardiovascular Exam Present: RRR - *Routine Abdominal Exam Present: soft Progress Note: A&P (1) Systolic CHF, chronic Status: Acute Current Visit: Yes (2) Coronary atherosclerosis of [place] coronary vessel Status: Acute Current Visit: Yes (3) Major depression, recurrent, chronic Status: Acute Current Visit: Yes (4) Obesity Status: Acute Current Visit: Yes (5) Appendicitis Status: Acute Assessment and plan: Overall, doing fairly well status post laparoscopic appendectomy. Discharge home when cleared/stable from a medical standpoint (pneumonia) Current Visit: Yes (6) Left bundle branch block Status: Chronic Current Visit: No (7) Right middle lobe pneumonia Status: Acute Assessment and plan: Ongoing treatment as per primary service Current Visit: Yes
--- NOTE | 2019-07-06 08:21 | Discharge Summary ---
General - General Admission date:: 07/03/19 Discharge date: 07/06/19 Objective Vital signs: Temp Pulse Resp BP Pulse Ox 97.8 F 68 16 144/71 H 94 L 07/06/19 04:00 07/06/19 04:00 07/06/19 04:00 07/06/19 04:00 07/06/19 04:00 Results Labs on day of discharge: Labs from last 24 hours 07/06/19 07/06/19 07/06/19 06:08 06:08 05:44 WBC 6.9 RBC 4.58 L Hgb 13.0 L Hct 40.0 L MCV 87.1 MCH 28.3 MCHC 32.4 RDW 13.4 Plt Count 147 MPV 8.5 Neut % (Auto) 62.2 Lymph % (Auto) 27.0 [place] % (Auto) 7.2 Eos % (Auto) 3.3 Baso % (Auto) 0.4 Neut # (Auto) 4.3 Lymph # (Auto) 1.9 [place] # (Auto) 0.5 Eos # (Auto) 0.2 Baso # (Auto) 0.0 Sodium 142 Potassium 3.2 L Chloride 102 Carbon Dioxide 33 H Anion Gap 10.2 BUN 14 D Creatinine 1.20 D Estimated Creat Clear 123 Estimated GFR 62 Est GFR ( Amer) 75 D Glucose 82 POC Glucose 83 Calcium 8.2 L 07/05/19 07/05/19 07/05/19 20:16 16:41 11:01 WBC RBC Hgb Hct MCV MCH MCHC RDW Plt Count MPV Neut % (Auto) Lymph % (Auto) [place] % (Auto) Eos % (Auto) Baso % (Auto) Neut # (Auto) Lymph # (Auto) [place] # (Auto) Eos # (Auto) Baso # (Auto) Sodium Potassium Chloride Carbon Dioxide Anion Gap BUN Creatinine Estimated Creat Clear Estimated GFR Est GFR ( Amer) Glucose POC Glucose 124 H 85 98 Calcium DS: Diagnosis - Discharge Diagnosis (1) Systolic CHF, chronic Status: Acute (2) Coronary atherosclerosis of [place] coronary vessel Status: Acute (3) Major depression, recurrent, chronic Status: Acute (4) Obesity Status: Acute (5) Appendicitis Status: Acute (6) Left bundle branch block Status: Chronic (7) Right middle lobe pneumonia Status: Acute Discharge Plan - Patient Discharge Instructions Patient Instructions: DI for Pneumonia -- Adult, DI for an Appendectomy, DI for Surgical Site Infection, Appendectomy -- Laparoscopic Surgery - Follow up Plan Follow up with: Ministerio Lobato MD [Staff Physician] - (1-2 weeks) Christina Hansen APRN [Primary Care Provider] - Home Medications: Home Medications Medication Instructions Recorded Confirmed Type bupropion HCl 150 mg tablet,12 hr 150 mg PO BID 05/18/17 07/04/19 History sustained-release trazodone 150 mg tablet 150 mg PO HS tab 05/18/17 07/04/19 History Fluticasone/Vilanterol [Breo 1 each IH DAILY 06/01/18 07/04/19 History Ellipta 100-25 Mcg INH] amlodipine 5 mg tablet 5 mg PO DAILY #90 tab 03/08/19 07/04/19 Rx ranolazine 500 mg tablet,extended 500 mg PO BID #180 tab 03/08/19 07/04/19 Rx release,12 hr bisoprolol fumarate 10 mg tablet 10 mg PO DAILY #90 tab 04/28/19 07/04/19 Rx lovastatin 20 mg tablet 40 mg PO DAILY tab 05/16/19 07/04/19 History quetiapine 300 mg tablet 150 mg PO HS tab 05/16/19 07/04/19 History sertraline 100 mg tablet 100 mg PO DAILY tab 05/16/19 07/04/19 History Furosemide [Furosemide 80mg Tab] 80 mg PO DAILY 07/03/19 07/04/19 History Mirabegron [Myrbetriq] 25 mg PO DAILY 07/03/19 07/04/19 History Omeprazole [Omeprazole 40mg 40 mg PO DAILY 07/03/19 07/04/19 History Capsule] Spironolactone [Aldactone 100mg 100 mg PO DAILY 07/03/19 07/04/19 History Tab] Prescriptions/Medication Reconciliation: No Action bupropion HCl 150 mg tablet,12 hr sustained-release 150 mg PO BID bisoprolol fumarate 10 mg tablet 10 mg PO DAILY #90 tab lovastatin 20 mg tablet 40 mg PO DAILY tab trazodone 150 mg tablet 150 mg PO HS tab amlodipine 5 mg tablet 5 mg PO DAILY #90 tab ranolazine 500 mg tablet,extended release,12 hr 500 mg PO BID #180 tab quetiapine 300 mg tablet 150 mg PO HS tab sertraline 100 mg tablet 100 mg PO DAILY tab Fluticasone/Vilanterol [Breo Ellipta 100-25 Mcg INH] 1 each IH DAILY Omeprazole [Omeprazole 40mg Capsule] 40 mg PO DAILY Furosemide [Furosemide 80mg Tab] 80 mg PO DAILY Spironolactone [Aldactone 100mg Tab] 100 mg PO DAILY Mirabegron [Myrbetriq] 25 mg PO DAILY - Problem Reconciliation Problems Reviewed?: Yes
--- NOTE | 2019-07-06 10:20 | Progress Note ---
Internal Medicine - PN: Subj *Date: 07/06/19 *Time: 08:30 Interval history: Patient tolerating regular diet. Has had several loose stools since transitioning antibiotics. Remains afebrile. Still required some oxygen overnight as he dropped to 88% however nothing below this documented. Patient otherwise hemodynamically stable. Denies chest pain, nausea, vomiting. No rash. Abdominal pain improving. Exam Vital signs and Labs for Last 24 Hours: Temp Pulse Resp BP Pulse Ox 98.6 F 73 22 118/70 89 L 07/06/19 08:00 07/06/19 08:00 07/06/19 08:00 07/06/19 08:00 07/06/19 09:35 Laboratory Results - last 24 hr 07/05/19 11:01: POC Glucose 98 07/05/19 16:41: POC Glucose 85 07/05/19 20:16: POC Glucose 124 H 07/06/19 05:44: POC Glucose 83 07/06/19 06:08: WBC 6.9, RBC 4.58 L, Hgb 13.0 L, Hct 40.0 L, MCV 87.1, MCH 28.3, MCHC 32.4, RDW 13.4, Plt Count 147, MPV 8.5, Neut % (Auto) 62.2, Lymph % (Auto) 27.0, [place] % (Auto) 7.2, Eos % (Auto) 3.3, Baso % (Auto) 0.4, Neut # (Auto) 4.3, Lymph # (Auto) 1.9, [place] # (Auto) 0.5, Eos # (Auto) 0.2, Baso # (Auto) 0.0 07/06/19 06:08: Sodium 142, Potassium 3.2 L, Chloride 102, Carbon Dioxide 33 H, Anion Gap 10.2, BUN 14 D, Creatinine 1.20 D, Estimated Creat Clear 123, Estimated GFR 62, Est GFR ( Amer) 75 D, Glucose 82, Calcium 8.2 L I & O for Last 24 hours: Intake & Output 07/03/19 07/04/19 07/05/19 07/06/19 23:59 23:59 23:59 23:59 Intake Total 2105 / 2105 2171 / 2171 1880 / 1940 480 / 480 Output Total 1100 / 1100 1100 / 1100 Balance 2106 / 2106 1071 / 1071 780 / 840 480 / 480 Weight 127.006 kg 127 kg 131 kg 131.4 kg Narrative: Patient is awake, alert. Laying on his left side in bed. No focal neurologic deficits. Oropharynx clear. No JVD. Lungs have good air movement. Minimal rhonchi that clear with a deep breath. No crackles Heart rate regular. Abdominal wounds from surgery look good, CDI. Minimal tenderness. Active bowel sounds No edema or clubbing. Moving all extremities well. Assessment and Plan (1) Systolic CHF, chronic Current visit: Yes Status: Acute Category: Medical Code(s): I50.22 - Chronic systolic (congestive) heart failure (2) Coronary atherosclerosis of [place] coronary vessel Current visit: Yes Status: Acute Category: Medical Code(s): I25.10 - Atherosclerotic heart disease of [place] coronary artery without angina pectoris (3) Major depression, recurrent, chronic Current visit: Yes Status: Acute Category: Medical Code(s): F33.9 - Major depressive disorder, recurrent, unspecified (4) Obesity Current visit: Yes Status: Acute Category: Medical Code(s): E66.9 - Obesity, unspecified (5) Appendicitis Current visit: Yes Status: Acute Qualifiers: Appendicitis type: acute appendicitis Acute appendicitis type: with localized peritonitis Appendicitis gangrene presence: unspecified whether gangrene present Appendicitis perforation presence: without perforation Appendicitis abscess presence: without abscess Qualified Code(s): K35.30 - Acute appendicitis with localized peritonitis, without perforation or gangrene Category: Medical Code(s): K37 - Unspecified appendicitis (6) Left bundle branch block Current visit: No Status: Chronic Category: Medical Code(s): I44.7 - Left bundle-branch block, unspecified (7) Right middle lobe pneumonia Current visit: Yes Status: Acute Category: Medical Code(s): J18.9 - Pneumonia, unspecified organism - Assessment and plan all Dx Assessment and Plan for all problems:: From medical standpoint, would recommend discontinuing oxygen today as he has not had consistent less than 88% saturation. Desatted at night which I suspect may be related more to sleep apnea than his pneumonia. We will plan for close follow-up. Would continue regular home medications and finish out antibiotics including last dose of azithromycin 500 mg today to complete that course and switching to oral Augmentin 875 mg twice a day for the next 3 days to complete a total of 7 days of beta-lactam therapy for both abdominal and intrathoracic pathology. As he is tolerating good p.o. intake, ambulating to bathroom, and has no further acute needs, medically we feel he is stable for discharge home with close follow-up. We will plan to see him in clinic early next week.
--- NOTE | 2019-07-06 11:32 | Discharge Summary ---
General - General Admission date:: 07/03/19 Discharge date: 07/06/19 HPI HPI: Patient is a 58-year-old male. He states that he has had some pain in the right lower abdomen and right pelvic area for a couple of days. It is been relatively persistent. He describes some subjective fevers. He presented to the emergency department where he was seen and evaluated. Work-up included CBC which was within normal limits. He had a CT scan without any contrast which revealed findings of prominence of the appendix with possible haziness. This was concerning for uncomplicated appendicitis. Surgery was contacted. Hospital Course Hospital Course: The patient underwent laparoscopic appendectomy. Please see operative report for detail. He convalesced fairly well but did have moderate FiO2 requirement. Medical consultation and follow-up chest x-rays confirmed a right middle lobe pneumonia. His pneumonia was most consistent with a "community-acquired pneumonia". He completed a course of azithromycin and convalesced well. He remained afebrile thereafter and was deemed appropriate for discharge home on the afternoon of July 06, 2019. Per medical consultation recommendations he is to complete a 3-day course of Augmentin. Condition at discharge at discharge the patient was afebrile with stable and normal vital signs. He was ambulating and tolerating advancement of his diet. He was off supplemental oxygen and maintaining saturations in the high 80s to mid 90s. Objective Vital signs: Temp Pulse Resp BP Pulse Ox 98.6 F 73 22 118/70 89 L 07/06/19 08:00 07/06/19 08:00 07/06/19 08:00 07/06/19 08:00 07/06/19 09:35 no acute distress - *Routine HEENT Exam Head: Present: normocephalic, atraumatic - *Routine Neck Exam Present: full ROM - Routine Chest/Breast/Axilla Exam Chest wall: Absent: tenderness - *Routine Respiratory Exam Absent: respiratory distress - *Routine Cardiovascular Exam Present: RRR - *Routine Abdominal Exam Present: soft - *Routine Extremities Exam Present: full ROM - Routine Back/Spine/Pelvis Exam Back/Spine: Present: full ROM - *Routine Skin Exam Absent: cyanosis, erythema - *Routine Neurological Exam Present: alert, oriented X3 - Routine Psychiatric Exam Present: normal affect Results Labs on day of discharge: Labs from last 24 hours 07/06/19 07/06/19 07/06/19 11:15 06:08 06:08 WBC 6.9 RBC 4.58 L Hgb 13.0 L Hct 40.0 L MCV 87.1 MCH 28.3 MCHC 32.4 RDW 13.4 Plt Count 147 MPV 8.5 Neut % (Auto) 62.2 Lymph % (Auto) 27.0 [place] % (Auto) 7.2 Eos % (Auto) 3.3 Baso % (Auto) 0.4 Neut # (Auto) 4.3 Lymph # (Auto) 1.9 [place] # (Auto) 0.5 Eos # (Auto) 0.2 Baso # (Auto) 0.0 Sodium 142 Potassium 3.2 L Chloride 102 Carbon Dioxide 33 H Anion Gap 10.2 BUN 14 D Creatinine 1.20 D Estimated Creat Clear 123 Estimated GFR 62 Est GFR ( Amer) 75 D Glucose 82 POC Glucose 120 H Calcium 8.2 L 07/06/19 07/05/19 07/05/19 05:44 20:16 16:41 WBC RBC Hgb Hct MCV MCH MCHC RDW Plt Count MPV Neut % (Auto) Lymph % (Auto) [place] % (Auto) Eos % (Auto) Baso % (Auto) Neut # (Auto) Lymph # (Auto) [place] # (Auto) Eos # (Auto) Baso # (Auto) Sodium Potassium Chloride Carbon Dioxide Anion Gap BUN Creatinine Estimated Creat Clear Estimated GFR Est GFR ( Amer) Glucose POC Glucose 83 124 H 85 Calcium DS: Diagnosis - Discharge Diagnosis (1) Systolic CHF, chronic Status: Acute (2) Coronary atherosclerosis of [place] coronary vessel Status: Acute (3) Major depression, recurrent, chronic Status: Acute (4) Obesity Status: Acute (5) Appendicitis Status: Acute (6) Left bundle branch block Status: Chronic (7) Right middle lobe pneumonia Status: Acute Discharge Plan - Patient Discharge Instructions ACTIVITY: No heavy lifting DIET: advance to your usual diet Patient Instructions: DI for Pneumonia -- Adult, DI for an Appendectomy, DI for Surgical Site Infection, Appendectomy -- Laparoscopic Surgery - Follow up Plan Follow up with: Ministerio Lobato MD [Staff Physician] - (1-2 weeks) Christina Hansen APRN [Primary Care Provider] - (next Wednesday or Wednesday) Disposition: Home, Self-Senior Care Medications: Home Medications Medication Instructions Recorded Confirmed Type bupropion HCl 150 mg tablet,12 hr 150 mg PO BID 05/18/17 07/04/19 History sustained-release trazodone 150 mg tablet 150 mg PO HS tab 05/18/17 07/04/19 History Fluticasone/Vilanterol [Breo 1 each IH DAILY 06/01/18 07/04/19 History Ellipta 100-25 Mcg INH] amlodipine 5 mg tablet 5 mg PO DAILY #90 tab 03/08/19 07/04/19 Rx ranolazine 500 mg tablet,extended 500 mg PO BID #180 tab 03/08/19 07/04/19 Rx release,12 hr bisoprolol fumarate 10 mg tablet 10 mg PO DAILY #90 tab 04/28/19 07/04/19 Rx lovastatin 20 mg tablet 40 mg PO DAILY tab 05/16/19 07/04/19 History quetiapine 300 mg tablet 150 mg PO HS tab 05/16/19 07/04/19 History sertraline 100 mg tablet 100 mg PO DAILY tab 05/16/19 07/04/19 History Furosemide [Furosemide 80mg Tab] 80 mg PO DAILY 07/03/19 07/04/19 History Mirabegron [Myrbetriq] 25 mg PO DAILY 07/03/19 07/04/19 History Omeprazole [Omeprazole 40mg 40 mg PO DAILY 07/03/19 07/04/19 History Capsule] Spironolactone [Aldactone 100mg 100 mg PO DAILY 07/03/19 07/04/19 History Tab] Amoxicillin/Potassium Clav 1 tab PO Q12H #6 tab 07/06/19 Rx [Augmentin 875-125 Tablet] Prescriptions/Medication Reconciliation: New Amoxicillin/Potassium Clav [Augmentin 875-125 Tablet] 1 tab PO Q12H #6 tab Continued bupropion HCl 150 mg tablet,12 hr sustained-release 150 mg PO BID bisoprolol fumarate 10 mg tablet 10 mg PO DAILY #90 tab lovastatin 20 mg tablet 40 mg PO DAILY tab trazodone 150 mg tablet 150 mg PO HS tab amlodipine 5 mg tablet 5 mg PO DAILY #90 tab ranolazine 500 mg tablet,extended release,12 hr 500 mg PO BID #180 tab quetiapine 300 mg tablet 150 mg PO HS tab sertraline 100 mg tablet 100 mg PO DAILY tab Fluticasone/Vilanterol [Breo Ellipta 100-25 Mcg INH] 1 each IH DAILY Omeprazole [Omeprazole 40mg Capsule] 40 mg PO DAILY Furosemide [Furosemide 80mg Tab] 80 mg PO DAILY Spironolactone [Aldactone 100mg Tab] 100 mg PO DAILY Mirabegron [Myrbetriq] 25 mg PO DAILY - Problem Reconciliation Problems Reviewed?: Yes
== END 2019-07-06 12:48 | disposition home or self-care (01) ==
LOC: ER 09:54 → SDC 12:59 → 2ND 14:13 → INTOOBSV 14:13 → 2ND 14:41
PROVIDERS: ADMIT Surgery; ATTEND Surgery
CPT/HCPCS: 36415; 71010; 71045; 74176; 80048; 80053; 81001; 82150; 82962; 83690; 85025; 87040; 93005; 94761; 96365; 96374; 96375; 99284; G0378; J0456; J2405; J2543; J2710

== ENCOUNTER → 2019-07-17 10:09 | Outpatient (CLI) | payer MEDICARE, SELFPAY ==
--- NOTE | 2019-07-17 10:12 | XR_ITS ---
PROCEDURE: XR CHEST 2V CLINICAL HISTORY: PNEUMONIA RML Follow-up pneumonia right middle lobe COMPARISON: CXR2V XR chest 2V from 06/28/2017 CXR2V XR chest 2V from 07/01/2017 XR CHEST PORTABLE from 07/04/2019 FINDINGS: The cardiomediastinal silhouette and pulmonary vascularity are within normal limits. Patchy right middle lobe infiltrate once again noted but moderately improved No acute bony abnormalities. IMPRESSION: Persistent but improving right middle lobe infiltrate Dictated by: Dagoberto Contreras MD 07/17/2019 12:09 Electronically signed by Dagoberto Contreras MD in [place] 07/17/2019 12:09
== END ==
PROVIDERS: PCP Nurse Practitioner Family; Visit Provider Nurse Practitioner Family
DX: J18.9 Pneumonia, unspecified organism (principal)
CPT/HCPCS: 71046

== ENCOUNTER → 2019-08-22 10:43 | Outpatient (CLI) | payer MEDICARE, SELFPAY ==
[2019-08-22 11:46] LABS: Blood Urea Nitrogen 10 mg/dl (9-20); Estimated Glomerular Filt Rate 76 ml/min (>60); GFR (African American) 92 ML/MIN (>60)
== END ==
PROVIDERS: Visit Provider Surgery
DX: Z90.49 Acquired absence of other specified parts of digestive tract (principal)
CPT/HCPCS: 36415; 82565; 84520

== ENCOUNTER → 2019-08-24 09:36 | Outpatient (CLI) | payer MEDICARE, SELFPAY ==
--- NOTE | 2019-08-24 09:41 | CT_ITS ---
PROCEDURE: CT ABDOMEN PELVIS W CON CLINICAL INDICATION: lower quad pain Lower and mid abdominal pain COMPARISON: CT ANGIO ABDOMEN from 05/09/2019 CT ABDOMEN PELVIS WO CON from 07/03/2019 TECHNIQUE: IV Contrast: 75ML OPTIRAY 350 Oral Contrast 20ml Gastroview Axial images obtained with sagittal and coronal reformats. All CT scans at the facility use one or more dose reduction, viz: automated exposure control, ma/kV adjustment per patient size (including targeted exams where dose is matched to indication, i.e. head), or iterative reconstruction technique. FINDINGS: LOWER THORAX: No acute finding. ABDOMEN & PELVIS: The liver, gallbladder, adrenal glands, and kidneys have an unremarkable appearance. There is mild splenomegaly at 15 cm. 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 Interval appendectomy. No evidence of diverticulitis, intestinal obstruction, or free air. No pelvic mass or abnormal fluid collection. There is a tiny umbilical hernia which contains fat the. There does appear to be a high degree of stenosis of the celiac artery which appears greater than 50 percent with some mild poststenotic dilatation. CT angiogram the 05/09/2019 confirm this finding. No acute bony findings. There are degenerative changes of the lumbar spine. There is some curvilinear calcification of the right femoral head consistent with avascular necrosis IMPRESSION: 1. No change in the mild splenomegaly. 2. 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 MRI may confirm Dictated by: Dagoberto Contreras MD 08/25/2019 11:11 Electronically signed by Dagoberto Contreras MD in [place] 08/25/2019 11:11
== END ==
PROVIDERS: PCP Nurse Practitioner Family; Visit Provider Surgery
DX: Z90.49 Acquired absence of other specified parts of digestive tract (principal)
CPT/HCPCS: 74177; Q9967

== ENCOUNTER → 2019-09-28 13:39 | Outpatient (CLI) | payer MEDICARE, SELFPAY ==
[2019-09-28 16:03] LABS: Prostate Specific Ag Screen 0.9 ng/ml (0.0-4.0)
== END ==
PROVIDERS: Visit Provider Urology
DX: Z12.5 Encounter for screening for malignant neoplasm of prostate (principal)
CPT/HCPCS: 36415; G0103

== ENCOUNTER 2019-12-08 12:28 | Emergency (ER) | payer MEDICARE, SELFPAY ==
[2019-12-08 12:29] VITALS: BP 130/87; PULSE 78; RESP 16; TEMP 36.4; O2SAT 91; BMI 37.5
--- NOTE | 2019-12-08 12:56 | XR_ITS ---
PROCEDURE: XR ANKLE RT MIN 3V CLINICAL INDICATION: fall COMPARISON: No exams were available for comparison FINDINGS: There is minor diffuse soft tissue swelling laterally. The medial and lateral malleolus appear intact and the ankle mortise is normal. The talus and calcaneus appear intact. There is minor spurring of the calcaneus at the insertion of Achilles tendon. IMPRESSION: Negative for acute fracture Dictated Dr. Joseph Bentley MD 12/08/2019 13:30 Dr. Joseph Marcano MD in [place] 12/08/2019 13:30
--- NOTE | 2019-12-08 13:01 | [facility].EDGENADL ---
ED Disposition Clinical Impression: Right fibular fracture Qualifiers: Encounter type: initial encounter Fibula location: proximal Fracture type: closed Fracture morphology: unspecified fracture morphology Qualified Code(s): S82.831A - Other fracture of upper and lower end of right fibula, initial encounter for closed fracture Right ankle sprain Qualifiers: Encounter type: initial encounter Involved ligament of ankle: unspecified ligament Qualified Code(s): S93.401A - Sprain of unspecified ligament of right ankle, initial encounter Disposition: Home, Self-Care Condition on Discharge: Fair Instructions: How to Prevent Falls, DI for Ankle Sprain, How to Use a Walking Boot, How to Use a Knee Immobilizer Additional Instructions: See Dr. Zaragoza in her office at 9:30 AM on 12/11/2019. Orthopedic boot and knee immobilizer until seen by Dr. Zaragoza. May bear weight while using a walker. Ice and elevation to reduce swelling. Percocet as needed for pain. Additional instructions for CONTROLLED SUBSTANCES: You have been prescribed a medication that is a controlled substance. Controlled substances include pain medications known as opiates and sedative nerve medications known as benzodiazepines. Tramadol, fioricet, and gabapentin are also controlled substances. Some common opiates include: Codeine (such as Tylenol #3) Hydrocodone (Vicodin, Lortab, Lorcet, [place]) Oxycodone (Percocet, Percodan, Oxycodone, Oxy IR) Some common benzodiazepines include: Diazepam (Valium) Lorazepam (Ativan) Alprazolam (Xanax) Clonazepam (Klonopin) Oxazepam (Serax) All of these controlled substances are highly addictive and frequently abused. Misuse can and frequently does lead to addiction as well as overdose and . Medication should be stored in a locked cabinet or other secure storage unit. Do not store the medication in a motor vehicle. Short term supplies, 3 days or less, are prescribed because of the highly addictive nature of the medication. Any of the controlled substance medication NOT taken should be disposed of properly and NOT SAVED. The recommended method of disposing of unused medications is: Place the medicines in a sealable plastic bag. If the medicine is a solid, crush it or add water to dissolve it. Add something undesirable (cat litter, coffee grounds, etc.) Dispose of sealed bag in household trash Do not flush or pour unused medicines down a sink or drain. Controlled substances should not be shared, given away or sold. Because of the addictive nature and frequent abuse, these medications are sometimes stolen. These medications should be kept in a safe place where they cannot be stolen. Do not keep them in your car or purse. Lost or stolen prescriptions for controlled substances WILL NOT BE REFILLED in this emergency department, regardless of whether a police report was filed. Prescriptions: Oxycodone HCl/Acetaminophen [Percocet 5/325mg tablet] 1 tab PO Q6HP PRN #10 tablet PRN Reason: Moderate To Severe Pain Transmission Status: Sent to [id number] Referrals: Christina Hansen APRN [Primary Care Provider] - - Critical Care Critical Care Time: No Attestation: On 12/08/19, the high probability of a clinically significant, sudden or life threatening deterioration of the following system(s) required my full and direct attention, intervention and personal management. The time I documented below is in addition to time spent performing reported procedures but includes the following listed in this critical care notation. Medical Decision Making - Rodríguez Inquiry Pt receiving controlled substance: No Vital Signs: 12/08/19 12:29 12/08/19 13:29 Temperature 97.6 F Temperature Source Oral Pulse Rate [Radial] 78 75 Respiratory Rate 16 20 Blood Pressure [Right Arm] 130/87 120/85 Blood Pressure Mean [Right Arm] 101 96 Blood Pressure Source [Right Arm] Automatic Cuff Automat
--- NOTE | 2019-12-08 13:16 | XR_ITS ---
PROCEDURE: XR TIBIA FIBULA RT 2V CLINICAL INDICATION: fall Posttraumatic pain COMPARISON: CR XR KNEE RT 3V from 12/08/2019 FINDINGS: There is a nondisplaced acute appearing fracture involving the proximal aspect of the fibula at the proximal shaft. Osteoarthritic changes are present at the knee. The mid distal aspect of the tibia and fibula have an unremarkable appearance. IMPRESSION: The nondisplaced proximal fibular fracture Dictated b Dagoberto Contreras MD 12/08/2019 14:52 Dagoberto Contreras MD in [place] 12/08/2019 14:52
--- NOTE | 2019-12-08 13:16 | XR_ITS ---
PROCEDURE: XR KNEE RT 3V CLINICAL INDICATION: fall Pain following injury COMPARISON: CR [id number] KNEE-4 OR 5 VIEWS-RT from 05/29/2014 CR [id number] KNEE-4 OR 5 VIEWS-LT from 05/29/2014 CR [id number] KNEE-4 OR 5 VIEWS-RT from 08/24/2016 FINDINGS: There is a nondisplaced oblique fracture involving the proximal shaft of the fibula. There are moderate osteoarthritic changes involving the right knee greatest at the medial compartment with osteophytes medially and at the tibial spine. Osteoarthritis also at the patellofemoral joint. Other findings:None. IMPRESSION: Nondisplaced proximal fibular fracture with osteoarthritis of the knee Dictated b Dagoberto Contreras MD 12/08/2019 14:53 Dagoberto Contreras MD in [place] 12/08/2019 14:53
[2019-12-08 13:29] VITALS: BP 120/85; PULSE 75; RESP 20; O2SAT 91
[2019-12-08 15:29] VITALS: BP 154/78; PULSE 78; RESP 16; TEMP 36.6; O2SAT 98
== END 2019-12-08 15:42 | disposition home or self-care (01) ==
PROVIDERS: Emergency Provider Emergency Medicine; PCP Nurse Practitioner Family
DX: S82.831A Other fracture of upper and lower end of right fibula, initial encounter for closed fracture (principal); W17.89XA Other fall from one level to another, initial encounter; Y92.019 Unspecified place in single-family (private) house as the place of occurrence of the external cause; I10 Essential (primary) hypertension; E78.5 Hyperlipidemia, unspecified; I50.22 Chronic systolic (congestive) heart failure; I25.10 Atherosclerotic heart disease of native coronary artery without angina pectoris; Z87.891 Personal history of nicotine dependence; Z79.899 Other long term (current) drug therapy
CPT/HCPCS: 29505; 73562; 73590; 73610; 99283

== ENCOUNTER → 2019-12-18 10:53 | Outpatient (CLI) | payer MEDICARE, SELFPAY ==
--- NOTE | 2019-12-18 10:57 | CA_ITS ---
APPROVED REPORT EXAM: Comprehensive 2D, Doppler, and color-flow Echocardiogram Customer Relationship Specialist: Oneyda Snow RVT Ht: 6 ft 1 in Wt: 285lbs BSA: 2.50 BP: 121/77 mmHg Indications: SOA,CAD,HTN,H;D,CHF,DIZZINESS,GERD,EX SMOKER 2D Dimensions LVOT 2.66 cm (M/F) 1.5-2.5 M-Mode Dimensions RVDd 2.68 cm (0.9-2.6) LVDd 5.99 cm (3.5-5.7) LVDs 4.41 cm (3.5-5.7) IVSd 0.85 cm (0.6-1.1) PWd 0.65 cm (0.6-1.1) EF (Teich) 50.80% FS 26.40% EDV (Teich) 179.30 mL ESV (Teich) 88.20 mL LV Diastology E/A Ratio 1.11 Mitral Valve MV A Velocity 39.00 (40-130 cm/s) Left Ventricle Left atrium is mildly enlarged, left ventricle is normal size, mild concentric left ventricular hypertrophy, visually estimated ejection fraction approximately 30%, there is moderate hypokinesis involving the inferior basal wall, mid to distal septum and anterior apical wall. Diastolic parameters are inconclusive. Right Ventricle Right atrium and right ventricular normal size and contractility. Aortic Valve Aortic valve is thickened and calcified leaflet continue to display mobility, there is no aortic stenosis. Mitral Valve Mitral valve leaflets are minimally thickened, there is mild mitral regurgitation. Tricuspid Valve Tricuspid valve grossly normal, there is mild tricuspid regurgitation, tricuspid regurgitation jet velocity is inadequate for calculation of the right ventricular systolic pressure. Pulmonic Valve Pulmonic valve is poorly visualized. Great Vessels Aortic root is normal size. Pericardium No significant pericardial effusion noted. Conclusion 1. Mildly enlarged left atrium, normal left ventricular size, mild concentric left ventricular hypertrophy, visually estimated ejection fraction 30% with segmental wall motion abnormality described above, diastolic parameters are inconclusive. 2. Mild mitral and tricuspid regurgitation. 3. No significant pericardial effusion noted. Electronically signed by : Joni Montana, 12/18/2019 19:46:10
== END ==
PROVIDERS: PCP Nurse Practitioner Family; Visit Provider Nurse Practitioner Family
DX: R06.09 Other forms of dyspnea (principal)
CPT/HCPCS: 93306

== ENCOUNTER → 2020-01-01 13:21 | Outpatient (CLI) | payer MEDICARE, SELFPAY ==
--- NOTE | 2020-01-01 13:25 | XR_ITS ---
PROCEDURE: XR KNEE RT 3V CLINICAL INDICATION: proximal fib fracture Follow-up fracture COMPARISON: CR [id number] KNEE-4 OR 5 VIEWS-RT from 05/29/2014 CR [id number] KNEE-4 OR 5 VIEWS-LT from 05/29/2014 CR [id number] KNEE-4 OR 5 VIEWS-RT from 08/24/2016 CR XR KNEE RT 3V from 12/08/2019 FINDINGS: Severe osteoarthritic changes are present at the medial compartment with moderate to severe osteoarthritis of the patellofemoral joint. Oblique nondisplaced fracture involves the proximal shaft of the fibula at the diaphyseal region. Fracture line still visible. There is some developing callus formation posteriorly. Other findings:None. IMPRESSION: Healing fracture nondisplaced proximal fibula. Osteoarthritis of the knee Dictated by: Dagoberto Contreras MD 01/01/2020 15:53 Dagoberto Contreras MD in [place] 01/01/2020 15:53
--- NOTE | 2020-01-01 13:25 | XR_ITS ---
PROCEDURE: XR ANKLE RT MIN 3V CLINICAL INDICATION: Rt fib fracture Posttraumatic pain COMPARISON: CR ANKL3 ANKLE-LT-3 VIEWS from 10/23/2014 CR XR ANKLE RT MIN 3V from 12/08/2019 FINDINGS: No obvious fracture or dislocation. The talus has an unremarkable appearance. The ankle mortise is preserved. No significant degenerative change. IMPRESSION: No acute findings. Dictated by: Dagoberto Contreras MD 01/01/2020 15:55 Dagoberto Contreras MD in [place] 01/01/2020 15:55
== END ==
PROVIDERS: PCP Nurse Practitioner Family; Visit Provider Orthopaedic Surgery
DX: S93.401A Sprain of unspecified ligament of right ankle, initial encounter (principal); S82.401A Unspecified fracture of shaft of right fibula, initial encounter for closed fracture
CPT/HCPCS: 73562; 73610

== ENCOUNTER 2020-01-05 07:49 | Day surgery (SDC) | payer MEDICARE, SELFPAY ==
[2020-01-05] VITALS (14 sets, daily range): BP systolic 89–123; BP diastolic 46–86; PULSE 58–72; RESP 17–20; TEMP 36.6–36.7; O2SAT 90–97; BMI 37.5
--- NOTE | 2020-01-05 | IR_ITS ---
APPROVED REPORT Patient Location: Outpatient Supervisor [employer]: DAVION Estrada RT (R) PROCEDURES Left heart catheterization Left ventriculogram Selective coronary angiogram FFR to the LAD Drug-eluting stent deployment to the proximal ID INDICATION New onset cardiomyopathy ejection fraction 30-35%, Coronary artery disease, Ischemic response to adenosine with an FFR index of 0.76 Informed consent was obtained prior to the procedure. COMPLICATIONS NONE Estimated Blood Loss: LESS THAN 10 ML TECHNIQUE One percent lidocaine used to anesthetize the right anterior aspect of the wrist. The right radial artery was accessed via the Seldinger technique. A 6 [place] sheath was placed in the right radial artery. 2.5 mg of verapamil, 800 mcg of nitroglycerin, 1mg Lidocaine and 5000 U Heparin were given through the arterial sheath. The trap catheter was also used to perform left heart catheterization, left ventriculogram and selective coronary angiogram. At the end of the diagnostic angiogram therapeutic heparin was administered giving a therapeutic ACT. A JL 3 5 guide catheter was placed in the ascending aorta and an FFR wire was normalized. The catheter was used to cannulate the left main artery and the wire was placed distally in the LAD. Adenosine was infused and the FFR index dropped to 0.76. At this point a 3.5 x 18 mm resolute diana stent was placed in the proximal to mid LAD and deployed at 14 stefano. A 3.5 x 8 mm noncompliant balloon was brought back into the proximal and midportion of the LAD stent and deployed at 22 stefano. JOVITA II flow was present at the beginning of the procedure with JOVITA II-III flow at the end of the procedure. At the end of the procedure the apparatus was removed the sheath was removed good hemostasis was achieved using TR banding patient was transferred to the postop holding area stable condition. ANGIOGRAPHIC RESULTS The left main artery Normal The left anterior descending artery Proximal LAD has a 40% stenosis immediately distal to a moderate-sized first diagonal artery yet adjacent to the first septal lard refiner. The remaining LAD has no disease however JOVITA II flow is present The circumflex artery Nondominant yet still large and normal The right coronary artery Dominant vessel and has proximal and mid vessel 20 to 30% stenoses The LINDO ventriculogram reveals Dilated ventricle ejection fraction 30 to 35% The left ventricular end-diastolic pressure 10 to 15 mmHg IMPRESSION Ischemic response to adenosine and a moderately diseased LAD accompanied by JOVITA II flow in the setting of new onset cardiomyopathy Successful stenting of the proximal to mid LAD hemodynamically severe disease reduced to 0% with one drug-eluting stent Reduced ejection fraction Normal left ventricular end-diastolic pressure PLAN 1. Dual antiplatelet therapy 2. LDL less than 55 3. Standard therapy for systolic heart failure 4. Avoidance of tobacco products 5. Cardiac rehabilitation 6. In 3 months ejection fraction will be evaluated to determine if patient is a candidate for an AICD Electronically signed by : Trace Beard, 01/05/2020 10:12:47
[2020-01-05 08:31] LABS: Basophils % 0.6 % (0.1-2.0); Eosinophils # 0.3 K/mm3 (0.0-0.4); Eosinophils % 5.3 % (0.1-12.0); Lymphocytes # 2.1 K/mm3 (0.7-4.5); Lymphocytes % 33.8 % (10-50); Mean Corpuscular HGB Conc 34.7 g/dL (31.8-35.4); Mean Corpuscular Hemoglobin 29.8 pg (27.0-31.2); Mean Corpuscular Volume 85.7 fl (80-94); Mean Platelet Volume 8.6 fl (7.4-10.4); Monocytes # 0.4 K/mm3 (0.1-1.0); Monocytes % 5.8 % (1.7-9.3); Neutrophils # 3.4 K/mm3 (1.8-7.8); Neutrophils % 54.4 % (37.0-80.0); Platelet Count 177 K/mm3 (142-424); Red Blood Count 5.71 M/mm3 (4.60-6.20); Red Cell Distribution Width 13.6 % (11.5-17.5); White Blood Count 6.3 K/mm3 (4.8-10.8)
[2020-01-05 08:44] LABS: Anion Gap 13.6 mEq/L (5-15); Blood Urea Nitrogen 12 mg/dl (9-20); Calcium 9.6 mg/dl (8.4-10.2); Carbon Dioxide 35 mmol/L (22.0-30.0); Chloride 96 mmol/L (98-107); Creatinine Clearance Estimated 131 mL/min (50-200); Estimated Glomerular Filt Rate 68 ml/min (>60); GFR (African American) 83 ML/MIN (>60); Glucose 112 mg/dl (74-100); Potassium 3.6 mmoL/L (3.5-5.1); Sodium 141 mmol/L (136-145)
[2020-01-05 08:58] LABS: Coronavirus 19 IgG Antibody Negative (Negative); Coronavirus 19 IgM Antibody Negative (Negative)
[2020-01-05 13:29] LABS: CATHL Activated Clotting Time > 400 SEC (74-125)
--- NOTE | 2020-01-05 14:10 | HMH.PHACLD ---
Helio Boyd has received discharge medication counseling on the following medications: PATIENT IS CURRENTLY TAKING: BISOPROLOL 10 MG DAILY LISINOPRIL 10 MG BID LOVASTATIN 40 MG HS MD ADDING ASPIRIN 81 MG DAILY AND BRILINTA 90 MG BID.
== END 2020-01-05 14:19 | disposition home or self-care (01) ==
LOC: CATHLAB 07:49
PROVIDERS: PCP Nurse Practitioner Family; Visit Provider Internal Medicine
DX: I25.10 Atherosclerotic heart disease of native coronary artery without angina pectoris (principal); I11.0 Hypertensive heart disease with heart failure; I50.43 Acute on chronic combined systolic (congestive) and diastolic (congestive) heart failure; I77.1 Stricture of artery; I70.203 Unspecified atherosclerosis of native arteries of extremities, bilateral legs; I42.9 Cardiomyopathy, unspecified
CPT/HCPCS: 80048; 85025; 85347; 86328; 92928; 93458; 93571; 99152; 99153; C1725; C1769; C1876; C9600; J0153; J1644; J2405; Q9967

== ENCOUNTER → 2020-01-18 10:07 | Outpatient (CLI) | payer MEDICARE, SELFPAY ==
[2020-01-18 10:34] LABS: Blood Urea Nitrogen 7 mg/dl (9-20); Estimated Glomerular Filt Rate 68 ml/min (>60); GFR (African American) 83 ML/MIN (>60)
== END ==
PROVIDERS: Visit Provider Orthopaedic Surgery
DX: S82.401A Unspecified fracture of shaft of right fibula, initial encounter for closed fracture (principal)
CPT/HCPCS: 36415; 82565; 84520

== ENCOUNTER → 2020-02-16 11:10 | Outpatient (CLI) | payer MEDICARE, SELFPAY ==
[2020-02-16 11:38] LABS: Blood Urea Nitrogen 11 mg/dl (9-20); Estimated Glomerular Filt Rate 56 ml/min (>60); GFR (African American) 68 ML/MIN (>60)
[2020-02-16 11:49] LABS: Alanine Aminotransferase 23 U/L (12-78); Alkaline Phosphatase 75 U/L (38-126); Aspartate Amino Transferase 32 U/L (17-59); Bilirubin,Direct 0.1 mg/dl (0.0-0.4); Bilirubin,Indirect 0.7 mg/dL (0.0-0.9); Bilirubin,Total 0.8 mg/dl (0.2-1.3); Bilirubin,Unconjugated 0.7 mg/dL (0.0-1.1); Cholesterol 144 mg/dl (140-200); Triglycerides 156 mg/dl (30-150); VLDL Cholesterol 31 mg/dL (0-40)
[2020-02-16 11:50] LABS: Albumin Level 4.1 g/dl (3.5-5.0); Chol/HDL Ratio 4.5 (1-3.5); HDL Cholesterol 32 mg/dl (40-60); Total Protein,Serum 6.4 g/dl (6.3-8.2)
--- NOTE | 2020-02-16 12:16 | MR_ITS ---
PROCEDURE: MR ANKLE RT WO/W CON CLINICAL INDICATION: ankle fracture, ankle pain okay the EVALUATE RT ANKLE FX S/P FALL 12/08/19. COMPARISON: CR XR ANKLE RT MIN 3V from 12/08/2019 CR XR ANKLE RT MIN 3V from 01/01/2020 TECHNIQUE: Routine multiplanar multi echo sequences are performed without and with gadolinium enhancement. FINDINGS: There is a nondisplaced longitudinal fracture involving the posterior aspect of the distal tibia. There is some cortical regularity involving the distal tibia at the ankle joint posteriorly at the region of the fracture. There is generalized edema of the soft tissues about the ankle. Small ankle joint effusion is present. The ATFL and PT FL appear intact. The deltoid ligament appears intact. The peroneal tendons, tibialis posterior, flexor digitorum and flexor hallucis longus tendons and the Achilles tendon as well as the anterior extensor tendons appear intact. IMPRESSION: 1. There is a nondisplaced longitudinal fracture involving the posterior aspect of the distal tibia with intra-articular extension with some comminution at the articular surface. 2. Ankle joint effusion with soft tissue swelling Dictated by: Dagoberto Contreras MD 02/19/2020 10:28 Dagoberto Contreras MD in [place] 02/19/2020 10:28
== END ==
PROVIDERS: Internal Medicine; PCP Nurse Practitioner Family; Visit Provider Orthopaedic Surgery
DX: E78.5 Hyperlipidemia, unspecified (principal); I11.9 Hypertensive heart disease without heart failure; I25.10 Atherosclerotic heart disease of native coronary artery without angina pectoris; I42.9 Cardiomyopathy, unspecified; I50.22 Chronic systolic (congestive) heart failure; I73.9 Peripheral vascular disease, unspecified; K55.1 Chronic vascular disorders of intestine; R06.00 Dyspnea, unspecified; S82.401A Unspecified fracture of shaft of right fibula, initial encounter for closed fracture
CPT/HCPCS: 36415; 73723; 80061; 80076; 82565; 84520; A9576

== ENCOUNTER → 2020-02-20 15:54 | Outpatient (CLI) | payer MEDICARE, SELFPAY ==
--- NOTE | 2020-02-20 16:00 | XR_ITS ---
PROCEDURE: XR ANKLE WT BEARING LT MIN 3V CLINICAL INDICATION: pain COMPARISON: CR ANKL3 ANKLE-LT-3 VIEWS from 10/23/2014 CR XR ANKLE RT MIN 3V from 12/08/2019 FINDINGS: No fracture or dislocation. There are mild osteoarthritic changes at the ankle medially. There is a small area of exostosis involving the the distal shaft of the tibia medially which is stable since 10/23/2014 IMPRESSION: Mild osteoarthritic change, no acute finding. Dictated by: Dagoberto Contreras MD 02/21/2020 05:47 Dagoberto Contreras MD in [place] 02/21/2020 05:47
--- NOTE | 2020-02-20 16:00 | XR_ITS ---
PROCEDURE: XR FOOT WT BEARING LT 3V CLINICAL INDICATION: pain COMPARISON: CR FTL3 FOOT-LT-3 VIEWS from 10/23/2014 FINDINGS: No fracture or dislocation. No lytic or blastic change. There is normal mineralization. There are mild osteoarthritic changes at the talonavicular joint with a well-circumscribed calcific density at the anterior aspect of the talonavicular joint measuring 5 mm and may be due to an osteophyte. A lucency is present at the base of this osteophyte which could be due to nondisplaced fracture. CT may confirm. There is borderline pes planus. A metallic density is present within the plantar soft tissues along the plantar aspect of the 5th metatarsophalangeal joint. This density is coiled. Other findings:None. IMPRESSION: 1. Metallic foreign body along the plantar aspect of the 5th metatarsophalangeal joint 2. Mild osteoarthritic change with possible fracture at the base of an osteophyte at the talonavicular joint Dictated by: Dagoberto Contreras MD 02/21/2020 05:53 Dagoberto Contreras MD in [place] 02/21/2020 05:53
--- NOTE | 2020-02-20 16:00 | XR_ITS ---
PROCEDURE: XR ANKLE WT BEARING RT MIN 3V CLINICAL INDICATION: fracture eval Pain following injury COMPARISON: CR ANKL3 ANKLE-LT-3 VIEWS from 10/23/2014 CR XR ANKLE RT MIN 3V from 12/08/2019 CR XR ANKLE RT MIN 3V from 01/01/2020 MR MR ANKLE RT WO/W CON from 02/16/2020 FINDINGS: There is a vague longitudinal fracture involving the posterior aspect of the distal tibia which extends into the articular surface of the distal tibia. This is much better demonstrated on the MRI of 02/16/2020. There is no overlying wrap in place. IMPRESSION: Nondisplaced fracture posterior distal tibia extending into the articular surface neck is better demonstrated on MRI Dictated by: Dagoberto Contreras MD 02/21/2020 05:50 Dagoberto Contreras MD in [place] 02/21/2020 05:50
--- NOTE | 2020-02-20 16:00 | XR_ITS ---
PROCEDURE: XR TIBIA FIBULA RT 2V CLINICAL INDICATION: fracture evaluation COMPARISON: CR XR TIBIA FIBULA RT 2V from 12/08/2019 FINDINGS: There is a healing fracture involving the proximal fibula with developing callus formation with good alignment. Mild osteoarthritic changes are present at the knee. There is a known fracture involving the distal tibia posteriorly. This however is not well demonstrated on the plain films. Overlying artifact is present from patient's wrap IMPRESSION: Healing proximal fibular fracture. Nondisplaced distal tibial fracture not well demonstrated on plain films but better seen on MRI. Dictated by: Dagoberto Contreras MD 02/21/2020 05:55 Dagoberto Contreras MD in [place] 02/21/2020 05:55
== END ==
PROVIDERS: PCP Nurse Practitioner Family; Visit Provider Podiatrist
DX: T14.8XXA Other injury of unspecified body region, initial encounter (principal); M79.672 Pain in left foot; M79.671 Pain in right foot; M25.572 Pain in left ankle and joints of left foot; M25.571 Pain in right ankle and joints of right foot
CPT/HCPCS: 73590; 73610; 73630

== ENCOUNTER → 2020-03-15 10:27 | Outpatient (CLI) | payer MEDICARE, SELFPAY ==
[2020-03-15 11:47] LABS: Basophils % 0.9 % (0.1-2.0); Eosinophils # 0.1 K/mm3 (0.0-0.4); Eosinophils % 2.1 % (0.1-12.0); Hematocrit 46.7 % (42.0-52.0); Hemoglobin 15.6 g/dL (14.1-18.0); Lymphocytes # 1.2 K/mm3 (0.7-4.5); Lymphocytes % 33.4 % (10-50); Mean Corpuscular HGB Conc 33.4 g/dL (31.8-35.4); Mean Corpuscular Hemoglobin 29.3 pg (27.0-31.2); Mean Corpuscular Volume 87.9 fl (80-94); Mean Platelet Volume 8.3 fl (7.4-10.4); Monocytes # 0.3 K/mm3 (0.1-1.0); Monocytes % 8.2 % (1.7-9.3); Neutrophils # 2.1 K/mm3 (1.8-7.8); Neutrophils % 55.3 % (37.0-80.0); Platelet Count 158 K/mm3 (142-424); Red Blood Count 5.32 M/mm3 (4.60-6.20); Red Cell Distribution Width 14.1 % (11.5-17.5); White Blood Count 3.7 K/mm3 (4.8-10.8)
[2020-03-15 14:42] LABS: Alanine Aminotransferase 46 U/L (12-78); Albumin Level 4.6 g/dl (3.5-5.0); Alkaline Phosphatase 76 U/L (38-126); Anion Gap 14.5 mEq/L (5-15); Aspartate Amino Transferase 62 U/L (17-59); Bilirubin,Total 0.9 mg/dl (0.2-1.3); Blood Urea Nitrogen 15 mg/dl (9-20); Calcium 9.7 mg/dl (8.4-10.2); Carbon Dioxide 30 mmol/L (22.0-30.0); Chloride 101 mmol/L (98-107); Estimated Glomerular Filt Rate 44 ml/min (>60); GFR (African American) 54 ML/MIN (>60); Globulin 2.3 g/dL (1.3-3.2); Glucose 105 mg/dl (74-100); Potassium 4.5 mmoL/L (3.5-5.1); Sodium 141 mmol/L (136-145); Total Protein,Serum 6.9 g/dl (6.3-8.2)
== END ==
PROVIDERS: Visit Provider Internal Medicine Adolescent Medicine
DX: I95.1 Orthostatic hypotension (principal)
CPT/HCPCS: 36415; 80053; 85025

== ENCOUNTER 2020-03-20 07:22 | Inpatient (IN) | payer MEDICARE, SELFPAY ==
[2020-03-20] VITALS (22 sets, daily range): BP systolic 95–140; BP diastolic 47–88; PULSE 64–79; RESP 17–20; TEMP 36.9–37.4; O2SAT 2–96; BMI 37.5; BMI 34.7
--- NOTE | 2020-03-20 07:40 | XR_ITS ---
PROCEDURE: XR CHEST PORTABLE CLINICAL HISTORY: cough possible covid Cough and headache, low-grade fever COMPARISON: CR CXR2V XR chest 2V from 07/01/2017 CR XR CHEST PORTABLE from 07/04/2019 CR XR CHEST 2V from 07/17/2019 FINDINGS: The cardiomediastinal silhouette and pulmonary vascularity are within normal limits. The lungs are clear without infiltrates, suspicious nodules, or pleural effusions. No acute bony abnormalities. IMPRESSION: No acute findings. Dictated by: Dagoberto Contreras MD 03/20/2020 08:10 Dagoberto Contreras MD in [place] 03/20/2020 08:10
--- NOTE | 2020-03-20 08:56 | HMH.EDGENADL ---
ED Disposition Clinical Impression: COVID-19, Acute respiratory failure due to COVID-19, ELIZABETH (acute kidney injury) Disposition: Admitted As Inpatient Condition on Discharge: Good - Critical Care Critical Care Time: No Attestation: On 03/20/20, the high probability of a clinically significant, sudden or life threatening deterioration of the following system(s) required my full and direct attention, intervention and personal management. The time I documented below is in addition to time spent performing reported procedures but includes the following listed in this critical care notation. Medical Decision Making - Rodríguez Inquiry Pt receiving controlled substance: No Rodríguez was queried for this patient: No Vital Signs: 03/20/20 07:35 03/20/20 07:54 03/20/20 08:24 Temperature 98.5 F Temperature Source Oral Pulse Rate [Right Brachial] 79 78 74 Respiratory Rate 17 Blood Pressure [Right Arm] 124/74 108/65 L 115/60 Blood Pressure Mean [Right Arm] 90 79 78 Blood Pressure Source [Right Arm] Automatic Cuff Automatic Cuff Blood Pressure Position [Right Arm] Sitting Sitting 02 Sat by Pulse Oximetry 92 L 92 L 89 L Oxygen Delivery Method Room Air Room Air Room Air Oxygen Flow Rate (LPM) 03/20/20 08:59 03/20/20 09:00 03/20/20 09:30 Temperature Temperature Source Pulse Rate [Right Brachial] 72 73 71 Respiratory Rate Blood Pressure [Right Arm] 120/75 120/75 140/88 Blood Pressure Mean [Right Arm] 90 90 105 Blood Pressure Source [Right Arm] Automatic Cuff Automatic Cuff Automatic Cuff Blood Pressure Position [Right Arm] Sitting Sitting Sitting 02 Sat by Pulse Oximetry 95 95 92 L Oxygen Delivery Method Nasal Cannula Nasal Cannula Nasal Cannula Oxygen Flow Rate (LPM) 2 2 03/20/20 10:05 03/20/20 10:39 03/20/20 11:00 Temperature Temperature Source Pulse Rate [Right Brachial] 67 69 68 Respiratory Rate Blood Pressure [Right Arm] 110/76 101/52 L 121/69 Blood Pressure Mean [Right Arm] 87 68 86 Blood Pressure Source [Right Arm] Automatic Cuff Automatic Cuff Blood Pressure Position [Right Arm] Sitting Sitting 02 Sat by Pulse Oximetry 96 94 L 93 L Oxygen Delivery Method Nasal Cannula Nasal Cannula Nasal Cannula Oxygen Flow Rate (LPM) 2 03/20/20 12:00 03/20/20 12:54 03/20/20 13:00 Temperature Temperature Source Pulse Rate [Right Brachial] 67 70 66 Respiratory Rate Blood Pressure [Right Arm] 129/81 96/47 L 105/84 L Blood Pressure Mean [Right Arm] 97 63 91 Blood Pressure Source [Right Arm] Automatic Cuff Automatic Cuff Automatic Cuff Blood Pressure Position [Right Arm] Sitting Sitting Sitting 02 Sat by Pulse Oximetry 93 L 92 L 94 L Oxygen Delivery Method Room Air Nasal Cannula Room Air Oxygen Flow Rate (LPM) 2 2 - Lab Data Lab Results 03/20/20 09:00: Sodium 138, Potassium 4.0, Chloride 99, Carbon Dioxide 32 H, Anion Gap 11.0, BUN 20, Creatinine 1.80 H, Estimated Creat Clear 80, Estimated GFR 39 L, Est GFR ( Amer) 47 L, Glucose 100, Calcium 9.0, Total Bilirubin 0.8, AST 54, ALT 37, Alkaline Phosphatase 64, Total Protein 7.4, Albumin 4.6, Globulin 2.8, Albumin/Globulin Ratio 1.6 03/20/20 09:00: SARS-CoV-2 IgG Ab (Rapid) Negative, SARS-CoV-2 IgM Ab (Rapid) Negative 03/20/20 09:00: WBC 2.5 L, RBC 5.42, Hgb 15.5, Hct 46.6, MCV 86.0, MCH 28.7, MCHC 33.4, RDW 14.0, Plt Count 120 L, MPV 8.8, Neut % (Auto) 68.9, Lymph % (Auto) 22.4, [place] % (Auto) 7.8, Eos % (Auto) 0.3, Baso % (Auto) 0.5, Neut # (Auto) 1.7 L, Lymph # (Auto) 0.6 L, [place] # (Auto) 0.2, Eos # (Auto) 0.0, Baso # (Auto) 0.0 03/20/20 09:00: NT-Pro-B Natriuret Pep 94.8 03/20/20 09:00: CK-MB (CK-2) < 0.2, Troponin I < 0.01 Result diagrams: 03/20/20 09:00 03/20/20 09:00 Orders (Tests/Meds): ED MEDICATIONS Generic Name Dose Route Start Last Admin Trade Name Freq PRN Reason Stop Dose Admin Acetaminophen 650 mg 03/20/20 13:14 Acetaminophen 325mg Tab PO 04/19/20 13:13 Q4HP PRN As Needed for Fever or Pa
[2020-03-20 09:13] LABS: Chloride 99 mmol/L (98-107); Sodium 138 mmol/L (136-145)
[2020-03-20 09:16] LABS: Alanine Aminotransferase 37 U/L (12-78); Albumin Level 4.6 g/dl (3.5-5.0); Albumin/Globulin Ratio 1.6 (1.1-1.8); Alkaline Phosphatase 64 U/L (38-126); Aspartate Amino Transferase 54 U/L (17-59); Bilirubin,Total 0.8 mg/dl (0.2-1.3); Blood Urea Nitrogen 20 mg/dl (9-20); Carbon Dioxide 32 mmol/L (22.0-30.0); Creatinine Clearance Estimated 80 mL/min (50-200); Estimated Glomerular Filt Rate 39 ml/min (>60); GFR (African American) 47 ML/MIN (>60); Globulin 2.8 g/dL (1.3-3.2); Total Protein,Serum 7.4 g/dl (6.3-8.2)
[2020-03-20 09:17] LABS: Glucose 100 mg/dl (74-100)
[2020-03-20 09:48] LABS: Coronavirus 19 IgG Antibody Negative (Negative); Coronavirus 19 IgM Antibody Negative (Negative)
[2020-03-20 09:56] LABS: Basophils % 0.5 % (0.1-2.0); Eosinophils % 0.3 % (0.1-12.0); Hematocrit 46.6 % (42.0-52.0); Hemoglobin 15.5 g/dL (14.1-18.0); Lymphocytes # 0.6 K/mm3 (0.7-4.5); Lymphocytes % 22.4 % (10-50); Mean Corpuscular HGB Conc 33.4 g/dL (31.8-35.4); Mean Corpuscular Hemoglobin 28.7 pg (27.0-31.2); Mean Platelet Volume 8.8 fl (7.4-10.4); Monocytes # 0.2 K/mm3 (0.1-1.0); Monocytes % 7.8 % (1.7-9.3); Neutrophils # 1.7 K/mm3 (1.8-7.8); Neutrophils % 68.9 % (37.0-80.0); Platelet Count 120 K/mm3 (142-424); Red Blood Count 5.42 M/mm3 (4.60-6.20); White Blood Count 2.5 K/mm3 (4.8-10.8)
[2020-03-20 10:09] LABS: NT Pro Brain Natriuretic Pep. 94.8 pg/mL (0-125)
--- NOTE | 2020-03-20 10:50 | PC.NURSE ---
waiting manager international back from Dr. Singh
--- NOTE | 2020-03-20 11:05 | PC.NURSE ---
notified care management of admission
--- NOTE | 2020-03-20 11:12 | PC.NURSE ---
house calls nurse practitioner states since pt has already been swabbed for covid and swab is pending, will need to wait on swab results until pt is transferred upstairs for admission. house calls nurse practitioner states she contacted lab and pt swab has 82 minutes left. will notify ER MD of the above.
[2020-03-20 11:44] LABS: Creatine Kinase MB < 0.2 ng/ml (0.0-2.03); Troponin I < 0.01 ng/ml (0.00-0.034)
[2020-03-20 11:54] LABS: D-Dimer 0.43 ug/mL (0.15-8.0)
--- NOTE | 2020-03-20 12:45 | PC.NURSE ---
notified ER pt covid swab result is positive. notified dye house vat worker so she could make bed assignment for pt.
--- NOTE | 2020-03-20 13:17 | P.CONPHA_ITS ---
[facility] Pharmacy VTE Monitoring - Patient Demographics Admission date: 03/20/20 Report Date: 03/20/20 Time: 13:17 Allergies/Adverse Reactions: Patient Allergies No Known Allergies Allergy (Verified 03/11/20 14:50) Height: 1.85 m Weight: 129.274 kg - VTE Risk Labs: VTE Related Lab Results Hgb 15.5 g/dL (14.1-18.0) 03/20/20 09:00 Hct 46.6 % (42.0-52.0) 03/20/20 09:00 Plt Count 120 K/mm3 (142-424) L 03/20/20 09:00 BUN 20 mg/dl (9-20) 03/20/20 09:00 Creatinine 1.80 mg/dl (0.66-1.25) H 03/20/20 09:00 Estimated Creat Clear 80 mL/min (50-200) 03/20/20 09:00 Clinical Trial Participant: No - Prophylaxis VTE Prophylaxis Ordered?: Yes Types of VTE Prophylaxis: TEDS Knee High, Pharmacological Pharmacologic Type: Enoxaparin
--- NOTE | 2020-03-20 17:34 | HMH.HP ---
*Admission Date: 03/20/20 *Chief complaint: Malaise, hypoxia *History of present illness: 59yo M evaluated with concern for coronavirus. Patient is in no acute distress on initial presentation. Differential diagnosis includes but is not limited to: Coronavirus, other viral illness, CHF exacerbation, sinusitis. Labs are pending at this time. Patient also had some concern for unexplained bruising to his abdominal wall. Has a known history of fatty liver but denies taking blood thinners. CMP was ordered to further evaluate liver function. Pt has had O2 sat's of 88-92% RA. Placed on supplemental O2. Called PCP for admission. Dr. Singh agrees w/ admission. Additional labs ordered and negative upon completion. Pt's COVID test returned positive. Above note per emergency department. Patient's abdominal wall bruising has been a long-term problem over the past 6 weeks. I saw him for this several weeks ago and did platelet count of blood counts which were normal. Patient's O2 saturations prompted admission with Covid testing which was positive, along with the initiation of Levaquin therapy for possible bacterial pneumonia. Also with acute kidney injury that will be treated with fluid resuscitation. [facility] History I have reviewed the patient's past medical history: Yes Medical History: Reports:: Aneurysm, Congestive Heart Failure, Coronary Artery Disease, Depression, Gastroesophageal Reflux Disease(GERD), Hyperlipidemia, Hypertension Denies:: Cancer, Chronic Obstructive Pulmonary Disease (COPD), Diabetes Mellitus Type 1, Diabetes Mellitus Type 2, Internal Pacemaker, MRSA, Myocardial Infarction, Seizures *Have you ever received a pneumonia vaccine?: No *Have you received a flu vaccine this season?: No Laterality Cases: Left: Other, Right: Arthroscopy Knee Other Surgeries: Yes: Appendectomy, Colonoscopy, Coronary Stent, Other. No: Pacemaker Amputation: No Fractures: No - *Social History Last grade of school completed: 9th or 10th Smoking Status: Never smoker Tobacco Type: cigarettes Alcohol Intake: never Alcohol Intake Frequency:: other Substance Use Type: denies use *Occupational Status:: disabled Housing: house Household Members: spouse *Travel in the last 8 weeks: None - Psychiatric History Expresses thoughts of harming self/others: None Pschychiatric History:: Reports:: Depression Family Hx:: Coronary Artery Disease, Hyperlipidemia, Hypertension Review of Systems - Review of Systems Review of systems:: pertinent systems reviewed and negative unless documented below Meds Home Medications Medication Instructions Recorded Confirmed Type bupropion HCl 150 mg tablet,12 hr 150 mg PO BID 05/18/17 03/20/20 History sustained-release trazodone 150 mg tablet 150 mg PO HS tab 05/18/17 03/20/20 History amlodipine 5 mg tablet 5 mg PO DAILY #90 tab 03/08/19 03/20/20 Rx bisoprolol fumarate 10 mg tablet 10 mg PO DAILY #90 tab 04/28/19 03/20/20 Rx quetiapine 300 mg tablet 150 mg PO HS tab 05/16/19 03/20/20 History sertraline 100 mg tablet 100 mg PO DAILY tab 05/16/19 03/20/20 History Furosemide [Furosemide 80mg Tab] 80 mg PO DAILY 07/03/19 03/20/20 History Mirabegron [Myrbetriq] 25 mg PO DAILY 07/03/19 03/20/20 History Lovastatin 40 mg PO DAILY 01/05/20 03/20/20 History Aspirin [Low Dose Aspirin EC] 81 mg PO DAILY 03/20/20 03/20/20 History lisinopriL [Prinivil 20mg Tablet] 20 mg PO BID 03/20/20 03/20/20 History Allergies Allergy/AdvReac Type Severity Reaction Status Date / Time No Known Allergies Allergy Verified 03/11/20 14:50 Exam Vital signs and Labs for Last 24 Hours: Temp Pulse Resp BP Pulse Ox 99.0 F 73 20 102/61 L 94 L 03/20/20 16:00 03/20/20 17:00 03/20/20 16:00 03/20/20 16:00 03/20/20 16:00 Laboratory Results - last 24 hr 03/20/20 09:00: Sodium 138, Potassium 4.0, Chloride 99, Carbon Dioxide 32 H, Anion Gap 11.0, BUN 20, Creatinine 1.80 H, Estimated Creat Clear 80, Estimated GFR 39 L, Est GFR (
--- NOTE | 2020-03-20 18:07 | PC.NURSE ---
Patient resting comfortably in bed, alert and oriented x4, perrla, remains on 2LNC, lung sounds diminished t/o, resp even and unlabored, denies any SOA, HR reg, no edema noted, SR with BBB noted on telemetry, abd soft and nontender, active BS in all quads, reports last BM was yesterday 03/19, reports feeling nauseated with low appetite for the last several days, has two healing bruises noted on abdomen, voids per urinal and BR without difficulty, urine yellow and clear, ambulates independently without difficulty, knee high alisha hose in place as well as lovenox for VTE prophylaxis, peripheral pulse 2+, denies any pain at this time, on airborne and contact precautions related to covid, vss, will continue to monitor and provide supportive care
[2020-03-21] VITALS (13 sets, daily range): BP systolic 88–123; BP diastolic 52–60; PULSE 63–73; RESP 14–20; TEMP 36.4–37.4; O2SAT 90–93; BMI 35.4
--- NOTE | 2020-03-21 00:37 | PC.NURSE ---
blood pressure reading at midnight 72/42, manual pressure taken 102/58. patient denies dizziness, visual disturbances or weakness. states that he feels like he is breathing better as well.
--- NOTE | 2020-03-21 03:35 | PC.NURSE ---
automatic blood pressure reading 80/45, manual blood pressure 98/52 . patient denies dizziness, soa, blurred vision or weakness.
--- NOTE | 2020-03-21 05:34 | PC.NURSE ---
patient has rested well throughout night, panel monitor has shown sr with 1 degree avb and ivcd. breath sounds diminished throughout all field, rare to occasional nonproductive cough present. sputum cup at bedside. patient on 2 l nc with sats ranging from 88-94%. averaging at 92% most consistently. short periods of sleep apnea are noted. blood pressure has been reading low on machine but manually reading with sys greater than 90 and map greater than 65. patient ambulates to bathroom, voids clear,yellow urine.
[2020-03-21 05:42] LABS: Basophils % 0.4 % (0.1-2.0); Eosinophils % 0.8 % (0.1-12.0); Hematocrit 40.5 % (42.0-52.0); Lymphocytes # 0.4 K/mm3 (0.7-4.5); Lymphocytes % 39.3 % (10-50); Mean Corpuscular Hemoglobin 28.4 pg (27.0-31.2); Mean Corpuscular Volume 85.9 fl (80-94); Mean Platelet Volume 8.7 fl (7.4-10.4); Monocytes # 0.1 K/mm3 (0.1-1.0); Monocytes % 6.6 % (1.7-9.3); Neutrophils # 0.5 K/mm3 (1.8-7.8); Neutrophils % 52.9 % (37.0-80.0); Platelet Count 107 K/mm3 (142-424); Red Blood Count 4.72 M/mm3 (4.60-6.20); Red Cell Distribution Width 13.4 % (11.5-17.5)
[2020-03-21 05:49] LABS: Chloride 104 mmol/L (98-107); Potassium 4.3 mmoL/L (3.5-5.1); Sodium 137 mmol/L (136-145)
[2020-03-21 05:51] LABS: Alanine Aminotransferase 26 U/L (12-78); Aspartate Amino Transferase 39 U/L (17-59); Bilirubin,Total 0.4 mg/dl (0.2-1.3); Blood Urea Nitrogen 22 mg/dl (9-20); Creatinine Clearance Estimated 84 mL/min (50-200); Estimated Glomerular Filt Rate 44 ml/min (>60); GFR (African American) 54 ML/MIN (>60)
[2020-03-21 05:52] LABS: Albumin Level 3.7 g/dl (3.5-5.0); Albumin/Globulin Ratio 1.5 (1.1-1.8); Alkaline Phosphatase 51 U/L (38-126); Anion Gap 11.3 mEq/L (5-15); Calcium 8.1 mg/dl (8.4-10.2); Carbon Dioxide 26 mmol/L (22.0-30.0); Globulin 2.5 g/dL (1.3-3.2); Glucose 108 mg/dl (74-100); Magnesium 2.1 mg/dl (1.6-2.3); Total Protein,Serum 6.2 g/dl (6.3-8.2)
[2020-03-21 06:15] LABS: Hemoglobin 13.4 g/dL (14.1-18.0); MANUAL DIFFERENTIAL MANUAL DIFFERENTIAL (MANUAL DIFF)
--- NOTE | 2020-03-21 07:53 | HMH.ACPN2 ---
Internal Medicine - PN: Subj *Date: 03/21/20 *Time: 07:53 Interval history: Overall patient feels much better this morning. Reports his belly feels better. Reports is much less dyspnea. Has had no fever. Oxygen requirement has improved, currently 94% on 2 L. Did have some low blood pressure readings after his psychiatry medications were administered last night. Exam Vital signs and Labs for Last 24 Hours: Temp Pulse Resp BP Pulse Ox 97.9 F 72 14 88/52 L 90 L 03/21/20 07:25 03/21/20 07:25 03/21/20 07:25 03/21/20 07:25 03/21/20 07:25 Laboratory Results - last 24 hr 03/20/20 09:00: Sodium 138, Potassium 4.0, Chloride 99, Carbon Dioxide 32 H, Anion Gap 11.0, BUN 20, Creatinine 1.80 H, Estimated Creat Clear 80, Estimated GFR 39 L, Est GFR ( Amer) 47 L, Glucose 100, Calcium 9.0, Total Bilirubin 0.8, AST 54, ALT 37, Alkaline Phosphatase 64, Total Protein 7.4, Albumin 4.6, Globulin 2.8, Albumin/Globulin Ratio 1.6 03/20/20 09:00: SARS-CoV-2 IgG Ab (Rapid) Negative, SARS-CoV-2 IgM Ab (Rapid) Negative 03/20/20 09:00: WBC 2.5 L, RBC 5.42, Hgb 15.5, Hct 46.6, MCV 86.0, MCH 28.7, MCHC 33.4, RDW 14.0, Plt Count 120 L, MPV 8.8, Neut % (Auto) 68.9, Lymph % (Auto) 22.4, [place] % (Auto) 7.8, Eos % (Auto) 0.3, Baso % (Auto) 0.5, Neut # (Auto) 1.7 L, Lymph # (Auto) 0.6 L, [place] # (Auto) 0.2, Eos # (Auto) 0.0, Baso # (Auto) 0.0 03/20/20 09:00: NT-Pro-B Natriuret Pep 94.8 03/20/20 09:00: CK-MB (CK-2) < 0.2, Troponin I < 0.01 03/20/20 11:20: D-Dimer 0.43 03/21/20 05:15: WBC 1.0 L* D, RBC 4.72, Hgb 13.4 L D, Hct 40.5 L, MCV 85.9, MCH 28.4, MCHC 33.0, RDW 13.4, Plt Count 107 L, MPV 8.7, Neut % (Auto) 52.9, Lymph % (Auto) 39.3, [place] % (Auto) 6.6, Eos % (Auto) 0.8, Baso % (Auto) 0.4, Neut # (Auto) 0.5 L*, Lymph # (Auto) 0.4 L, [place] # (Auto) 0.1, Eos # (Auto) 0.0, Baso # (Auto) 0.0 03/21/20 05:15: Sodium 137, Potassium 4.3, Chloride 104, Carbon Dioxide 26, Anion Gap 11.3, BUN 22 H, Creatinine 1.60 H, Estimated Creat Clear 84, Estimated GFR 44 L, Est GFR ( Amer) 54 L, Glucose 108 H, Calcium 8.1 L, Magnesium 2.1, Total Bilirubin 0.4, AST 39 D, ALT 26 D, Alkaline Phosphatase 51, Total Protein 6.2 L, Albumin 3.7 D, Globulin 2.5, Albumin/Globulin Ratio 1.5 I & O for Last 24 hours: Intake & Output 03/18/20 03/19/20 03/20/20 03/21/20 11:59 11:59 11:59 11:59 Intake Total 2732 / 2732 Output Total 350 / 350 Balance 2382 / 2382 Weight 285 lb 267 lb 8 oz Microbiology Reports for the Last 24 Hours: Microbiology 03/20/20 07:37 Nasopharyngeal Coronavirus COVID-19 PCR - Final Narrative: Patient is alert, oriented x3. Oropharynx clear, no lesions. Heart rate regular, lungs clear. No rash noted. No stigmata of petechiae. Abdomen soft nontender. No bruising. No edema or clubbing. Neurologically intact. Assessment and Plan (1) ELIZABETH (acute kidney injury) Status: Acute Category: Medical Code(s): N17.9 - Acute kidney failure, unspecified (2) COVID-19 Status: Acute Category: Medical Code(s): U07.1 - COVID-19 (3) Leukopenia Status: Acute Category: Medical Code(s): D72.819 - Decreased white blood cell count, unspecified Repeat blood counts tonight, cell lines otherwise look fairly good although platelet count is mildly suppressed. Ask Dr. Berumen for her opinion regarding viral suppression versus other etiology? Possible side effect of levofloxacin? Continue current therapy, fluid bolus for mildly low blood pressure.
[2020-03-21 08:57] LABS: Lymphocytes % 32 % (10-50); Monocytes % 12 % (2-9); Neutrophils % 54 % (42-76); Platelet Estimate Slight Decrease; RBC Morphology Normal; Total Cells Counted 100
--- NOTE | 2020-03-21 11:00 | HMH.PHAINT ---
MEDICATION RECONCILIATION COMPLETED ON PATIENT USING EXTERNAL FILL HISTORY FROM PHARMACY AND LISTS FROM PODIATRY/CARDIOLOGY OFFICES. -PRICILLA FAGAN, BRENDAD
--- NOTE | 2020-03-21 12:34 | PC.NURSE ---
Spoke with Jared in specialty clinic who states they are aware of hematology consult.
--- NOTE | 2020-03-21 16:04 | HMH.CONS ---
*Admission Date: 03/20/20 *Reason for consult:: leukopenia *History of present illness: 59 yo wm admitted for sob dx with COVID. I am ask regarding leukopenia. I did not see the pt but reviewed his chart. today his total wbc is 1.0. yesterday it was 2.5. the pt had noted lymphopenia yesterday and today has neutropenia and lymphopenia. I suspect this is covid related as lymphopenia is well known effect due to covid. I reviewed prior labs and in jan his wbc was normal. I expect as his illness improves the wbc will also normalize. he is also noted to have mild thrombocytopenia also suspected related to acute illness. if this persists recommend sending peripheral blood for flow cytometry. since he is neutropenic if febrile recommend to broaden antibiotic coverage. please call with questions. Nicky Berumen MD [facility] History Medical History: Reports:: Aneurysm, Congestive Heart Failure, Coronary Artery Disease, Depression, Gastroesophageal Reflux Disease(GERD), Hyperlipidemia, Hypertension Denies:: Cancer, Chronic Obstructive Pulmonary Disease (COPD), Diabetes Mellitus Type 1, Diabetes Mellitus Type 2, Internal Pacemaker, MRSA, Myocardial Infarction, Seizures *Have you ever received a pneumonia vaccine?: No *Have you received a flu vaccine this season?: No Laterality Cases: Left: Other, Right: Arthroscopy Knee Other Surgeries: Yes: Appendectomy, Colonoscopy, Coronary Stent, Other. No: Pacemaker Amputation: No Fractures: No - *Social History Last grade of school completed: 9th or 10th Smoking Status: Never smoker Tobacco Type: cigarettes Alcohol Intake: never Alcohol Intake Frequency:: other Substance Use Type: denies use *Occupational Status:: disabled Housing: house Household Members: spouse *Travel in the last 8 weeks: None - Psychiatric History Expresses thoughts of harming self/others: None Pschychiatric History:: Reports:: Depression Family Hx:: Coronary Artery Disease, Hyperlipidemia, Hypertension Review of Systems - Review of Systems Review of systems:: unable to obtain Meds Home Medications Medication Instructions Recorded Confirmed Type bupropion HCl 150 mg tablet,12 hr 150 mg PO BID 05/18/17 03/20/20 History sustained-release trazodone 150 mg tablet 150 mg PO HS tab 05/18/17 03/20/20 History amlodipine 5 mg tablet 5 mg PO DAILY #90 tab 03/08/19 03/20/20 Rx bisoprolol fumarate 10 mg tablet 10 mg PO DAILY #90 tab 04/28/19 03/20/20 Rx quetiapine 300 mg tablet 150 mg PO HS tab 05/16/19 03/20/20 History sertraline 100 mg tablet 100 mg PO DAILY tab 05/16/19 03/20/20 History Furosemide [Furosemide 80mg Tab] 80 mg PO DAILY 07/03/19 03/20/20 History Mirabegron [Myrbetriq] 25 mg PO DAILY 07/03/19 03/20/20 History Lovastatin 40 mg PO DAILY 01/05/20 03/20/20 History Aspirin [Low Dose Aspirin EC] 81 mg PO DAILY 03/20/20 03/20/20 History lisinopriL [Prinivil 20mg Tablet] 20 mg PO BID 03/20/20 03/20/20 History Diclofenac Sodium [Diclofenac Sod 1 applicatio TP QIDP PRN 03/21/20 03/21/20 History 100gm Topical Gel] Fluticasone/Vilanterol [Breo 1 puff IH DAILY 03/21/20 03/21/20 History Ellipta 200-25 Mcg INH] Ranolazine [Ranolazine ER] 500 mg PO BID 03/21/20 03/21/20 History Ticagrelor [Brilinta 90mg 90 mg PO BID 03/21/20 03/21/20 History Tablet] Allergies Allergy/AdvReac Type Severity Reaction Status Date / Time No Known Allergies Allergy Verified 03/11/20 14:50 Exam Vital signs and Labs for Last 24 Hours: Temp Pulse Resp BP Pulse Ox 98.9 F 70 20 99/55 L 91 L 03/21/20 12:00 03/21/20 12:00 03/21/20 12:00 03/21/20 12:00 03/21/20 12:00 Laboratory Results - last 24 hr 03/21/20 05:15: WBC 1.0 L* D, RBC 4.72, Hgb 13.4 L D, Hct 40.5 L, MCV 85.9, MCH 28.4, MCHC 33.0, RDW 13.4, Plt Count 107 L, MPV 8.7, Neut % (Auto) 52.9, Lymph % (Auto) 39.3, [place] % (Auto) 6.6, Eos % (Auto) 0.8, Baso % (Auto) 0.4, Neut # (Auto) 0.5 L*, Lymph # (Auto) 0.4 L, [place] # (Auto) 0.1, Eos # (Auto) 0.0, Baso #
[2020-03-21 17:57] LABS: CK-MB 0 % (0-3); CK-MM 100 % (97-100); Creatine Kinase,Total,Serum 130 U/L (41-331); Macro Type 1 0 % (Not Observed); Macro Type 2 0 % (Not Observed)
--- NOTE | 2020-03-21 18:29 | PC.NURSE ---
Pt remains on 2L NC with sats running 90-92. Lungs are diminished t/o. He ambulates independently to the bathroom and tolerates well. Bruising noted to abdomen above umbilicus on both sides. Pt states it was there on admission. Appetite is OK. Pt had a bed bath and complete linen change today. He was a little hypotensive this morning, 1L bolus administered per MD with no change in BP until around 1530. BP at this time WNL. He remained afebrile this shift. IV to lac is patent and infusing ns@100mls/hr. Still unable to obtain sputum as pt has occasional unproductive cough. Specimen cup at bedside. No complaints verbalized. Safety measures in place, call light within reach. Will continue to monitor.
[2020-03-21 18:32] LABS: Basophils % 0.1 % (0.1-2.0); Eosinophils % 0.8 % (0.1-12.0); Hematocrit 39.2 % (42.0-52.0); Lymphocytes # 0.4 K/mm3 (0.7-4.5); Mean Corpuscular HGB Conc 33.1 g/dL (31.8-35.4); Mean Corpuscular Hemoglobin 28.4 pg (27.0-31.2); Mean Corpuscular Volume 85.6 fl (80-94); Mean Platelet Volume 8.7 fl (7.4-10.4); Monocytes # 0.1 K/mm3 (0.1-1.0); Monocytes % 3.2 % (1.7-9.3); Neutrophils # 1.2 K/mm3 (1.8-7.8); Neutrophils % 73.8 % (37.0-80.0); Platelet Count 108 K/mm3 (142-424); Red Blood Count 4.58 M/mm3 (4.60-6.20); Red Cell Distribution Width 13.7 % (11.5-17.5); White Blood Count 1.7 K/mm3 (4.8-10.8)
[2020-03-22] VITALS (8 sets, daily range): BP systolic 95–157; BP diastolic 59–70; PULSE 60–90; RESP 15–20; TEMP 36.4–37.1; O2SAT 88–93; BMI 35.7
[2020-03-22 06:27] LABS: Basophils % 0.1 % (0.1-2.0); Eosinophils % 0.2 % (0.1-12.0); Hematocrit 40.8 % (42.0-52.0); Hemoglobin 13.4 g/dL (14.1-18.0); Lymphocytes # 0.6 K/mm3 (0.7-4.5); Lymphocytes % 20.3 % (10-50); Mean Corpuscular HGB Conc 32.7 g/dL (31.8-35.4); Mean Corpuscular Hemoglobin 28.1 pg (27.0-31.2); Mean Corpuscular Volume 85.9 fl (80-94); Monocytes # 0.1 K/mm3 (0.1-1.0); Monocytes % 3.9 % (1.7-9.3); Neutrophils # 2.1 K/mm3 (1.8-7.8); Neutrophils % 75.6 % (37.0-80.0); Platelet Count 114 K/mm3 (142-424); Red Blood Count 4.76 M/mm3 (4.60-6.20); Red Cell Distribution Width 13.7 % (11.5-17.5); White Blood Count 2.8 K/mm3 (4.8-10.8)
[2020-03-22 06:28] LABS: Chloride 110 mmol/L (98-107); Potassium 3.9 mmoL/L (3.5-5.1); Sodium 141 mmol/L (136-145)
[2020-03-22 06:31] LABS: Anion Gap 7.9 mEq/L (5-15); Blood Urea Nitrogen 17 mg/dl (9-20); Calcium 8.3 mg/dl (8.4-10.2); Carbon Dioxide 27 mmol/L (22.0-30.0); Creatinine Clearance Estimated 113 mL/min (50-200); Estimated Glomerular Filt Rate 62 ml/min (>60); GFR (African American) 75 ML/MIN (>60); Glucose 97 mg/dl (74-100)
--- NOTE | 2020-03-22 06:51 | PC.NURSE ---
shift summary, pt has been restless t/o shift, O2 sat 93% on 2L NC, no complaints of SOA or chest pain, has complained of cough, dry non-productive cough present, lungs sounds diminished on auscultation, pt aware of sputum sample needed, sample cup at bedside, monitor technician has shown IVCD and 1st degree block, systolic BP 98-115, HR 63-70, has ambulated independently to bathroom
--- NOTE | 2020-03-22 07:07 | PC.NURSE ---
Dr. Muniz also made aware of prelim blood culture results, said to hold Zosyn order that Neus had given
--- NOTE | 2020-03-22 08:37 | PC.NURSE ---
PATIENT IS NOTED TO BE ALERT AND ORIENTED X4. PATIENT IS ALSO NOTED TO HAVE SLIGHT ANXIETY. HE HAS BEEN CALLING FAMILY AND STATING HE WAS DYING. CALLED VERY UPSET AND WITH PATIENT PERMISSION UPDATED ON PATIENTS STABLE CONDITION. HE REMAINS ON 2L O2 AT THIS TIME. ASKED IF ROSARIO NEEDED TO SEE THIS PATIENT AND I EDUCATED AT THIS TIME FOCUS WAS ON RESPIRATORY BUT WOULD MENTION TO MD ABOUT HER REQUEST FOR ROSARIO. WHEN ASKED WHY SHE FELT ROSARIO NEEDED TO SEE HIM SHE STATED WELL HIS HEART IS BAD . HE STATES HE IS LIVING ON BORROWED TIME AND WONDERING WHEN HIS TICKER IS GOING TO GIVE OUT. WHEN ASKED HOW HE WAS FEELING STATED WELL I AM A LITTLE THIRSTY. WHEN ASKED WHY HE FEELS LIKE HE IS GOING TO PATIENT STATES WELL I HAVEN'T SLEPT WELL THE LAST COUPLE NIGHTS, STATED HE WAS JUST TRYING TO PREPARE HIS FAMILY FOR HIS . PATIENT WAS UPDATED ON CURRENT PLAN OF CARE AND HIS CURRENT CONDITION.
[2020-03-22 08:59] LABS: CK-BB 0 % (0)
[2020-03-22 09:26] LABS: Procalcitonin 0.053 ng/mL (0.0-2.0)
--- NOTE | 2020-03-22 09:47 | HMH.ACPN2 ---
Internal Medicine - PN: Subj *Date: 03/22/20 *Time: 13:24 Interval history: Interviewed patient this afternoon, complains of still having no taste and therefore not interested in eating. Denies significant shortness of breath, chest pain, nausea, vomiting. Does have some mild confusion, gotten worse with steroid use. Has been calling family and telling them he is dying . Overall hemodynamically stable. Afebrile for more than 24 hours. No increase in oxygen requirement. Labs reviewed this morning, some improvement in his leukopenia. Exam Vital signs and Labs for Last 24 Hours: Temp Pulse Resp BP Pulse Ox 98.6 F 90 20 157/70 H 93 L 03/22/20 07:45 03/22/20 08:00 03/22/20 07:45 03/22/20 07:45 03/22/20 07:58 Laboratory Results - last 24 hr 03/20/20 09:00: Total Creatine Kinase 130, CK-MM (CK-3) % 100, CK-MB (CK-2) % 0, CK-BB (CK-1) % 0, Macro CK Type I 0, Macro CK Type II 0 03/21/20 18:20: WBC 1.7 L* D, RBC 4.58 L, Hgb 13.0 L, Hct 39.2 L, MCV 85.6, MCH 28.4, MCHC 33.1, RDW 13.7, Plt Count 108 L, MPV 8.7, Neut % (Auto) 73.8, Lymph % (Auto) 22.0, [place] % (Auto) 3.2, Eos % (Auto) 0.8, Baso % (Auto) 0.1, Neut # (Auto) 1.2 L, Lymph # (Auto) 0.4 L, [place] # (Auto) 0.1, Eos # (Auto) 0.0, Baso # (Auto) 0.0 03/22/20 06:00: WBC 2.8 L D, RBC 4.76, Hgb 13.4 L, Hct 40.8 L, MCV 85.9, MCH 28.1, MCHC 32.7, RDW 13.7, Plt Count 114 L, MPV 9.0, Neut % (Auto) 75.6, Lymph % (Auto) 20.3, [place] % (Auto) 3.9, Eos % (Auto) 0.2, Baso % (Auto) 0.1, Neut # (Auto) 2.1, Lymph # (Auto) 0.6 L, [place] # (Auto) 0.1, Eos # (Auto) 0.0, Baso # (Auto) 0.0 03/22/20 06:00: Sodium 141, Potassium 3.9, Chloride 110 H, Carbon Dioxide 27, Anion Gap 7.9, BUN 17, Creatinine 1.20 D, Estimated Creat Clear 113, Estimated GFR 62, Est GFR ( Amer) 75 D, Glucose 97, Calcium 8.3 L 03/22/20 06:00: Procalcitonin 0.053 I & O for Last 24 hours: Intake & Output 03/19/20 03/20/20 03/21/20 03/22/20 23:59 23:59 23:59 23:59 Intake Total 502 / 502 4615 / 4615 1246 / 1246 Output Total 350 / 350 800 / 800 550 / 550 Balance 152 / 152 3815 / 3815 696 / 696 Weight 119.295 kg 121.336 kg 122.425 kg Microbiology Reports for the Last 24 Hours: Microbiology 03/20/20 11:20 Blood - Random Blood Culture - Preliminary 03/20/20 11:20 Blood - Random Blood Culture - Preliminary - Constitutional no acute distress, obese - *Routine HEENT Exam Head: Present: normocephalic Eye: Present: EOMI, PERRL ENT: Present: mucous membranes moist Comments: edentulous - *Routine Neck Exam Present: supple. Absent: lymphadenopathy - *Routine Respiratory Exam Present: CTA bilaterally - *Routine Cardiovascular Exam Present: RRR - *Routine Abdominal Exam Present: soft, normoactive bowel sounds. Absent: tenderness - *Routine Extremities Exam Absent: cyanosis, clubbing, edema - *Routine Skin Exam Present: warm. Absent: rash - *Routine Neurological Exam Present: alert, oriented X3 Assessment and Plan (1) ELIZABETH (acute kidney injury) Status: Acute Category: Medical Code(s): N17.9 - Acute kidney failure, unspecified (2) COVID-19 Status: Acute Category: Medical Code(s): U07.1 - COVID-19 (3) Leukopenia Status: Acute Category: Medical Code(s): D72.819 - Decreased white blood cell count, unspecified (4) Acute hypoxemic respiratory failure due to COVID-19 Status: Acute Category: Medical Code(s): U07.1 - COVID-19; J96.01 - Acute respiratory failure with hypoxia Given new oxygen requirement and positive COVID-19 infection - Assessment and plan all Dx Assessment and Plan for all problems:: 59-year-old male with COVID-19 pneumonia. Overall stable at this time. Continue current regimen with vitamins and steroids. Patient alert and oriented however having difficult time being isolated. No acute psychological needs however. We will continue home medications for chronic conditions. If remains stable, anticipate discharge in the coming
--- NOTE | 2020-03-22 11:51 | DIET.NUTRFU ---
Pt with poor appetite, PO intakes 50%, poor acceptance nutritional supplements. Diet altered from cardiac to low sodium, this provides further sodium restriction appropriate for pt's hx CHF but no fat/cho restriction which is not indicated at this time. Weight up 2#. Continuing to monitor.
--- NOTE | 2020-03-22 12:56 | PC.NURSE ---
md gave the okay to dc monitor technician. patient refusing to keep it on. fluids are also disconected at this time because he kept unhooking and getting up. he also requested them off while he ate. is aware as well.
--- NOTE | 2020-03-22 16:43 | PC.NURSE ---
Patient has been very pleasant today. He is Alert and oriented x4 but he has been confused at times, in those times of confusion he called his stating that he was going to . We talked to the patient and let him know that he was doing great with care. Since then he has been calm. Throughout the day we have had to walk the patient back in his room and remind him that he can not be out of his room on this unit without his mask. Patient has been non-compliant with wearing his required 2L of oxygen today but has maintained most of the day in the high 80's to low 90's O2 stat. Patients lung sounds are diminished. He denies any pain. He has been non-compliant with his fluid therapy on NS @100ml provider was notified. Patient is independent and has been using the toilet to void and for BM. I told the patient that he should be using the urinal so his urine output in documented but I have received no response of understanding from the patient and he continues to void in the toilet. Will continue to monitor the patient.
[2020-03-23] VITALS (10 sets, daily range): BP systolic 112–135; BP diastolic 56–68; PULSE 71–94; RESP 18–30; TEMP 36.7–38.2; O2SAT 83–92; BMI 35.2
--- NOTE | 2020-03-23 04:01 | PC.NURSE ---
PT A&OX4 lungs diminished t/o. O2 sats 92-95% on 2L. pt ambulates to BR independently. pt has rested quietly throughout shift
--- NOTE | 2020-03-23 04:23 | PC.NURSE ---
noted @ 4am vitals pt 02 dropped to 83 % pt had pulled off O2. replaced 02 pt unable to recover, 02 turned up to 3L O2 sats remain @ 85 % pt then turned up to 5L humidification added. pt O2 was then 90-92 % on 5L. paged dr pacheco new orders obtained.
--- NOTE | 2020-03-23 05:30 | PC.NURSE ---
spoke with Marques from pharmacy for vancomycin consult. 2250mg for first dose
[2020-03-23 05:57] LABS: Basophils % 0.2 % (0.1-2.0); Eosinophils % 0.1 % (0.1-12.0); Hematocrit 40.5 % (42.0-52.0); Hemoglobin 13.4 g/dL (14.1-18.0); Lymphocytes # 0.6 K/mm3 (0.7-4.5); Lymphocytes % 17.5 % (10-50); Mean Corpuscular HGB Conc 33.1 g/dL (31.8-35.4); Mean Corpuscular Volume 84.6 fl (80-94); Mean Platelet Volume 8.9 fl (7.4-10.4); Monocytes # 0.1 K/mm3 (0.1-1.0); Monocytes % 4.5 % (1.7-9.3); Neutrophils # 2.5 K/mm3 (1.8-7.8); Neutrophils % 77.6 % (37.0-80.0); Platelet Count 126 K/mm3 (142-424); Red Blood Count 4.79 M/mm3 (4.60-6.20); White Blood Count 3.2 K/mm3 (4.8-10.8)
[2020-03-23 06:03] LABS: Alanine Aminotransferase 30 U/L (12-78); Albumin Level 3.7 g/dl (3.5-5.0); Albumin/Globulin Ratio 1.4 (1.1-1.8); Alkaline Phosphatase 61 U/L (38-126); Anion Gap 11.6 mEq/L (5-15); Aspartate Amino Transferase 50 U/L (17-59); Bilirubin,Total 0.7 mg/dl (0.2-1.3); Blood Urea Nitrogen 12 mg/dl (9-20); Calcium 8.7 mg/dl (8.4-10.2); Carbon Dioxide 25 mmol/L (22.0-30.0); Chloride 108 mmol/L (98-107); Creatinine Clearance Estimated 111 mL/min (50-200); Estimated Glomerular Filt Rate 62 ml/min (>60); GFR (African American) 75 ML/MIN (>60); Globulin 2.7 g/dL (1.3-3.2); Glucose 96 mg/dl (74-100); Potassium 3.6 mmoL/L (3.5-5.1); Sodium 141 mmol/L (136-145); Total Protein,Serum 6.4 g/dl (6.3-8.2)
--- NOTE | 2020-03-23 06:54 | XR_ITS ---
PROCEDURE: XR CHEST PORTABLE CLINICAL HISTORY: fever COMPARISON: CR XR CHEST PORTABLE from 07/04/2019 CR XR CHEST 2V from 07/17/2019 CR XR CHEST PORTABLE from 03/20/2020 FINDINGS: The cardiomediastinal silhouette and pulmonary vascularity are within normal limits considering a poor inspiration. There is a questionable ill-defined opacity in the left perihilar and infrahilar region probably representing atelectasis though a minimal pneumonic infiltrate cannot be excluded. The poor inspiration makes evaluation difficult there is no obvious pleural fluid. . No acute bony abnormalities. IMPRESSION: Poor inspiratory effort question left perihilar ill-defined infiltrate versus atelectasis versus crowding of normal vascular markings Dictated by: Dr. Joseph Marcano MD 03/23/2020 08:06 Dr. Joseph Marcano MD in [facility] 03/23/2020 08:06
--- NOTE | 2020-03-23 09:33 | HMH.PHACONS ---
- Pharmacy Consult Date: 03/23/20 Time: 09:33 Referring provider: DR. GRIMES Reason for Consult:: VANCOMYCIN DOSING Allergies and ADEs:: Allergies Allergy/AdvReac Type Severity Reaction Status Date / Time No Known Allergies Allergy Verified 03/11/20 14:50 Home Medications:: Home Medications Medication Instructions Recorded Confirmed Type bupropion HCl 150 mg tablet,12 hr 150 mg PO BID 05/18/17 03/20/20 History sustained-release trazodone 150 mg tablet 150 mg PO HS tab 05/18/17 03/20/20 History amlodipine 5 mg tablet 5 mg PO DAILY #90 tab 03/08/19 03/20/20 Rx bisoprolol fumarate 10 mg tablet 10 mg PO DAILY #90 tab 04/28/19 03/20/20 Rx quetiapine 300 mg tablet 150 mg PO HS tab 05/16/19 03/20/20 History sertraline 100 mg tablet 100 mg PO DAILY tab 05/16/19 03/20/20 History Furosemide [Furosemide 80mg Tab] 80 mg PO DAILY 07/03/19 03/20/20 History Mirabegron [Myrbetriq] 25 mg PO DAILY 07/03/19 03/20/20 History Lovastatin 40 mg PO DAILY 01/05/20 03/20/20 History Aspirin [Low Dose Aspirin EC] 81 mg PO DAILY 03/20/20 03/20/20 History lisinopriL [Prinivil 20mg Tablet] 20 mg PO BID 03/20/20 03/20/20 History Diclofenac Sodium [Diclofenac Sod 1 applicatio TP QIDP PRN 03/21/20 03/21/20 History 100gm Topical Gel] Fluticasone/Vilanterol [Breo 1 puff IH DAILY 03/21/20 03/21/20 History Ellipta 200-25 Mcg INH] Ranolazine [Ranolazine ER] 500 mg PO BID 03/21/20 03/21/20 History Ticagrelor [Brilinta 90mg 90 mg PO BID 03/21/20 03/21/20 History Tablet] Height: 1.85 m Weight: 120.383 kg Laboratory Results:: Laboratory Results - last 24 hr 03/23/20 05:40: WBC 3.2 L, RBC 4.79, Hgb 13.4 L, Hct 40.5 L, MCV 84.6, MCH 28.0, MCHC 33.1, RDW 14.0, Plt Count 126 L, MPV 8.9, Neut % (Auto) 77.6, Lymph % (Auto) 17.5, [place] % (Auto) 4.5, Eos % (Auto) 0.1, Baso % (Auto) 0.2, Neut # (Auto) 2.5, Lymph # (Auto) 0.6 L, [place] # (Auto) 0.1, Eos # (Auto) 0.0, Baso # (Auto) 0.0 03/23/20 05:40: Sodium 141, Potassium 3.6, Chloride 108 H, Carbon Dioxide 25, Anion Gap 11.6, BUN 12 D, Creatinine 1.20, Estimated Creat Clear 111, Estimated GFR 62, Est GFR ( Amer) 75, Glucose 96, Calcium 8.7, Total Bilirubin 0.7, AST 50 D, ALT 30, Alkaline Phosphatase 61, Total Protein 6.4, Albumin 3.7, Globulin 2.7, Albumin/Globulin Ratio 1.4 Medical History: Reports:: Aneurysm, Congestive Heart Failure, Coronary Artery Disease, Depression, Gastroesophageal Reflux Disease(GERD), Hyperlipidemia, Hypertension Denies:: Cancer, Chronic Obstructive Pulmonary Disease (COPD), Diabetes Mellitus Type 1, Diabetes Mellitus Type 2, Internal Pacemaker, MRSA, Myocardial Infarction, Seizures Assessment and Plan (1) ELIZABETH (acute kidney injury) Status: Acute Category: Medical Code(s): N17.9 - Acute kidney failure, unspecified (2) COVID-19 Status: Acute Category: Medical Code(s): U07.1 - COVID-19 (3) Leukopenia Status: Acute Category: Medical Code(s): D72.819 - Decreased white blood cell count, unspecified (4) Acute hypoxemic respiratory failure due to COVID-19 Status: Acute Category: Medical Code(s): U07.1 - COVID-19; J96.01 - Acute respiratory failure with hypoxia - Assessment and plan all Dx Assessment and Plan for all problems:: BASED ON PATIENT FACTORS, RECOMMEND INITIATING VANCOMYCIN AT 2,000MG EVERY 12 HOURS. PATIENT RECEIVED ONE TIME DOSE OF 2,250MG VANCOMYCIN THIS MORNING. PHARMACY WILL MONITOR AND ADJUST DOSE APPROPRIATE. -PRICILLA FAGAN PHARMD
--- NOTE | 2020-03-23 10:17 | HMH.ACPN2 ---
Internal Medicine - PN: Subj *Date: 03/23/20 *Time: 10:17 Interval history: Overnight patient developed a fever over 100.5 degrees. Also had some coughing, abdominal pain remains the same. He has had some periods where he is a little bit disoriented, not too far from his baseline but is quickly reoriented. Remains on an oxygen requirement. Exam Vital signs and Labs for Last 24 Hours: Temp Pulse Resp BP Pulse Ox 100.8 F H 94 H 26 H 131/62 89 L 03/23/20 04:15 03/23/20 04:00 03/23/20 05:00 03/23/20 04:00 03/23/20 08:00 Laboratory Results - last 24 hr 03/23/20 05:40: WBC 3.2 L, RBC 4.79, Hgb 13.4 L, Hct 40.5 L, MCV 84.6, MCH 28.0, MCHC 33.1, RDW 14.0, Plt Count 126 L, MPV 8.9, Neut % (Auto) 77.6, Lymph % (Auto) 17.5, [place] % (Auto) 4.5, Eos % (Auto) 0.1, Baso % (Auto) 0.2, Neut # (Auto) 2.5, Lymph # (Auto) 0.6 L, [place] # (Auto) 0.1, Eos # (Auto) 0.0, Baso # (Auto) 0.0 03/23/20 05:40: Sodium 141, Potassium 3.6, Chloride 108 H, Carbon Dioxide 25, Anion Gap 11.6, BUN 12 D, Creatinine 1.20, Estimated Creat Clear 111, Estimated GFR 62, Est GFR ( Amer) 75, Glucose 96, Calcium 8.7, Total Bilirubin 0.7, AST 50 D, ALT 30, Alkaline Phosphatase 61, Total Protein 6.4, Albumin 3.7, Globulin 2.7, Albumin/Globulin Ratio 1.4 I & O for Last 24 hours: Intake & Output 03/20/20 03/21/20 03/22/20 03/23/20 11:59 11:59 11:59 11:59 Intake Total 2732 / 2732 3871 / 3871 2119 / 2119 Output Total 350 / 350 1700 / 1700 2300 / 2300 Balance 2382 / 2382 2171 / 2171 -181 / -181 Weight 285 lb 267 lb 8 oz 269 lb 14.4 oz 265 lb 6.4 oz Microbiology Reports for the Last 24 Hours: Microbiology 03/20/20 11:20 Blood - Random Blood Culture - Preliminary Staphylococcus epidermidis 03/20/20 11:20 Blood - Random Blood Culture - Preliminary Gram Positive Cocci - Constitutional no acute distress - *Routine HEENT Exam Head: Present: normocephalic Eye: Present: EOMI, PERRL ENT: Present: mucous membranes moist - *Routine Neck Exam Present: supple. Absent: lymphadenopathy - *Routine Respiratory Exam Present: rales, rhonchi Comments: In the right middle and lower lung field - *Routine Cardiovascular Exam Present: RRR - *Routine Abdominal Exam Present: soft, normoactive bowel sounds. Absent: tenderness - *Routine Extremities Exam Absent: cyanosis, clubbing, edema - *Routine Skin Exam Present: warm. Absent: rash - *Routine Neurological Exam Present: alert, oriented X3 Assessment and Plan (1) ELIZABETH (acute kidney injury) Status: Acute Category: Medical Code(s): N17.9 - Acute kidney failure, unspecified (2) COVID-19 Status: Acute Category: Medical Code(s): U07.1 - COVID-19 (3) Leukopenia Status: Acute Category: Medical Code(s): D72.819 - Decreased white blood cell count, unspecified (4) Acute hypoxemic respiratory failure due to COVID-19 Status: Acute Category: Medical Code(s): U07.1 - COVID-19; J96.01 - Acute respiratory failure with hypoxia (5) Lobar pneumonia Status: Acute Category: Medical Code(s): J18.1 - Lobar pneumonia, unspecified organism Developing lobar pneumonia, cover for staphylococcal infection given his blood cultures. Azithromycin and Rocephin. Continue current therapy.
--- NOTE | 2020-03-23 12:14 | PC.NURSE ---
relayed to md patient was requiring 5l o2 and only sating about 86-88%. stated to order 40mg iv lasix once
--- NOTE | 2020-03-23 13:09 | HMH.ACPN ---
Internal Medicine - PN: Subj *Date: 03/23/20 *Time: 13:09 Exam Vital signs and Labs for Last 24 Hours: Temp Pulse Resp BP Pulse Ox 100.0 F H 84 20 135/65 90 L 03/23/20 12:00 03/23/20 12:00 03/23/20 12:00 03/23/20 12:00 03/23/20 12:00 Laboratory Results - last 24 hr 03/23/20 05:40: WBC 3.2 L, RBC 4.79, Hgb 13.4 L, Hct 40.5 L, MCV 84.6, MCH 28.0, MCHC 33.1, RDW 14.0, Plt Count 126 L, MPV 8.9, Neut % (Auto) 77.6, Lymph % (Auto) 17.5, [place] % (Auto) 4.5, Eos % (Auto) 0.1, Baso % (Auto) 0.2, Neut # (Auto) 2.5, Lymph # (Auto) 0.6 L, [place] # (Auto) 0.1, Eos # (Auto) 0.0, Baso # (Auto) 0.0 03/23/20 05:40: Sodium 141, Potassium 3.6, Chloride 108 H, Carbon Dioxide 25, Anion Gap 11.6, BUN 12 D, Creatinine 1.20, Estimated Creat Clear 111, Estimated GFR 62, Est GFR ( Amer) 75, Glucose 96, Calcium 8.7, Total Bilirubin 0.7, AST 50 D, ALT 30, Alkaline Phosphatase 61, Total Protein 6.4, Albumin 3.7, Globulin 2.7, Albumin/Globulin Ratio 1.4 I & O for Last 24 hours: Intake & Output 03/20/20 03/21/20 03/22/20 03/23/20 23:59 23:59 23:59 23:59 Intake Total 502 / 502 4615 / 4615 2191 / 2191 1414 / 1414 Output Total 350 / 350 800 / 800 1300 / 1300 1900 / 1900 Balance 152 / 152 3815 / 3815 891 / 891 -486 / -486 Weight 119.295 kg 121.336 kg 122.425 kg 120.383 kg Microbiology Reports for the Last 24 Hours: Microbiology 03/20/20 11:20 Blood - Random Blood Culture - Preliminary Staphylococcus epidermidis 03/20/20 11:20 Blood - Random Blood Culture - Preliminary Gram Positive Cocci Assessment and Plan (1) ELIZABETH (acute kidney injury) Status: Acute Category: Medical Code(s): N17.9 - Acute kidney failure, unspecified (2) COVID-19 Status: Acute Category: Medical Code(s): U07.1 - COVID-19 (3) Leukopenia Status: Acute Category: Medical Code(s): D72.819 - Decreased white blood cell count, unspecified (4) Acute hypoxemic respiratory failure due to COVID-19 Status: Acute Category: Medical Code(s): U07.1 - COVID-19; J96.01 - Acute respiratory failure with hypoxia (5) Lobar pneumonia Status: Acute Category: Medical Code(s): J18.1 - Lobar pneumonia, unspecified organism The patient's infection will respond to the chosen ABx?: Yes Is the patient receiving the right drug, dose, and route?: Yes Could a more targeted ABx be ordered?: No
--- NOTE | 2020-03-23 18:16 | PC.NURSE ---
End of shift note. Patient has been sating low throughout the day with his o2. He ray been on 5L NC most of the day. He has had episodes of coughing spells finding it hard to catch his breath. The patient wanted to take a bath so the nurses assisted the patient with a full bath, linen change, oral care and clothing change. He has been up sitting in the chair and is breathing much better with no coughing spells. His o2 is currently sating at 90 on 5L in the chair. Patients lungs sounds are diminished on the left side with fine crackles on the right. MD stopped his NS@100 this morning. Patient has been alert and oriented x4 today. Patient is still up ad [place], using the urinal and toilet. Patient has been resting most of the day. Will continue to monitor. Patients room was cleaned and mopped but nurse.
--- NOTE | 2020-03-23 18:23 | PC.NURSE ---
spoke with dr. pacheco who stated through the night goal was to keep patient o2 sats >88%. if increased oxygen requirement was needed then he could be weaned up. venti/ or vapotherm if needed
[2020-03-24] VITALS (10 sets, daily range): BP systolic 101–124; BP diastolic 50–68; PULSE 78–92; RESP 19–24; TEMP 36.7–38.2; O2SAT 83–94; BMI 35.2
--- NOTE | 2020-03-24 01:27 | PC.NURSE ---
0110pt began to desat on 5L NC. 02 sats 83%. paged RT to place venti mask @ 50%. 0120 02 sat now 88-89%. pt state not SOA at this as long as he lays in bed
--- NOTE | 2020-03-24 02:19 | PC.NURSE ---
spoke with dr pacheco and gave pt status update. O2 goal above 80% and pt not tachypnea.
--- NOTE | 2020-03-24 04:26 | PC.NURSE ---
Pt A&OX4 lungs diminished t/o. pt 02 sats 88-91% on ventimask @ 5o%. pt has been medicated for fever and cough this shift per JUL. pt has had a couple episodes of coughing this shift. Pt c/o SOA upon exertion. pt has slept at intervals t/o shift
[2020-03-24 05:52] LABS: Basophils % 0.1 % (0.1-2.0); Eosinophils % 0.1 % (0.1-12.0); Hematocrit 39.7 % (42.0-52.0); Hemoglobin 13.1 g/dL (14.1-18.0); Lymphocytes # 0.6 K/mm3 (0.7-4.5); Lymphocytes % 15.6 % (10-50); Mean Corpuscular HGB Conc 32.9 g/dL (31.8-35.4); Mean Platelet Volume 8.6 fl (7.4-10.4); Monocytes # 0.2 K/mm3 (0.1-1.0); Monocytes % 4.4 % (1.7-9.3); Neutrophils # 3.2 K/mm3 (1.8-7.8); Neutrophils % 79.9 % (37.0-80.0); Platelet Count 144 K/mm3 (142-424); Red Blood Count 4.67 M/mm3 (4.60-6.20); Red Cell Distribution Width 13.9 % (11.5-17.5)
[2020-03-24 06:00] LABS: Alanine Aminotransferase 37 U/L (12-78); Albumin Level 3.5 g/dl (3.5-5.0); Albumin/Globulin Ratio 1.2 (1.1-1.8); Alkaline Phosphatase 59 U/L (38-126); Anion Gap 12.4 mEq/L (5-15); Aspartate Amino Transferase 62 U/L (17-59); Bilirubin,Total 0.6 mg/dl (0.2-1.3); Blood Urea Nitrogen 16 mg/dl (9-20); Calcium 8.7 mg/dl (8.4-10.2); Carbon Dioxide 27 mmol/L (22.0-30.0); Chloride 106 mmol/L (98-107); Creatinine Clearance Estimated 112 mL/min (50-200); Estimated Glomerular Filt Rate 62 ml/min (>60); GFR (African American) 75 ML/MIN (>60); Globulin 2.9 g/dL (1.3-3.2); Glucose 98 mg/dl (74-100); Potassium 3.4 mmoL/L (3.5-5.1); Sodium 142 mmol/L (136-145); Total Protein,Serum 6.4 g/dl (6.3-8.2)
--- NOTE | 2020-03-24 08:02 | XR_ITS ---
PROCEDURE: XR CHEST PORTABLE Referring Doctor: Nando Singh Patient Age:59Y CLINICAL HISTORY: worsening sats Bilateral pneumonia with probable covid pneumonia COMPARISON: CR XR CHEST 2V from 07/17/2019 CR XR CHEST PORTABLE from 03/20/2020 CR XR CHEST PORTABLE from 03/23/2020 FINDINGS: Portable semi-erect CXR performed today and compared to yesterday 03/23/2020 pCXR as well as 03/20/2020 pCXR.. Each of these portable chest are rather lordotic projection/comparable projection This series the chest film shows progressive decreased inspiration with progressive developing infiltrates bilaterally infiltrate. Today the diaphragm is only down to the anterior 4th rib today (versus below the anterior 5th rib Mar 2018 pCXR). This would suggest element of progressive hypoventilation and/and or atelectasis bilaterally currently. Also the pneumonic infiltrates becoming more apparent with patterns suggestive or supportive probable covid pneumonia. Right lung. Patchy area infiltrate has developed at the periphery of the right mid lung. Also atelectasis and suspect minimal patchy infiltrate right infrahilar region and medial right base along with diffuse due for subtle right perihilar infiltrate Left lung: Diffuse hazy opacity/suggesting diffuse infiltrate has become more evident along the periphery of left lung-most evident left mid lung and towards left base has. Minimal patchy infiltrate continues towards the left lung base above left hemidiaphragm. But no pleural effusions evident. Heart appears normal size but upper normal pulmonary vascularity in part accentuated by the less optimal inspiration but chest wall stable. IMPRESSION: Progressive bilateral infiltrates and atelectasis. Decreased inspiration with lower lung volume today versus recent previous pCXR studies Left chest:. Progressing diffuse low-density infiltrate throughout the periphery of the left lung. This become more apparent since yesterday CXR; along with the vague patchy infiltrate and atelectasis towards left lung base. Right chest: Progressive patchy region infiltrate the periphery of the right mid lung;.. Also suggestion of right perihilar infiltrate which is most notable right infrahilar region a and extending towards medial right lung base. Patterns suggestive or supportive probable covid pneumonia Dictated by: Karan Nicolas MD 03/24/2020 09:39 Karan Nicolas MD in [facility] 03/24/2020 09:39
[2020-03-24 08:33] LABS: NT Pro Brain Natriuretic Pep. 1140 pg/mL (0-125)
--- NOTE | 2020-03-24 08:39 | HMH.ACPN2 ---
Internal Medicine - PN: Subj *Date: 03/24/20 *Time: 08:39 Interval history: Through the night patient has had a slight increase in oxygen requirement, low-grade fevers. Blood pressure and pulse rates have been acceptable. Has been oriented. He has a baseline mild cognitive impairment that is been about the same as previous. He also has psychiatric disease which makes it somewhat difficult to get him to comprehend the isolation part of his current treatment. Regardless this morning he has no complaints, notes that he thinks he is breathing better, is on a facemask and thinks he does better with the nasal cannula. Exam Vital signs and Labs for Last 24 Hours: Temp Pulse Resp BP Pulse Ox 98.6 F 78 20 101/55 L 89 L 03/24/20 04:00 03/24/20 04:00 03/24/20 04:00 03/24/20 04:00 03/24/20 04:00 Laboratory Results - last 24 hr 03/24/20 05:15: WBC 4.0 L, RBC 4.67, Hgb 13.1 L, Hct 39.7 L, MCV 85.0, MCH 28.0, MCHC 32.9, RDW 13.9, Plt Count 144, MPV 8.6, Neut % (Auto) 79.9, Lymph % (Auto) 15.6, [place] % (Auto) 4.4, Eos % (Auto) 0.1, Baso % (Auto) 0.1, Neut # (Auto) 3.2, Lymph # (Auto) 0.6 L, [place]ane # (Auto) 0.2, Eos # (Auto) 0.0, Baso # (Auto) 0.0 03/24/20 05:15: Sodium 142, Potassium 3.4 L, Chloride 106, Carbon Dioxide 27, Anion Gap 12.4, BUN 16 D, Creatinine 1.20, Estimated Creat Clear 112, Estimated GFR 62, Est GFR ( Amer) 75, Glucose 98, Calcium 8.7, Total Bilirubin 0.6, AST 62 H, ALT 37, Alkaline Phosphatase 59, Total Protein 6.4, Albumin 3.5, Globulin 2.9, Albumin/Globulin Ratio 1.2 03/24/20 05:15: NT-Pro-B Natriuret Pep 1140 H I & O for Last 24 hours: Intake & Output 03/21/20 03/22/20 03/23/20 03/24/20 11:59 11:59 11:59 11:59 Intake Total 2732 / 2732 3871 / 3871 2119 / 2119 290 / 290 Output Total 350 / 350 1700 / 1700 2300 / 2300 1450 / 1450 Balance 2382 / 2382 2171 / 2171 -181 / -181 -1160 / -1160 Weight 267 lb 8 oz 269 lb 14.4 oz 265 lb 6.4 oz 266 lb 4 oz Microbiology Reports for the Last 24 Hours: Microbiology 03/20/20 11:20 Blood - Random Blood Culture - Preliminary Gram Positive Cocci 03/20/20 11:20 Blood - Random Blood Culture - Preliminary Staphylococcus epidermidis - Constitutional no acute distress - *Routine HEENT Exam Head: Present: normocephalic Eye: Present: EOMI, PERRL ENT: Present: mucous membranes moist - *Routine Neck Exam Present: supple. Absent: lymphadenopathy - *Routine Respiratory Exam Present: rhonchi, crackles (Minimal bibasilar crackles) - *Routine Cardiovascular Exam Present: RRR - *Routine Abdominal Exam Present: soft, normoactive bowel sounds. Absent: tenderness - *Routine Extremities Exam Absent: cyanosis, clubbing, edema - *Routine Skin Exam Present: warm. Absent: rash - *Routine Neurological Exam Present: alert, oriented X3 Assessment and Plan (1) ELIZABETH (acute kidney injury) Status: Acute Category: Medical Code(s): N17.9 - Acute kidney failure, unspecified (2) COVID-19 Status: Acute Category: Medical Code(s): U07.1 - COVID-19 (3) Leukopenia Status: Acute Category: Medical Code(s): D72.819 - Decreased white blood cell count, unspecified (4) Acute hypoxemic respiratory failure due to COVID-19 Status: Acute Category: Medical Code(s): U07.1 - COVID-19; J96.01 - Acute respiratory failure with hypoxia (5) Lobar pneumonia Status: Acute Category: Medical Code(s): J18.1 - Lobar pneumonia, unspecified organism - Assessment and plan all Dx Assessment and Plan for all problems:: Above-noted problems addressed: 1. Hypoxia issues-fairly typical for Covid patients. No evidence of ventilatory failure or tiring. Plan will be to continue supplemental oxygen. If he becomes significantly tachypneic or obtunded we would consider blood gas to measure for hypercapnia. Otherwise no indication for enhanced ventilatory therapy at this point. Patient does n
--- NOTE | 2020-03-24 09:21 | PC.NURSE ---
patient at this time on venti mask at 50%. did not tolerate nasal cannula at 5l. okay with sats greater then 80%. if patient appears to be struggling or not maintaining goal sats can place patient on vapotherm and wean as needed. currently sating 85-88% on the venti mask
--- NOTE | 2020-03-24 12:18 | PC.NURSE ---
Addendum entered by Nyla Christina RN 03/24/20 13:19: currently patient is satin 94-96% on 40 l and 80% fio2. will start to wean back down to keep sats greater than 80%. patient seemed to improve with sitting in chair. needing to keep room monitor on privacy mode. patient tends to pay a lot of attention to monitor and this causes anxiety. he is have no complaints. in no distress. encouraging to sit up in chair and have more intake Original Note: patient got up to bathroom and since has been unable to recover on the venti patient has not been tolerating leaving mask on. patient sats high 70s on the venti mask. patient switched over to vapotherm at this time. md is aware. patient is educated on taking breaths but at times patient appears to be almost holding breath. patient is not in any apparent distress. education attempted on taking breaths through nose and out mouth. However, patient continues to hold breaths at time, and seems to be intentionally belly breathing. when you ask him to take deep breaths he does not appear to comprehend.
--- NOTE | 2020-03-24 13:14 | PC.NURSE ---
for lunch patient did manage to eat apple sauce and an ensure. which is more than he has been eating
--- NOTE | 2020-03-24 13:51 | PC.NURSE ---
turned vapotherm down to 30 l and 60% currently sating 91%
--- NOTE | 2020-03-24 18:42 | PC.NURSE ---
End of shift report. Patient is alert and oriented x4. He still has audible crackles on his right side of lungs. Patients o2 sats have continuously dropped all day. Patient started the shift on 15L venti mask and was unable to tolerate. Patient had episodes of coughing and holding breath. MD was notified and reported that as long he was not breathing fast or showing distress then he would be fine with the patients sats above 80%. Patient was placed on a vapotherm after going to the bathroom and his sats dropping to the 70's without recovering after 30-40 minutes. His current settings on vapotherm are 30L fio2 80%. Patient has had many spells of coughing. He tends to hold his breath when he coughs. At 1845 the patient took his vapotherm mask off to get back in the bed from the chair and his sats dropped down into the 60's. He has recovered back to 85%. He tends to take 25-30minutes to fully recover. He has had a great urine output today. He had one episode of a low grade temp and tylenol was given. He seems to be resting. Will continue to monitor.
[2020-03-24 18:57] LABS: Vancomycin,Trough 14.3 ug/mL (5.0-10.0)
--- NOTE | 2020-03-24 18:58 | PC.NURSE ---
[facility] called stating that vancomycin was okay to be hung
[2020-03-25] VITALS (10 sets, daily range): BP systolic 95–121; BP diastolic 41–66; PULSE 60–86; RESP 22–30; TEMP 36.7–37.8; O2SAT 83–96; BMI 35.0
--- NOTE | 2020-03-25 02:20 | PC.NURSE ---
Pt began to desat 82-83% Respirations 28 page RT vapotherm settings changed 35L 70%. pt O2 sats returned to 90%
--- NOTE | 2020-03-25 04:44 | PC.NURSE ---
pt A&OX4 fine crackles t/o. o2 sats 88-91% on Vapotherm 35L 70%. pt had lower fever medicated X 2 per MAR. pt has slept at intervals t/o shift.
[2020-03-25 05:38] LABS: Basophils % 0.3 % (0.1-2.0); Hematocrit 38.5 % (42.0-52.0); Hemoglobin 12.6 g/dL (14.1-18.0); Lymphocytes # 0.7 K/mm3 (0.7-4.5); Lymphocytes % 19.3 % (10-50); Mean Corpuscular HGB Conc 32.6 g/dL (31.8-35.4); Mean Corpuscular Hemoglobin 27.6 pg (27.0-31.2); Mean Corpuscular Volume 84.7 fl (80-94); Mean Platelet Volume 8.6 fl (7.4-10.4); Monocytes # 0.2 K/mm3 (0.1-1.0); Neutrophils # 2.6 K/mm3 (1.8-7.8); Neutrophils % 75.5 % (37.0-80.0); Platelet Count 172 K/mm3 (142-424); Red Blood Count 4.55 M/mm3 (4.60-6.20); Red Cell Distribution Width 13.8 % (11.5-17.5); White Blood Count 3.5 K/mm3 (4.8-10.8)
[2020-03-25 05:49] LABS: Alanine Aminotransferase 82 U/L (12-78); Albumin Level 3.1 g/dl (3.5-5.0); Albumin/Globulin Ratio 1.2 (1.1-1.8); Alkaline Phosphatase 64 U/L (38-126); Anion Gap 12.5 mEq/L (5-15); Aspartate Amino Transferase 129 U/L (17-59); Bilirubin,Total 0.4 mg/dl (0.2-1.3); Blood Urea Nitrogen 26 mg/dl (9-20); Calcium 8.9 mg/dl (8.4-10.2); Carbon Dioxide 26 mmol/L (22.0-30.0); Chloride 107 mmol/L (98-107); Creatinine Clearance Estimated 103 mL/min (50-200); Estimated Glomerular Filt Rate 56 ml/min (>60); GFR (African American) 68 ML/MIN (>60); Globulin 2.5 g/dL (1.3-3.2); Glucose 111 mg/dl (74-100); Potassium 3.5 mmoL/L (3.5-5.1); Sodium 142 mmol/L (136-145); Total Protein,Serum 5.6 g/dl (6.3-8.2)
--- NOTE | 2020-03-25 09:56 | HMH.PHACONS ---
- Pharmacy Consult Date: 03/25/20 Time: 09:56 Referring provider: DR. GRIMES Reason for Consult:: VANCOMYCIN DOSING Allergies and ADEs:: Allergies Allergy/AdvReac Type Severity Reaction Status Date / Time No Known Allergies Allergy Verified 03/11/20 14:50 Home Medications:: Home Medications Medication Instructions Recorded Confirmed Type bupropion HCl 150 mg tablet,12 hr 150 mg PO BID 05/18/17 03/20/20 History sustained-release trazodone 150 mg tablet 150 mg PO HS tab 05/18/17 03/20/20 History amlodipine 5 mg tablet 5 mg PO DAILY #90 tab 03/08/19 03/20/20 Rx bisoprolol fumarate 10 mg tablet 10 mg PO DAILY #90 tab 04/28/19 03/20/20 Rx quetiapine 300 mg tablet 150 mg PO HS tab 05/16/19 03/20/20 History sertraline 100 mg tablet 100 mg PO DAILY tab 05/16/19 03/20/20 History Furosemide [Furosemide 80mg Tab] 80 mg PO DAILY 07/03/19 03/20/20 History Mirabegron [Myrbetriq] 25 mg PO DAILY 07/03/19 03/20/20 History Lovastatin 40 mg PO DAILY 01/05/20 03/20/20 History Aspirin [Low Dose Aspirin EC] 81 mg PO DAILY 03/20/20 03/20/20 History lisinopriL [Prinivil 20mg Tablet] 20 mg PO BID 03/20/20 03/20/20 History Diclofenac Sodium [Diclofenac Sod 1 applicatio TP QIDP PRN 03/21/20 03/21/20 History 100gm Topical Gel] Fluticasone/Vilanterol [Breo 1 puff IH DAILY 03/21/20 03/21/20 History Ellipta 200-25 Mcg INH] Ranolazine [Ranolazine ER] 500 mg PO BID 03/21/20 03/21/20 History Ticagrelor [Brilinta 90mg 90 mg PO BID 03/21/20 03/21/20 History Tablet] Height: 1.85 m Weight: 119.89 kg Laboratory Results:: Laboratory Results - last 24 hr 03/24/20 18:25: Vancomycin Trough 14.3 H 03/25/20 05:12: WBC 3.5 L, RBC 4.55 L, Hgb 12.6 L, Hct 38.5 L, MCV 84.7, MCH 27.6, MCHC 32.6, RDW 13.8, Plt Count 172, MPV 8.6, Neut % (Auto) 75.5, Lymph % (Auto) 19.3, [place] % (Auto) 5.0, Eos % (Auto) 0.0 L, Baso % (Auto) 0.3, Neut # (Auto) 2.6, Lymph # (Auto) 0.7, [place] # (Auto) 0.2, Eos # (Auto) 0.0, Baso # (Auto) 0.0 03/25/20 05:12: Sodium 142, Potassium 3.5, Chloride 107, Carbon Dioxide 26, Anion Gap 12.5, BUN 26 H D, Creatinine 1.30 H, Estimated Creat Clear 103, Estimated GFR 56 L, Est GFR ( Amer) 68, Glucose 111 H, Calcium 8.9, Total Bilirubin 0.4, AST 129 H D, ALT 82 H D, Alkaline Phosphatase 64, Total Protein 5.6 L, Albumin 3.1 L D, Globulin 2.5, Albumin/Globulin Ratio 1.2 Medical History: Reports:: Aneurysm, Congestive Heart Failure, Coronary Artery Disease, Depression, Gastroesophageal Reflux Disease(GERD), Hyperlipidemia, Hypertension Denies:: Cancer, Chronic Obstructive Pulmonary Disease (COPD), Diabetes Mellitus Type 1, Diabetes Mellitus Type 2, Internal Pacemaker, MRSA, Myocardial Infarction, Seizures Assessment and Plan (1) ELIZABETH (acute kidney injury) Status: Acute Category: Medical Code(s): N17.9 - Acute kidney failure, unspecified (2) COVID-19 Status: Acute Category: Medical Code(s): U07.1 - COVID-19 (3) Leukopenia Status: Acute Category: Medical Code(s): D72.819 - Decreased white blood cell count, unspecified (4) Acute hypoxemic respiratory failure due to COVID-19 Status: Acute Category: Medical Code(s): U07.1 - COVID-19; J96.01 - Acute respiratory failure with hypoxia (5) Lobar pneumonia Status: Acute Category: Medical Code(s): J18.1 - Lobar pneumonia, unspecified organism - Assessment and plan all Dx Assessment and Plan for all problems:: PATIENT'S VANCOMYCIN TROUGH LEVEL WAS 14.3 MCG/ML OVERNIGHT. RECOMMEND PATIENT CONTINUE WITH VANCOMYCIN 2000 MG Q12H AT THIS TIME.
--- NOTE | 2020-03-25 11:45 | DIET.NUTRFU ---
Pt with poor PO intakes, 25-50% with fair toleration. Supplements increased to TID and soft modifications made to improve ease of eating. Weight stable. Continuing to monitor.
--- NOTE | 2020-03-25 17:21 | HMH.ACPN2 ---
Internal Medicine - PN: Subj *Date: 03/25/20 *Time: 17:21 Interval history: Patient is done fairly well through the day, O2 saturations have been stable on Vapotherm, interestingly when he wakes up and sits up they improve, when he is lying flat they tend to go into the upper 80s. Echocardiogram from this morning reviewed, slightly suppressed ejection fraction-40 to 50%. Patient is responded well to Lasix. Exam Vital signs and Labs for Last 24 Hours: Temp Pulse Resp BP Pulse Ox 98.5 F 82 24 106/66 L 88 L 03/25/20 16:00 03/25/20 16:00 03/25/20 16:00 03/25/20 16:00 03/25/20 16:00 Laboratory Results - last 24 hr 03/24/20 18:25: Vancomycin Trough 14.3 H 03/25/20 05:12: WBC 3.5 L, RBC 4.55 L, Hgb 12.6 L, Hct 38.5 L, MCV 84.7, MCH 27.6, MCHC 32.6, RDW 13.8, Plt Count 172, MPV 8.6, Neut % (Auto) 75.5, Lymph % (Auto) 19.3, [place] % (Auto) 5.0, Eos % (Auto) 0.0 L, Baso % (Auto) 0.3, Neut # (Auto) 2.6, Lymph # (Auto) 0.7, Will # (Auto) 0.2, Eos # (Auto) 0.0, Baso # (Auto) 0.0 03/25/20 05:12: Sodium 142, Potassium 3.5, Chloride 107, Carbon Dioxide 26, Anion Gap 12.5, BUN 26 H D, Creatinine 1.30 H, Estimated Creat Clear 103, Estimated GFR 56 L, Est GFR ( Amer) 68, Glucose 111 H, Calcium 8.9, Total Bilirubin 0.4, AST 129 H D, ALT 82 H D, Alkaline Phosphatase 64, Total Protein 5.6 L, Albumin 3.1 L D, Globulin 2.5, Albumin/Globulin Ratio 1.2 I & O for Last 24 hours: Intake & Output 03/23/20 03/24/20 03/25/20 03/26/20 11:59 11:59 11:59 11:59 Intake Total 9 / 2119 290 / 290 1014 / 1014 240 / 240 Output Total 2300 / 2300 1450 / 1450 875 / 875 400 / 400 Balance -181 / -181 -1160 / -1160 139 / 139 -160 / -160 Weight 265 lb 6.4 oz 266 lb 4 oz 264 lb 5 oz Microbiology Reports for the Last 24 Hours: Microbiology 03/23/20 05:40 Blood Blood Culture - Preliminary NO GROWTH AFTER 48 HOURS 03/23/20 05:40 Blood Blood Culture - Preliminary NO GROWTH AFTER 48 HOURS 03/20/20 11:20 Blood - Random Blood Culture - Preliminary Micrococcus luteus/lylae Narrative: Patient is alert, somewhat sad about being confined to his room. ENT exam clear, no JVD. Lungs have good air movement, minimal bibasilar crackles. Heart rate regular. No gallops. Abdomen soft. No clubbing or cyanosis or edema, neurologic exam intact Assessment and Plan (1) ELIZABETH (acute kidney injury) Status: Acute Category: Medical Code(s): N17.9 - Acute kidney failure, unspecified (2) COVID-19 Status: Acute Category: Medical Code(s): U07.1 - COVID-19 (3) Leukopenia Status: Acute Category: Medical Code(s): D72.819 - Decreased white blood cell count, unspecified (4) Acute hypoxemic respiratory failure due to COVID-19 Status: Acute Category: Medical Code(s): U07.1 - COVID-19; J96.01 - Acute respiratory failure with hypoxia (5) Lobar pneumonia Status: Acute Category: Medical Code(s): J18.1 - Lobar pneumonia, unspecified organism (6) Reduced ejection fraction concurrent with and due to acute heart failure Status: Acute Category: Medical Code(s): I50.21 - Acute systolic (congestive) heart failure Continue antibiotic therapy for possible bacterial pneumonia superimposed on COVID-19. Continue COVID-19 therapy with dexamethasone and vitamin therapy. Lasix IV today seems to have helped. 1 more dose tomorrow morning. Check labs. Patient is already on CELESTINA inhibitor and beta-randi for CHF issues.
--- NOTE | 2020-03-25 17:53 | PC.NURSE ---
Pt slept at intervals this shift. Current settings on vapotherm are 30 L @ 80%, managed per RT. Denies being SOA. Noted anxiety throughout shift, specifically around phone calls w/ his , at times pt will begin to cry and when asked what is wrong will not answer staff. Home belongings dropped off by step-daughter and given to pt this shift. Lungs noted to have crackles in bilat lower lobes, diminished upon ausculation this afternoon. Abdomen soft, non-tender w/ active BS. Pt reports two loose stools this shift. Voiding w/o difficulty. Has had 1 L of urine out thus far. Skin intact. Call tinoco w/in reach. No needs voiced.
[2020-03-26] VITALS (13 sets, daily range): BP systolic 102–116; BP diastolic 51–71; PULSE 54–93; RESP 20–40; TEMP 36.4–36.8; O2SAT 89–98; BMI 35.0
--- NOTE | 2020-03-26 06:33 | PC.NURSE ---
Pt is A&O and has been pleasant t/o shift, no crying noted. Pt has c/o cough and during these episodes has desat to low-mid 80's. Vapotherm titrated per respiratory and current settings are 40LPM and 100% FiO2. Pt has continued to be tachypneic while awake and during sleep has been 24-28. Pt frequently needs reminding to keep NC in place. Tegaderm used to help with movement during sleep, however pt continued to remove. Pt SaO2 has been better after increase in O2, currently at 95%. Pt has only c/o SOA 1x during a coughing episode near the beginning of the shift. No crackles noted on auscultation, only very diminished. Pt has had a BM this shift, ABD is soft, non-tender with active bowel sounds. No pitting edema noted. Lovenox for VTE. Call light within reach.
[2020-03-26 07:29] LABS: Basophils % 0.6 % (0.1-2.0); Eosinophils % 0.2 % (0.1-12.0); Hematocrit 37.3 % (42.0-52.0); Hemoglobin 11.8 g/dL (14.1-18.0); Lymphocytes # 0.7 K/mm3 (0.7-4.5); Lymphocytes % 23.8 % (10-50); Mean Corpuscular HGB Conc 31.8 g/dL (31.8-35.4); Mean Corpuscular Hemoglobin 27.4 pg (27.0-31.2); Mean Corpuscular Volume 86.2 fl (80-94); Mean Platelet Volume 8.5 fl (7.4-10.4); Monocytes # 0.2 K/mm3 (0.1-1.0); Monocytes % 6.4 % (1.7-9.3); Platelet Count 203 K/mm3 (142-424); Red Blood Count 4.32 M/mm3 (4.60-6.20); Red Cell Distribution Width 13.5 % (11.5-17.5); White Blood Count 2.9 K/mm3 (4.8-10.8)
[2020-03-26 07:35] LABS: Chloride 106 mmol/L (98-107); Potassium 3.1 mmoL/L (3.5-5.1); Sodium 143 mmol/L (136-145)
[2020-03-26 07:38] LABS: Anion Gap 10.1 mEq/L (5-15); Blood Urea Nitrogen 27 mg/dl (9-20); Carbon Dioxide 30 mmol/L (22.0-30.0); Creatinine Clearance Estimated 95 mL/min (50-200); Estimated Glomerular Filt Rate 52 ml/min (>60); GFR (African American) 63 ML/MIN (>60)
[2020-03-26 07:39] LABS: Calcium 8.8 mg/dl (8.4-10.2); Glucose 88 mg/dl (74-100)
--- NOTE | 2020-03-26 07:41 | XR_ITS ---
PROCEDURE: XR CHEST PORTABLE CLINICAL HISTORY: increased o2 requirement Shortness of air, COVID 19 pneumonia COMPARISON: CR XR CHEST PORTABLE from 03/20/2020 CR XR CHEST PORTABLE from 03/23/2020 CR XR CHEST PORTABLE from 03/24/2020 FINDINGS: The cardiomediastinal silhouette and pulmonary vascularity are within normal limits. Increasing airspace disease noted in both lower lobes. Upper lobes are clear. Possible small left effusion. No acute bony abnormalities. IMPRESSION: Worsening bilateral pneumonia Dictated by: Dagoberto Contreras MD 03/26/2020 09:54 Dagoberto Contreras MD in [facility] 03/26/2020 09:54
--- NOTE | 2020-03-26 10:08 | PC.NURSE ---
Per Dr. Muniz Pt weaned from 40L on Vapotherm to 30L. Pt SPO2 immediately dropped to 71% and maintained. Pt become SOB and mildly anxious. Returned Vapotherm to 40L SPO2 90% Pt recovered well. TYE jarrell
--- NOTE | 2020-03-26 10:37 | P.PN_ITS ---
Internal Medicine - PN: Subj *Date: 03/26/20 *Time: 10:37 Exam Vital signs and Labs for Last 24 Hours: Temp Pulse Resp BP Pulse Ox 98.1 F 54 L 20 116/59 L 97 03/26/20 08:00 03/26/20 08:00 03/26/20 08:00 03/26/20 08:00 03/26/20 08:00 Laboratory Results - last 24 hr 03/26/20 05:28: WBC 2.9 L, RBC 4.32 L, Hgb 11.8 L, Hct 37.3 L, MCV 86.2, MCH 27.4, MCHC 31.8, RDW 13.5, Plt Count 203, MPV 8.5, Neut % (Auto) 69.0, Lymph % (Auto) 23.8, [place] % (Auto) 6.4, Eos % (Auto) 0.2, Baso % (Auto) 0.6, Neut # (Auto) 2.0, Lymph # (Auto) 0.7, [place] # (Auto) 0.2, Eos # (Auto) 0.0, Baso # (Auto) 0.0 03/26/20 05:28: Sodium 143, Potassium 3.1 L, Chloride 106, Carbon Dioxide 30, Anion Gap 10.1, BUN 27 H, Creatinine 1.40 H, Estimated Creat Clear 95, Estimated GFR 52 L, Est GFR ( Amer) 63, Glucose 88, Calcium 8.8 I & O for Last 24 hours: Intake & Output 03/23/20 03/24/20 03/25/20 03/26/20 23:59 23:59 23:59 23:59 Intake Total 1654 / 1654 524 / 524 1653 / 2153 500 / 500 Output Total 2750 / 2750 1475 / 1475 1300 / 1300 1200 / 1200 Balance -1096 / -1096 -951 / -951 353 / 853 -700 / -700 Weight 120.383 kg 120.769 kg 119.89 kg 119.862 kg Microbiology Reports for the Last 24 Hours: Microbiology 03/23/20 05:40 Blood Blood Culture - Preliminary NO GROWTH AFTER 48 HOURS 03/23/20 05:40 Blood Blood Culture - Preliminary NO GROWTH AFTER 48 HOURS Assessment and Plan (1) ELIZABETH (acute kidney injury) Status: Acute Category: Medical Code(s): N17.9 - Acute kidney failure, unspecified (2) COVID-19 Status: Acute Category: Medical Code(s): U07.1 - COVID-19 (3) Leukopenia Status: Acute Category: Medical Code(s): D72.819 - Decreased white blood cell count, unspecified (4) Acute hypoxemic respiratory failure due to COVID-19 Status: Acute Category: Medical Code(s): U07.1 - COVID-19; J96.01 - Acute respiratory failure with hypoxia (5) Lobar pneumonia Status: Acute Category: Medical Code(s): J18.1 - Lobar pneumonia, unspecified organism (6) Reduced ejection fraction concurrent with and due to acute heart failure Status: Acute Category: Medical Code(s): I50.21 - Acute systolic (congestive) heart failure The patient's infection will respond to the chosen ABx?: Yes Is the patient receiving the right drug, dose, and route?: Yes Could a more targeted ABx be ordered?: No
--- NOTE | 2020-03-26 11:23 | HMH.ACPN2 ---
Internal Medicine - PN: Subj *Date: 03/26/20 *Time: 13:49 Interval history: Mr. Boyd continues to have respiratory distress. Was increased on Vapotherm to 100% overnight. Has occasional desats which I suspect are his ARDS complicated by obstructive sleep apnea. O2 saturations stable in the low 90s today. Repeat chest x-ray obtained this morning, slight worsening of his bilateral airspace disease. Continues antibiotics and steroids. Breathing treatments resumed today. Responding well to diuresis with 1500 cc out so far today by 1 PM. Reviewed labs from this morning, essentially stable with persistent leukopenia. Patient denies chest pain, nausea, vomiting. Tolerating good p.o. intake. Continues to be very anxious and worried. Asked upon entering the room, Am I gonna make it doc? Exam Vital signs and Labs for Last 24 Hours: Temp Pulse Resp BP Pulse Ox 98.1 F 54 L 20 116/59 L 97 03/26/20 08:00 03/26/20 08:00 03/26/20 08:00 03/26/20 08:00 03/26/20 08:00 Laboratory Results - last 24 hr 03/26/20 05:28: WBC 2.9 L, RBC 4.32 L, Hgb 11.8 L, Hct 37.3 L, MCV 86.2, MCH 27.4, MCHC 31.8, RDW 13.5, Plt Count 203, MPV 8.5, Neut % (Auto) 69.0, Lymph % (Auto) 23.8, [place] % (Auto) 6.4, Eos % (Auto) 0.2, Baso % (Auto) 0.6, Neut # (Auto) 2.0, Lymph # (Auto) 0.7, [place] # (Auto) 0.2, Eos # (Auto) 0.0, Baso # (Auto) 0.0 03/26/20 05:28: Sodium 143, Potassium 3.1 L, Chloride 106, Carbon Dioxide 30, Anion Gap 10.1, BUN 27 H, Creatinine 1.40 H, Estimated Creat Clear 95, Estimated GFR 52 L, Est GFR ( Amer) 63, Glucose 88, Calcium 8.8 I & O for Last 24 hours: Intake & Output 11/21/20 11/22/20 11/23/20 11/24/20 23:59 23:59 23:59 23:59 Intake Total 1654 / 1654 524 / 524 1653 / 2153 500 / 500 Output Total 2750 / 2750 1475 / 1475 1300 / 1300 1200 / 1200 Balance -1096 / -1096 -951 / -951 353 / 853 -700 / -700 Weight 120.383 kg 120.769 kg 119.89 kg 119.862 kg Microbiology Reports for the Last 24 Hours: Microbiology 03/23/20 05:40 Blood Blood Culture - Preliminary NO GROWTH AFTER 48 HOURS 03/23/20 05:40 Blood Blood Culture - Preliminary NO GROWTH AFTER 48 HOURS - Constitutional mild distress, obese, chronically ill appearing - *Routine HEENT Exam Head: Present: normocephalic Eye: Present: EOMI, PERRL ENT: Present: mucous membranes moist - *Routine Neck Exam Present: supple. Absent: lymphadenopathy - *Routine Respiratory Exam Present: diminished air movement Comments: However surprisingly clear with no significant crackles or rhonchi - *Routine Cardiovascular Exam Present: RRR - *Routine Abdominal Exam Present: soft, normoactive bowel sounds. Absent: tenderness - *Routine Extremities Exam Present: edema (Trace bilateral lower extremity). Absent: cyanosis, clubbing - *Routine Skin Exam Present: warm. Absent: rash - *Routine Neurological Exam Present: alert, oriented X3 Assessment and Plan (1) ELIZABETH (acute kidney injury) Status: Acute Category: Medical Code(s): N17.9 - Acute kidney failure, unspecified (2) COVID-19 Status: Acute Category: Medical Code(s): U07.1 - COVID-19 (3) Leukopenia Status: Acute Category: Medical Code(s): D72.819 - Decreased white blood cell count, unspecified (4) Acute hypoxemic respiratory failure due to COVID-19 Status: Acute Category: Medical Code(s): U07.1 - COVID-19; J96.01 - Acute respiratory failure with hypoxia (5) Lobar pneumonia Status: Acute Category: Medical Code(s): J18.1 - Lobar pneumonia, unspecified organism (6) Reduced ejection fraction concurrent with and due to acute heart failure Status: Acute Category: Medical Code(s): I50.21 - Acute systolic (congestive) heart failure - Assessment and plan all Dx Assessment and Plan for all problems:: 59-year-old male with hypoxemic respiratory failure secondary to Covid pneumonia. Continue broad
--- NOTE | 2020-03-26 13:54 | PC.NURSE ---
pt up in chair at this time, using incentive spirometer. full linen change done as well.
--- NOTE | 2020-03-26 14:16 | PC.NURSE ---
PT REMAINS ON VAPOTHERM AT 40L 100%fIO2. WHEN ATTEMPTING TO WEAN VAPOTHERM DOWN TO 35L 100% FIO2, PT DESAT TO MID TO HIGH 70'S. PT MAINTAINS O2 SAT >90% WITH OCCASIONAL DESATS TO MID 80'S WHEN STANDING OR AMBULATING TO CHAIR. HE DOES EXPRESS SOB. SINCE SITTING UP IN CHAIR AND USING HIS IS CORRECTLY, PT O2 SATURATION HAS BEEN BETWEEN 88-90%. WILL CONT. TO MONITOR AND ENCOURAGE PT WITH CARE.
[2020-03-26 14:57] LABS: Erythrocyte Sedimentation Rate 123 mm/hr (0-20)
[2020-03-26 15:29] LABS: Procalcitonin 0.132 ng/mL (0.0-2.0)
[2020-03-26 16:09] LABS: C-Reactive Protein 66.5 mg/L (0-4)
[2020-03-27] VITALS (14 sets, daily range): BP systolic 105–113; BP diastolic 52–63; PULSE 65–97; RESP 16–29; TEMP 36.5–37.7; O2SAT 73–92; BMI 35.4
--- NOTE | 2020-03-27 04:18 | PC.NURSE ---
Pt A&OX4 lungs diminished t/o. O2 sats 90-94% on Vapotherm 40L 100%. pt voids per urinal and BSC independenlty. pt has rested quietly this shift.
[2020-03-27 05:45] LABS: Basophils % 0.3 % (0.1-2.0); Eosinophils % 0.7 % (0.1-12.0); Hematocrit 39.1 % (42.0-52.0); Lymphocytes % 21.2 % (10-50); Mean Corpuscular HGB Conc 33.4 g/dL (31.8-35.4); Mean Corpuscular Hemoglobin 28.6 pg (27.0-31.2); Mean Corpuscular Volume 85.5 fl (80-94); Mean Platelet Volume 10.2 fl (7.4-10.4); Monocytes # 0.4 K/mm3 (0.1-1.0); Monocytes % 8.6 % (1.7-9.3); Neutrophils # 3.2 K/mm3 (1.8-7.8); Neutrophils % 69.1 % (37.0-80.0); Platelet Count 217 K/mm3 (142-424); Red Blood Count 4.58 M/mm3 (4.60-6.20); Red Cell Distribution Width 15.7 % (11.5-17.5); White Blood Count 4.6 K/mm3 (4.8-10.8)
[2020-03-27 05:46] LABS: Chloride 105 mmol/L (98-107); Sodium 143 mmol/L (136-145)
[2020-03-27 05:49] LABS: Alanine Aminotransferase 131 U/L (12-78); Albumin Level 3.4 g/dl (3.5-5.0); Albumin/Globulin Ratio 1.1 (1.1-1.8); Alkaline Phosphatase 69 U/L (38-126); Aspartate Amino Transferase 135 U/L (17-59); Bilirubin,Total 0.5 mg/dl (0.2-1.3); Blood Urea Nitrogen 27 mg/dl (9-20); Calcium 8.8 mg/dl (8.4-10.2); Carbon Dioxide 32 mmol/L (22.0-30.0); Estimated Glomerular Filt Rate 52 ml/min (>60); GFR (African American) 63 ML/MIN (>60); Glucose 89 mg/dl (74-100); Total Protein,Serum 6.4 g/dl (6.3-8.2)
[2020-03-27 05:50] LABS: Magnesium 2.2 mg/dl (1.6-2.3)
[2020-03-27 05:52] LABS: Hemoglobin 13.1 g/dL (14.1-18.0)
[2020-03-27 05:54] LABS: Creatinine Clearance Estimated 96 mL/min (50-200)
[2020-03-27 05:55] LABS: C-Reactive Protein 45.5 mg/L (0-4)
--- NOTE | 2020-03-27 07:12 | XR_ITS ---
PROCEDURE: XR CHEST PORTABLE CLINICAL HISTORY: assess for in pneumonia Shortness of breath COMPARISON: No exams were available for comparison FINDINGS: The cardiomediastinal silhouette and pulmonary vascularity are within normal limits. Bilateral pneumonia once again noted overall not significantly changed. No acute bony abnormalities. IMPRESSION: No change bilateral pneumonia Dictated by: Dagoberto Contreras MD 03/27/2020 09:15 Dagoberto Contreras MD in [facility] 03/27/2020 09:15
--- NOTE | 2020-03-27 08:13 | HMH.ACPN2 ---
Internal Medicine - PN: Subj *Date: 03/27/20 *Time: 08:13 Interval history: Patient slept well overnight. Comfortable. Vital signs normal except for persistently low pulse oximetry readings which are incongruous with the patient's clinical presentation, for example currently he has a pulse oximetry reading of 62% but is absolutely not cyanotic, in no distress and is alert, oriented and asking lots of appropriate questions. Exam Vital signs and Labs for Last 24 Hours: Temp Pulse Resp BP Pulse Ox 99.8 F H 88 19 110/60 92 L 03/27/20 07:33 03/27/20 07:33 03/27/20 07:33 03/27/20 07:33 03/27/20 07:33 Laboratory Results - last 24 hr 03/26/20 14:10: ESR 123 H 03/26/20 14:10: C-Reactive Protein 66.5 H, Procalcitonin 0.132 03/27/20 05:20: WBC 4.6 L D, RBC 4.58 L, Hgb 13.1 L D, Hct 39.1 L, MCV 85.5, MCH 28.6, MCHC 33.4, RDW 15.7, Plt Count 217, MPV 10.2, Neut % (Auto) 69.1, Lymph % (Auto) 21.2, [place] % (Auto) 8.6, Eos % (Auto) 0.7, Baso % (Auto) 0.3, Neut # (Auto) 3.2, Lymph # (Auto) 1.0, [place] # (Auto) 0.4, Eos # (Auto) 0.0, Baso # (Auto) 0.0 03/27/20 05:20: Sodium 143, Potassium 3.0 L, Chloride 105, Carbon Dioxide 32 H, Anion Gap 9.0, BUN 27 H, Creatinine 1.40 H, Estimated Creat Clear 96, Estimated GFR 52 L, Est GFR ( Amer) 63, Glucose 89, Calcium 8.8, Magnesium 2.2, Total Bilirubin 0.5, AST 135 H, ALT 131 H D, Alkaline Phosphatase 69, C-Reactive Protein 45.5 H D, Total Protein 6.4, Albumin 3.4 L, Globulin 3.0, Albumin/Globulin Ratio 1.1 I & O for Last 24 hours: Intake & Output 1103/25/20 03/26/20 03/27/20 11:59 11:59 11:59 11:59 Intake Total 290 / 290 1014 / 1014 1613 / 1613 1080 / 1080 Output Total 1450 / 1450 875 / 875 2500 / 2500 1625 / 1625 Balance -1160 / -1160 139 / 139 -887 / -887 -545 / -545 Weight 266 lb 4 oz 264 lb 5 oz 264 lb 4 oz 267 lb 9 oz Narrative: Patient awakens easily. Oriented x3. Able to take a deep breath and pull 1500 mL on the incentive spirometer, this does cause a cough which the patient attempts to suppress. No sputum production. Oropharynx clear, no JVD. Heart rate regular in the low 90s. Abdomen soft. Lungs have crackles in both lower lung vital which are a little bit more prominent than yesterday. No cyanosis, edema or clubbing. Neurologically he is intact Assessment and Plan (1) ELIZABETH (acute kidney injury) Status: Acute Category: Medical Code(s): N17.9 - Acute kidney failure, unspecified (2) COVID-19 Status: Acute Category: Medical Code(s): U07.1 - COVID-19 (3) Leukopenia Status: Acute Category: Medical Code(s): D72.819 - Decreased white blood cell count, unspecified (4) Acute hypoxemic respiratory failure due to COVID-19 Status: Acute Category: Medical Code(s): U07.1 - COVID-19; J96.01 - Acute respiratory failure with hypoxia (5) Lobar pneumonia Status: Acute Category: Medical Code(s): J18.1 - Lobar pneumonia, unspecified organism (6) Reduced ejection fraction concurrent with and due to acute heart failure Status: Acute Category: Medical Code(s): I50.21 - Acute systolic (congestive) heart failure - Assessment and plan all Dx Assessment and Plan for all problems:: Continue diuresis for CHF and fluid overload issues. This seems to have been helping somewhat. Creatinine stabilized this morning. Continue current broad-spectrum antibiotics, coverage was adjusted yesterday, agree with this plan. I will obtain a blood gas this morning to see if this matches up with the pulse oximetry readings which do not seem clinically reliable. Continue aggressive incentive spirometer.
--- NOTE | 2020-03-27 08:22 | PC.NURSE ---
md rounded on patient this morning. relayed to him o2 sats have been reading low in the 70s however, patient is in no distress and has no signs of of reading a low spo2. md stated he does not believe spo2 sat is reading correctly but we will obtain an abg at this time. chest xray already obtained per md order.
[2020-03-27 09:13] LABS: ABG Base Excess 2.1 mmol/L (-2.4-2.3); ABG HCO3 26.9 mmhg (22.0-26.0); ABG Oxygen Saturation 83 % (90-100); ABG PCO2 44.6 mmhg (35.0-45.0); ABG TCO2 28.3 mmhg (23-27)
[2020-03-27 09:18] LABS: ABG PO2 45.7 mmhg (80-100); Allen's Test ACCEPTABLE; Oxygen 100 %; Source R RADIAL
--- NOTE | 2020-03-27 09:24 | PC.NURSE ---
REPORTED ABG TO
--- NOTE | 2020-03-27 12:17 | DIET.NUTRFU ---
PO intakes 25-50%, protein shakes TID. Weight stable. No diet changes at this time, continuing to monitor.
--- NOTE | 2020-03-27 12:27 | PC.NURSE ---
RT attempted to get sputum, encouraged a cough but pt could not produce a sputum at this time. Cup left at bedside. Will continue to try to get sample.
--- NOTE | 2020-03-27 12:54 | PC.NURSE ---
patient o2 sats continue to be low 80s. with movement patient drops in to low 70s and 60s. patient remains maxed out on vapotherm. he is currently sitting in chair. patient does not appear to be in any distress. he is asking for a bath and is breathing aboiut 24 a minute. coloring is normal. will continue to monitor.
--- NOTE | 2020-03-27 13:27 | CT_ITS ---
PROCEDURE: CT ANGIO CHEST CLINCIAL INDICATION: low pulse ox readings, sob Shortness of breath, COVID 19 positive, pneumonia COMPARISON: CR XR CHEST PORTABLE from 03/27/2020 TECHNIQUE: IV Contrast: 70ML Isovue 370 Axial images obtained with sagittal and coronal reformats. All CT scans at the facility use one or more dose reduction, viz: automated exposure control, ma/kV adjustment per patient size (including targeted exams where dose is matched to indication, i.e. head), or iterative reconstruction technique. FINDINGS: HEART AND MEDIASTINAL STRUCTURES: No evidence of aortic aneurysm or dissection. Coronary artery calcifications are present. No evidence of pulmonary embolus. Scattered small nodes are present in the mediastinum and laura. LUNGS AND PLEURAL SPACES: COPD with centrilobular emphysema. There is diffuse ground-glass attenuation mainly in the lower lobes left worse than right. There is some central sparing an apical sparing of the upper lobes. No cavitation. No effusions. In the lower lobes there is a crazy paving pattern. BONY STRUCTURES: No acute bony abnormalities apparent. UPPER ABDOMEN: There is mild thickening of the esophagus in the upper chest. There is splenomegaly at 15 cm. ADDITIONAL FINDINGS: Gynecomastia IMPRESSION: The 1. No evidence of pulmonary embolus or aortic aneurysm. 2. Diffuse ground-glass attenuation in the mid lower lung zones on both sides left greater than right consistent with atypical pneumonia/ COVID 19 pneumonia Dictated by: Dagoberto Contreras MD 03/27/2020 15:27 Dagoberto Contreras MD in [facility] 03/27/2020 15:27
--- NOTE | 2020-03-27 13:28 | PC.NURSE ---
updated md that keeping o2 sats above 80% had become a challenge. other pulse oxs have been attempted with same readings. nonrebreather placed over patient vapotherm with minimal change to o2 sats that are reading 83%. no change otherwise. patient remains in no distress, asking for a bath. md stated to order a ct of the chest with pe protocol, but otherwise continue with current care
--- NOTE | 2020-03-27 13:57 | PC.NURSE ---
pulse ox placed on patient ear lobe with better sats. trying patient on only nonrebreather to ensure he can tolerate for ct. patient sats on this 87-90%
--- NOTE | 2020-03-27 14:58 | PC.NURSE ---
patient down for ct at this time
--- NOTE | 2020-03-27 17:31 | PC.NURSE ---
md continues to be okay with a sat of 80% or higher. if during night patient becomes short of breath and symptomatic he could go on bipap. patient at home is supposed to sleep with a cpap
--- NOTE | 2020-03-27 18:46 | PC.NURSE ---
Addendum entered by Tanika Triplett, RNA 03/27/20 19:15: Patient has been using his incentive spirometer pulling 1500 today. Original Note: End of shift note. Patient remains on vapotherm with current settings as follows 40L fio2 100%. Patients current o2 sat 84%. Patient will drop down in the 60's and it will take the patient around 20-30min to recover. Dr. Singh came and seen the patient today and he stated that as long as the patient is not in distress to continue to monitor, if the patient seems to be in distress he wants him to be put on bipap through the night. When the patient drops down in the 60's-70's he has no change in color, he is not in distress, his respirations remain normal. Patients lungs have crackles upon auscultation. Patient denies SOB. He had great urine output today. He reports at times that he has a little nausea. He denies pain. Patient reported today that he felt better and he even took a bath voluntarily. Linens were also changed and floor was mopped by nurse. Patient was in great spirits today, he was very pleasant to be around. Will continue to monitor.
--- NOTE | 2020-03-27 21:30 | PC.NURSE ---
Addendum entered by Maddison Isaac RN 03/27/20 23:46: During this episode of desat, pt was also c/o SOA and RR was 18-28 and inconsistent d/t holding breath and cough in. Lips were pale in appearance and pt c/o of increased fatigue. Original Note: At the start of shift pt's sats were mid-upper 70s. Pt was laying in bed and holding breath at times d/t throat and head hurting when coughing. Pt also stating I have to do something different, it feels like a freTripleseat train is in my head . Pt encouraged to do IS, when done correctly pt is able to reach 2500 on IS. However pt then has a cough and holds breath again. This RN and Resp therapy were in pt's room for > 1hr trying to work on breathing techniques and encourage pt to not hold breath as well as keep Vapotherm NC and pulse ox in place. Pt states his understanding for the need to keep these in place to maintain his oxygenation, however pt continues to remove them after staff leaves pt's room. Pt then began holding sats in upper 60s continuously. RT place pt on BiPap 14/12 at 100%. Pt's sats almost immediately come up to mid 80's and he reported It make my head hurts much less. Pt kept mask in place well and was offered oral intake assistance at least 1x every hr. Current sat is 89% and pt is resting quietly in room.
--- NOTE | 2020-03-27 23:32 | PC.NURSE ---
Pt removed Bipap mask and stated he wanted to keep the mask off for a little while and place back on before sleep. Pt was assisted with placing Vapotherm NC back on and Bipap on standby. Pt was assisted with a basin bath and gown changed. Room was wiped down and trash changed. Pt offered linen change but refused. Pt sats dropped to low 60's d/t taking off his O2. This was replaced and he slowly came back up to low 80's. Pt is currently talking on the phone with his and sat is 83%. Will continue to monitor.
[2020-03-28] VITALS (11 sets, daily range): BP systolic 102–119; BP diastolic 48–74; PULSE 67–85; RESP 16–34; TEMP 36.7–37.4; O2SAT 80–92; BMI 34.6
--- NOTE | 2020-03-28 06:53 | PC.NURSE ---
Pt is A&Ox3 and has ambulated to the side of the bed 1x for urinal use. Pt tolerated Bipap for less than 90min after it was replaced for bedtime . Pt reporting dry mouth and wanting to use Vapotherm again. Pt's sats were in th mid80s to low 90s on bipap. Vapotherm was replaced again and pt slept on/off the last few hours and sat stayed up better than in the beginning of the shift. Currently is mid 80s with good waveform on right ear and pt is resting quietly. Very fine crackles to bases and rhonchi on lung auscultation. No pitting edema. ABD is soft, non-tender with active bowel sounds. Last BM was 03/27. Call light within reach and will continue to monitor.
[2020-03-28 06:57] LABS: Basophils % 0.5 % (0.1-2.0); Eosinophils # 0.1 K/mm3 (0.0-0.4); Eosinophils % 1.2 % (0.1-12.0); Hematocrit 36.8 % (42.0-52.0); Hemoglobin 12.8 g/dL (14.1-18.0); Lymphocytes # 0.7 K/mm3 (0.7-4.5); Lymphocytes % 16.5 % (10-50); Mean Corpuscular HGB Conc 34.7 g/dL (31.8-35.4); Mean Corpuscular Hemoglobin 29.3 pg (27.0-31.2); Mean Corpuscular Volume 84.4 fl (80-94); Mean Platelet Volume 8.5 fl (7.4-10.4); Monocytes # 0.3 K/mm3 (0.1-1.0); Monocytes % 5.5 % (1.7-9.3); Neutrophils # 3.5 K/mm3 (1.8-7.8); Neutrophils % 76.4 % (37.0-80.0); Platelet Count 215 K/mm3 (142-424); Red Blood Count 4.36 M/mm3 (4.60-6.20); Red Cell Distribution Width 14.1 % (11.5-17.5); White Blood Count 4.5 K/mm3 (4.8-10.8)
[2020-03-28 06:58] LABS: Chloride 105 mmol/L (98-107)
[2020-03-28 06:59] LABS: Potassium 3.1 mmoL/L (3.5-5.1); Sodium 142 mmol/L (136-145)
[2020-03-28 07:01] LABS: Blood Urea Nitrogen 31 mg/dl (9-20); Creatinine Clearance Estimated 88 mL/min (50-200); Estimated Glomerular Filt Rate 48 ml/min (>60); GFR (African American) 58 ML/MIN (>60)
[2020-03-28 07:02] LABS: Anion Gap 12.1 mEq/L (5-15); Carbon Dioxide 28 mmol/L (22.0-30.0); Glucose 101 mg/dl (74-100)
--- NOTE | 2020-03-28 07:16 | HMH.ACPN2 ---
Internal Medicine - PN: Subj *Date: 03/28/20 *Time: 08:30 Interval history: Patient slept fairly well overnight. Comfortable. Vital signs normal except for intermittent periods of low pulse oximetry. Trial BiPAP overnight with improvement in oxygenation/saturations. With symptomatic once from his hypoxia while sats in the 70s, improved however with adjusting respiratory support to BiPAP. No other acute complaints. Blood pressure stable. Temperature normal (afebrile). Labs reviewed this morning. Denies chest pain, nausea, vomiting. Having some loose stools. Dyspneic. Exam Vital signs and Labs for Last 24 Hours: Temp Pulse Resp BP Pulse Ox 98.0 F 79 24 102/57 L 91 L 03/28/20 03:30 03/28/20 06:44 03/28/20 03:30 03/28/20 03:30 03/28/20 06:44 Laboratory Results - last 24 hr 03/27/20 08:08: Specimen Source R radial, O2 % 100, ABG pH 7.40, ABG pCO2 44.6, ABG pO2 45.7 L, ABG HCO3 26.9 H, ABG Total CO2 28.3 H, ABG O2 Saturation 83 L*, ABG Base Excess 2.1, Dagoberto Test Acceptable 03/28/20 06:10: WBC 4.5 L, RBC 4.36 L, Hgb 12.8 L, Hct 36.8 L, MCV 84.4, MCH 29.3, MCHC 34.7, RDW 14.1, Plt Count 215, MPV 8.5, Neut % (Auto) 76.4, Lymph % (Auto) 16.5, [place] % (Auto) 5.5, Eos % (Auto) 1.2, Baso % (Auto) 0.5, Neut # (Auto) 3.5, Lymph # (Auto) 0.7, [place] # (Auto) 0.3, Eos # (Auto) 0.1, Baso # (Auto) 0.0 03/28/20 06:10: Sodium 142, Potassium 3.1 L, Chloride 105, Carbon Dioxide 28, Anion Gap 12.1, BUN 31 H, Creatinine 1.50 H, Estimated Creat Clear 88, Estimated GFR 48 L, Est GFR ( Amer) 58 L, Glucose 101 H, Calcium 9.0 I & O for Last 24 hours: Intake & Output 03/25/20 03/26/20 03/27/20 03/28/20 23:59 23:59 23:59 23:59 Intake Total 1653 / 2153 740 / 740 2019 / 2260 240 / 240 Output Total 1300 / 1300 2200 / 2200 1575 / 1575 650 / 650 Balance 353 / 853 -1460 / -1460 445 / 685 -410 / -410 Weight 119.89 kg 119.862 kg 121.364 kg 118.586 kg Microbiology Reports for the Last 24 Hours: Microbiology 03/23/20 05:40 Blood Blood Culture - Final NO GROWTH AFTER 5 DAYS 03/23/20 05:40 Blood Blood Culture - Final NO GROWTH AFTER 5 DAYS Narrative: Patient awakens easily. Oriented x3. Able to take a deep breath and pull ~1500 mL on the incentive spirometer, Still tries to temper his cough - No sputum production. Oropharynx clear, no JVD. Heart rate regular. Abdomen soft. Lungs have faint bibasilar posterior field crackles. No cyanosis, edema or clubbing. Neurologically he is intact Assessment and Plan (1) ELIZABETH (acute kidney injury) Status: Acute Category: Medical Code(s): N17.9 - Acute kidney failure, unspecified (2) COVID-19 Status: Acute Category: Medical Code(s): U07.1 - COVID-19 (3) Leukopenia Status: Acute Category: Medical Code(s): D72.819 - Decreased white blood cell count, unspecified (4) Acute hypoxemic respiratory failure due to COVID-19 Status: Acute Category: Medical Code(s): U07.1 - COVID-19; J96.01 - Acute respiratory failure with hypoxia (5) Lobar pneumonia Status: Acute Category: Medical Code(s): J18.1 - Lobar pneumonia, unspecified organism (6) Reduced ejection fraction concurrent with and due to acute heart failure Status: Acute Category: Medical Code(s): I50.21 - Acute systolic (congestive) heart failure - Assessment and plan all Dx Assessment and Plan for all problems:: Continue diuresis for CHF and fluid overload issues today. Will reevaluate tomorrow. Has helped somewhat. Has had significant improvement in volume overload over the past few days. Creatinine stable and still within normal range. Hypokalemia has worsened, increasing daily supplementation. Continue current broad-spectrum antibiotics, agree with this plan given improvement in CRP and elevated Pro-Bryce at start. BiPAP at night for LUCIO complicating hypoxemia. Vapotherm during day. Continue aggressive incentive
--- NOTE | 2020-03-28 16:26 | PC.NURSE ---
Pt has been pleasant and cooperative this shift. A&O X4. No complaints of pain. Pt has had frequent complaints of SOA and has required/requested intermittent BiPap use. When not using BiPap, pt wears the Vapotherm at 40 LPM with 100% FiO2. O2 sats. have remained in the 80's today. Lung sounds reveal expiratory rhonchi and fine crackles. Skin is C/D/I. No edema noted. Pt ambulates with stand-by assistance in the room and has been encouraged to get out of bed, ambulate, and change positions frequently. Pt was offered to get up to the chair and declined, stating that he just isn't up to it today . Severe SOA and O2 de-saturation noted with ANY and ALL exertion. Specimen cup is at bedside and pt has been encouraged to provide a sputum specimen. Pt voids clear, dark, yellow urine via urinal without issue. No BM this shift. Appetite is poor and pt eats less than 10% of all meals. 18 G peripheral IV in the LT AC is patent and SL. Other than his O2 sat., VSS. Call light within reach. Will continue to monitor.
--- NOTE | 2020-03-28 20:35 | PC.NURSE ---
At the beginning of the shift pt was found to be yelling Help! , standing up near the chair in his room, and waving his hands in the air. This RN immediately entered pt's room and found pt to be without his O2 in place. NC was replaced on pt and pulse ox replaced to ear and pt was 68%. Pt was anxious, restless, tachypneic, and severely SOA. This RN asked pt why he removed his O2 and pt stated he didn't know he had removed it. SaO2 improved quickly to low 80's. Pt is A&Ox4 but does have some off-hand comments such as asking when did my room move? . Pt assured he has been in the same room since admission. Pt able to state reason for admission, remembers Dr. Muniz saw him this AM, year/month, and remembers today is Thanksgiving. Pt slowly calming down and resting quietly in the chair and reports I do have a problem with anxiety sometimes. Can I have my medication now? Stayed with pt until 2100 medication could be given and completed several rounds of IS and reach 2,000ml 2x. After medication administration, pt transferred with SBA back to bed and laying quietly on right side. Pt offered Bipap since it appeared he was ready for bed, pt refused at this time. Call light within reach, pt instructed to keep NC in place. Will continue to monitor. pt.
[2020-03-29] VITALS (40 sets, daily range): BP systolic 74–162; BP diastolic 40–97; PULSE 64–127; RESP 16–39; TEMP 36.6–37.8; O2SAT 58–94; BMI 34.3
--- NOTE | 2020-03-29 04:16 | PC.NURSE ---
Pt was up to chair for most of IV ABX infusion. Bed linens changed, room & bed wiped with Oxivir wipes, and pts mouth swabbed and lips moisturized.
[2020-03-29 05:38] LABS: Basophils % 0.3 % (0.1-2.0); Eosinophils # 0.1 K/mm3 (0.0-0.4); Eosinophils % 0.8 % (0.1-12.0); Hemoglobin 13.1 g/dL (14.1-18.0); Lymphocytes # 0.7 K/mm3 (0.7-4.5); Lymphocytes % 11.3 % (10-50); Mean Corpuscular HGB Conc 33.7 g/dL (31.8-35.4); Mean Corpuscular Hemoglobin 28.7 pg (27.0-31.2); Mean Corpuscular Volume 85.1 fl (80-94); Mean Platelet Volume 8.7 fl (7.4-10.4); Monocytes # 0.2 K/mm3 (0.1-1.0); Neutrophils # 5.5 K/mm3 (1.8-7.8); Neutrophils % 84.7 % (37.0-80.0); Platelet Count 231 K/mm3 (142-424); Red Blood Count 4.58 M/mm3 (4.60-6.20); White Blood Count 6.5 K/mm3 (4.8-10.8)
[2020-03-29 05:43] LABS: Chloride 105 mmol/L (98-107); Potassium 3.5 mmoL/L (3.5-5.1); Sodium 144 mmol/L (136-145)
[2020-03-29 05:45] LABS: Blood Urea Nitrogen 37 mg/dl (9-20); Creatinine Clearance Estimated 73 mL/min (50-200); Estimated Glomerular Filt Rate 39 ml/min (>60); GFR (African American) 47 ML/MIN (>60)
[2020-03-29 05:46] LABS: Anion Gap 13.5 mEq/L (5-15); Calcium 9.6 mg/dl (8.4-10.2); Carbon Dioxide 29 mmol/L (22.0-30.0); Glucose 138 mg/dl (74-100); Magnesium 2.5 mg/dl (1.6-2.3)
--- NOTE | 2020-03-29 05:50 | PC.NURSE ---
Pt has continued to refuse to wear bipap t/o this shift. SaO2 in the 80s for most of the shift and pt frequently needs assistance and reminders to keep O2 in place. When pt removes O2, sats drop quickly. Pt is easy to arouse if asleep and replaces NC and sats come back to baseline 80s. Vigorous IS encouraged and had pt using IS 8x while awake this shift. Sputum sample was collected this shift and culture is pending. Sputum was thick, mucoid and red/brown in color. Pt has remained afebrile. ABD is soft, active bowel sounds and had a small BM this shift. Rhonchi and wheezes note on auscultation. No crackles noted. BP has been a little more on the low side but MAP >65 and SBP >90. Pt has been up to the chair for a total time of 50min and tolerated well. Pt does require SBA or assist x1 when ambulating d/t balance issues and trouble with cords & lines. No peripheral edema present. Pt's weight is 1kg less than yesterday according to bed-scale. Current SaO2 is 92% on Vapotherm at 40L and 100% FiO2, Respiratory has not been able to wean O2 this shift. Pt is sitting up in bed and watching the news.
--- NOTE | 2020-03-29 07:48 | PC.NURSE ---
after transfer from bed to bsc and back to bed noted patient sats dropped to 40s after removing oxygen. patient takes a long time to recover. started breathing 38 a minute. sexton in coloring. heart rate 110 manually obtained. with vapotherm returned only in 70s low 80s.
--- NOTE | 2020-03-29 07:54 | HMH.ACPN2 ---
Internal Medicine - PN: Subj *Date: 03/29/20 *Time: 10:52 Interval history: Patient slept fairly well overnight. Comfortable. Vital signs normal except for intermittent periods of low pulse oximetry. Already on BiPAP overnight for periods of time, with improvement in oxygenation/saturations. Variable oxygenation during the day on high flow nasal cannula as he takes it off occasionally. Saturation status very dependent upon positioning. Remains afebrile. Having loose stools. Continues to appear quite ill. Blood pressure little softer today, decreased some of his medications. Will give bolus of 500 cc of fluids this morning. Holding diuretics today given the bump in his creatinine. Labs reviewed this morning. Denies chest pain, nausea, vomiting. Dyspneic Exam Vital signs and Labs for Last 24 Hours: Temp Pulse Resp BP Pulse Ox 98.8 F 110 H 20 99/48 L 70 L 03/29/20 07:38 03/29/20 07:48 03/29/20 07:38 03/29/20 07:38 03/29/20 07:48 Laboratory Results - last 24 hr 03/29/20 05:20: WBC 6.5 D, RBC 4.58 L, Hgb 13.1 L, Hct 39.0 L, MCV 85.1, MCH 28.7, MCHC 33.7, RDW 14.0, Plt Count 231, MPV 8.7, Neut % (Auto) 84.7 H, Lymph % (Auto) 11.3, [place] % (Auto) 3.0, Eos % (Auto) 0.8, Baso % (Auto) 0.3, Neut # (Auto) 5.5, Lymph # (Auto) 0.7, [place] # (Auto) 0.2, Eos # (Auto) 0.1, Baso # (Auto) 0.0 03/29/20 05:20: Sodium 144, Potassium 3.5, Chloride 105, Carbon Dioxide 29, Anion Gap 13.5, BUN 37 H, Creatinine 1.80 H, Estimated Creat Clear 73, Estimated GFR 39 L, Est GFR ( Amer) 47 L, Glucose 138 H D, Calcium 9.6, Magnesium 2.5 H D I & O for Last 24 hours: Intake & Output 03/26/20 03/27/20 03/28/20 03/29/20 23:59 23:59 23:59 23:59 Intake Total 740 / 740 2019 / 2260 1210 / 1210 480 / 480 Output Total 2200 / 2200 1575 / 1575 1701 / 1701 Balance -1460 / -1460 445 / 685 -491 / -491 480 / 480 Weight 119.862 kg 121.364 kg 118.586 kg 117.617 kg Microbiology Reports for the Last 24 Hours: Microbiology 03/28/20 19:40 Sputum - Expectorated Sputum Gram Stain - Final 03/23/20 05:40 Blood Blood Culture - Final NO GROWTH AFTER 5 DAYS 03/23/20 05:40 Blood Blood Culture - Final NO GROWTH AFTER 5 DAYS - Constitutional moderate distress, obese, disheveled - *Routine HEENT Exam Head: Present: normocephalic Eye: Present: EOMI, PERRL ENT: Present: mucous membranes moist Comments: Edentulous - *Routine Neck Exam Present: supple. Absent: lymphadenopathy - *Routine Respiratory Exam Present: crackles, diminished air movement. Absent: wheezes - *Routine Cardiovascular Exam Present: RRR - *Routine Abdominal Exam Present: soft, normoactive bowel sounds. Absent: tenderness - *Routine Extremities Exam Absent: cyanosis, clubbing, edema - *Routine Skin Exam Present: warm. Absent: rash - *Routine Neurological Exam Present: alert, oriented X3 Assessment and Plan (1) ELIZABETH (acute kidney injury) Status: Acute Category: Medical Code(s): N17.9 - Acute kidney failure, unspecified (2) COVID-19 Status: Acute Category: Medical Code(s): U07.1 - COVID-19 (3) Leukopenia Status: Acute Category: Medical Code(s): D72.819 - Decreased white blood cell count, unspecified (4) Acute hypoxemic respiratory failure due to COVID-19 Status: Acute Category: Medical Code(s): U07.1 - COVID-19; J96.01 - Acute respiratory failure with hypoxia (5) Lobar pneumonia Status: Acute Category: Medical Code(s): J18.1 - Lobar pneumonia, unspecified organism (6) Reduced ejection fraction concurrent with and due to acute heart failure Status: Acute Category: Medical Code(s): I50.21 - Acute systolic (congestive) heart failure - Assessment and plan all Dx Assessment and Plan for all problems:: Hold diuresis today, responded well. Slight increase in creatinine. We will actually give back some fluids today with 500 cc bolus run over
--- NOTE | 2020-03-29 08:23 | PC.NURSE ---
placed patient on bipap at this time since he plans on napping. extensive education done with patient on need for bipap and to not just take it off. educated on the call light system. will continue to monitor.
--- NOTE | 2020-03-29 08:41 | PC.NURSE ---
for breakfast patient did tolerate some of his protein shake and ate his cereal
--- NOTE | 2020-03-29 10:58 | PC.NURSE ---
md rounded on patient. aware of low o2 sats. instructed to give patient a 500ml bolus of ns ran over two hours.
--- NOTE | 2020-03-29 11:12 | DIET.NUTRFU ---
Pt with continued low PO intakes- ~25% + protein shakes TID, diet liberalized to regular. Weight stable, 3# loss t/o stay. Continuing to monitor.
--- NOTE | 2020-03-29 14:30 | PC.NURSE ---
Pt intubated @ 1430 with a 7.5 ET tube, 26 @lip. Vent settings=Volume Control 560, RR 20, Peep 10 and 100%. Sputum sample sent to lab and ABG to be drawn 1 hour post intubation.
--- NOTE | 2020-03-29 15:10 | XR_ITS ---
PROCEDURE: XR CHEST PORTABLE..... Performed March 29 at 1544 Referring Doctor: Nando Vilchis Patient Age:59Y CLINICAL HISTORY: covid pneumonia, worsening sats increased difficulty breathing COMPARISON: CR XR CHEST PORTABLE from 03/24/2020 CR XR CHEST PORTABLE from 03/26/2020 CR XR CHEST PORTABLE from 03/27/[address] ANGIO CHEST from 03/27/2020 FINDINGS: This AP portable chest hours compared to 03/27/[address] chest, as well as 03/26/2020 P CXR Progression of bilateral infiltrates. Worsening of the bilateral pneumonia radiographically Left lung: The diffuse infiltrate at left mid lung and left base has becomes more dense, here involving the central as well as peripheral lung vital in these areas. Right lung. Progressive size and density of the regions of patchy infiltrate infiltrate: 1). At periphery of the right mid lung and 2)right infrahilar region/medial right lung base. Vague infiltrate developing throughout the right upper lung field in apex but the heart remains normal in size upper normal pulmonary vascularity. IMPRESSION: Progression of bilateral infiltrates since 03/27/2020 Dictated by: Karan Nicolas MD 03/30/2020 08:23 Karan Nicolas MD in [facility] 03/30/2020 08:23
--- NOTE | 2020-03-29 15:24 | PC.NURSE ---
1400 patient placed back on bipap sating 91%. at 1415 after staff went into another room noted patient to start screaming for help. upon assessment noted patient to have ripped bipap off, and was standing outside of room door screaming. assisted patient back to bed and placed vapotherm on the patient. during this time noted to be 29-35% and patient slowly rebounded to 60s. patient highly agitated at this time saying he is in a garage, and insisting on getting up. respiratory called to replace bipap. patient then rebounded to the 70s with bipap on. dr david salesperson furniture and was updated on patient status. patient remained highly agitated ripping off mask. gave a 1 time order of 1mg ativan iv. patient at this time continues to have slight agitation and frequent reminders to keep bipap on. will continue to monitor.
[2020-03-29 15:47] LABS: ABG Base Excess -4.2 mmol/L (-2.4-2.3); ABG HCO3 20.3 mmhg (22.0-26.0); ABG Oxygen Saturation 90 % (90-100); ABG PCO2 32.4 mmhg (35.0-45.0); ABG PH 7.42 mmol/L (7.35-7.45); ABG PO2 56.7 mmhg (80-100); ABG TCO2 21.3 mmhg (23-27); Oxygen 100% %
[2020-03-29 15:48] LABS: Allen's Test Acceptable; Source Right Radial; Vent Rate 16
--- NOTE | 2020-03-29 16:43 | XR_ITS ---
PROCEDURE: XR CHEST PORTABLE...March 29 at 1657 hours Referring Doctor: Jaden Muniz Patient Age:59Y CLINICAL HISTORY: intubation dyspnea decreased O2 sats c pneumonia covid COMPARISON: CR XR CHEST PORTABLE from 03/26/2020 CR XR CHEST PORTABLE from 03/27/[address] ANGIO CHEST from 03/27/2020 CR XR CHEST PORTABLE from 03/29/2020 FINDINGS: This AP portable chest March 29 at 1657 hours-compared to March 29 portable CXR from earlier in the day as well as 03/27/[address] chest,. Endotracheal tube now in place. Adequate position. Tip is located 5.3 Cm above the tina with tip at the inferior aspect of the head of clavicles. There is better expansion lungs bilaterally on this post intubation chest film versus study from 1 hour earlier. We continue to see the similar pattern of pneumonia airspace disease but with better expansion Left lung: Diffuse fairly dense confluency infiltrate throughout the left mid lung left lung base. Slightly better expanded and very less dense then from chest film earlier today. Left apex remains relatively clear Right lung. Diffuse infiltrate right lung-but most notable are the denser patchy areas of infiltrate 1)at the periphery of the right mid lung and 2) at the right infrahilar region towards right lung base again observed. . Heart remains normal with normal pulmonary vascularity.. The laura and mediastinal structures similar. Left laura the slight generous shadow of left laura due to overlapping infiltrate. nurse monitoring leads in place. Chest wall unremarkable . No evidence of pneumothorax IMPRESSION: Endotracheal tube now in place. Adequate position. ET tube tip 5.3 cm above the tina Diffuse bilateral infiltrates again observed as in text: Right lung more patchy appearance to the infiltrates. Left lung more diffuse confluency infiltrate involving left midlung and left base Slight improved expansion bilaterally now post intubation compared top CXR from 1 hour earlier today. Dictated by: Karan Nicolas MD 03/30/2020 08:35 Karan Nicolas MD in [facility] 03/30/2020 08:35
--- NOTE | 2020-03-29 17:20 | PC.NURSE ---
Lab picked up sputum sample from ICU, order was put in at @ [id number]
--- NOTE | 2020-03-29 17:48 | XR_ITS ---
PROCEDURE: XR CHEST PORTABLE Referring Doctor: Nando Singh Patient Age:59Y CLINICAL HISTORY: confirm ng placement. Covid Bilateral pneumonia dyspnea low O2 sat COMPARISON: CR XR CHEST PORTABLE from 03/27/[address] ANGIO CHEST from 03/27/2020 CR XR CHEST PORTABLE from 03/29/2020 CR XR CHEST PORTABLE from 03/29/2020 CR XR CHEST PORTABLE from 03/30/2020 FINDINGS: AP portable supine CXR performed 03/29/2020 at 1824 hours.. This is compared to study from same day March 29 1657 hour NG tube is now in place a satisfactory position with tip just passing through the GE junction with tip projected over cardia/body of the stomach. It could be advanced slightly to better secure its position and function The ET tube remains in place good position approximately 5.2 cm above tina and was placed earlier today The bilateral infiltrates appear more diffuse in character on this CXR. Left chest: Previous dense ground-glass infiltrate seen mainly at the left mid lung and continuing into the left lung base; but now infiltrate seems to be becoming more diffuse left lung and beginning to extend to the more into the left upper lobe/left apex region Right lung. Slight more diffuse appearance to infiltrate throughout the lung but again with denser patchy infiltrate 1) at the periphery of the right mid lung and 2) right infrahilar region towards medial right lung base again observed. There also seems to be some mild of additional vascular engorgement and cephalization but possible mild vascular congestion. The heart of upper normal in size laura and mediastinal structures similar. detail manager leads in place IMPRESSION: NG tube now in place. NG tip just entering the stomach. Consider advancing for more secure position longer term ET tube satisfactory position 5.2 cm above tina Bilateral infiltrates again noted: Dense patchy areas of infiltrate most evident right chest. Left chest with more confluent infiltrate left mid lung to left lung base but. Today's higher contrast chest images suggest infiltrate beginning to spreading more into the upper lobes. Dictated by: Karan Nicolas MD 03/30/2020 08:48 Karan Nicolas MD in [facility] 03/30/2020 08:48
--- NOTE | 2020-03-29 17:52 | HMH.ACPN ---
Internal Medicine - PN: Subj *Date: 03/29/20 *Time: 17:52 Interval history: Called to bedside by nursing staff for worsening respiratory status. Exam Vital signs and Labs for Last 24 Hours: Temp Pulse Resp BP Pulse Ox 100.0 F H 90 24 115/65 94 L 03/29/20 12:00 03/29/20 12:00 03/29/20 12:00 03/29/20 12:00 03/29/20 12:00 Laboratory Results - last 24 hr 03/29/20 05:20: WBC 6.5 D, RBC 4.58 L, Hgb 13.1 L, Hct 39.0 L, MCV 85.1, MCH 28.7, MCHC 33.7, RDW 14.0, Plt Count 231, MPV 8.7, Neut % (Auto) 84.7 H, Lymph % (Auto) 11.3, Victoria % (Auto) 3.0, Eos % (Auto) 0.8, Baso % (Auto) 0.3, Neut # (Auto) 5.5, Lymph # (Auto) 0.7, Victoria # (Auto) 0.2, Eos # (Auto) 0.1, Baso # (Auto) 0.0 03/29/20 05:20: Sodium 144, Potassium 3.5, Chloride 105, Carbon Dioxide 29, Anion Gap 13.5, BUN 37 H, Creatinine 1.80 H, Estimated Creat Clear 73, Estimated GFR 39 L, Est GFR ( Amer) 47 L, Glucose 138 H D, Calcium 9.6, Magnesium 2.5 H D 03/29/20 15:14: Specimen Source Right radial, O2 % 100%, ABG pH 7.42, ABG pCO2 32.4 L, ABG pO2 56.7 L, ABG HCO3 20.3 L, ABG Total CO2 21.3 L, ABG O2 Saturation 90, ABG Base Excess -4.2 L, Dagoberto Test Acceptable, Vent Rate 16, Tidal Volume bipap 14/8 I & O for Last 24 hours: Intake & Output 03/26/20 03/27/20 03/28/20 03/29/20 23:59 23:59 23:59 23:59 Intake Total 740 / 740 2020 / 2260 1210 / 1210 820 / 820 Output Total 2200 / 2200 1575 / 1575 1701 / 1701 Balance -1460 / -1460 445 / 685 -491 / -491 820 / 820 Weight 119.862 kg 121.364 kg 118.586 kg 117.617 kg Microbiology Reports for the Last 24 Hours: Microbiology 03/28/20 19:40 Sputum - Expectorated Sputum Gram Stain - Final - Constitutional moderate distress Comments: Tachypneic with O2 saturations fluctuating from 65% to 80% - *Routine Respiratory Exam Present: accessory muscle use, diminished air movement Comments: Not tolerating/cooperating with Vapotherm - *Routine Cardiovascular Exam Present: tachycardia - *Routine Extremities Exam Present: full ROM - *Routine Skin Exam Present: intact - *Routine Neurological Exam Present: alert Oriented to person but does not appear oriented to time, place, situation - Routine Psychiatric Exam Present: anxious Assessment and Plan (1) ELIZABETH (acute kidney injury) Status: Acute Category: Medical Code(s): N17.9 - Acute kidney failure, unspecified (2) COVID-19 Status: Acute Category: Medical Code(s): U07.1 - COVID-19 (3) Leukopenia Status: Acute Category: Medical Code(s): D72.819 - Decreased white blood cell count, unspecified (4) Acute hypoxemic respiratory failure due to COVID-19 Status: Acute Category: Medical Code(s): U07.1 - COVID-19; J96.01 - Acute respiratory failure with hypoxia -Patient intubated secondary to acute hypoxic respiratory failure and failure of less invasive therapy -RSI with etomidate 30 mg and succinylcholine 100 mg, preoxygenated with Ambu bag. [place] scope was utilized, intubated with 7.5 cuffed ET tube. No difficulties encountered. Successful first attempt. Secured at 26 cm at the gum. Bilateral breath sounds with color change on colorimetric end-tidal CO2. Confirmatory x-ray obtained. -Patient was inadequately sedated following intubation and required an additional push of propofol. (5) Lobar pneumonia Status: Acute Category: Medical Code(s): J18.1 - Lobar pneumonia, unspecified organism (6) Reduced ejection fraction concurrent with and due to acute heart failure Status: Acute Category: Medical Code(s): I50.21 - Acute systolic (congestive) heart failure
[2020-03-29 18:03] LABS: ABG Base Excess -5.4 mmol/L (-2.4-2.3); ABG HCO3 19.9 mmhg (22.0-26.0); ABG Oxygen Saturation 88 % (90-100); ABG PCO2 35.3 mmhg (35.0-45.0); ABG PH 7.37 mmol/L (7.35-7.45)
[2020-03-29 18:04] LABS: Allen's Test Patient Unable; Oxygen 100 %; PEEP 10; Source Right Radial; Tidal Volume 560; Vent Rate 20
[2020-03-29 18:29] LABS: Microscopic, Urine URINE MICROSCOPIC (MICROSCOPIC)
[2020-03-29 18:30] LABS: Appearance,Urine CLEAR (Clear); Bilirubin,Urine Negative (Negative); Blood, Urine Negative (Negative); Color,Urine YELLOW (Yellow); Glucose,Urine (UA) Negative (Negative); Ketones,Urine Negative (Negative); Leukocyte Esterase,Urine Negative (Negative); Nitrate,Urine Negative (Negative); Protein,Urine Negative (Negative); Specific Gravity, Urine 1.025 (1.005-1.030); Urobilinogen,Urine 0.2 EU/dl (0.2)
[2020-03-29 18:32] LABS: Amorphous Sediment,Urine Trace /lpf
--- NOTE | 2020-03-29 19:13 | PC.NURSE ---
PEEP changed to [address] Muniz.
--- NOTE | 2020-03-29 19:44 | PC.NURSE ---
Addendum entered by Nyla Christina RN 03/29/20 20:39: AT SHIFT CHANGE PATIENT ON 25 MCG/HR OF FENTANYL, AND 50MCG/KG/MIN OF PROPAFOL. Original Note: 1520 patient updated on patient status, and next possible steps in plan of care. she stated she wanted everything done that was needed for the patient including intubation. 1545 patient continued to have significant agitation and started to rip bipap off and sat up on side of bed. during this time he also urinated on floor. he refused to allow staff to replace bipap at that time. also started to push at staff and refuse vapotherm. after frequent education and redirection he finally allowed staff to replace vapotherm with sats only in the 70s at that time. patient recovery remained slow. dr. bosch called checking on patient at about 1555. during this call md was updated on patient day and all interventions attempted. patient was in more distress breathing about 30 a minute. md stated to call er md ad have him to intubate. md stated he would call back with the settings for vent. stated to use propofol and fentanyl for sedation. rass of -2-0. dc lisinopril. he also stated to get an abg one hour after intubation. stated to also do an ng or og and place a hackett. patient was updated on plan of care er md and respiratory called and given plan. er md at bedside at 1605. md pushed 20mg etomidate and 100mg succinylcholine at 1620, and patient intubated with a 7.5 et tube at 1625 that measured 26 at the gum. during this time a 16 korean hackett was placed obtaining 250ml of urine and sent down to lab for collection. 20 gauage iv obtained in r hand as well. checked placement with xray and noted change of color with co2 valve. bps during that time remained stable. after intubation patient began fighting vent and attempted to pull out so md gave 100mg iv propofol push at that time. manual bps remained within normal limits. patient did require max prpofol at that time while awaiting for fentanyl drip. fentanyl drip started per protocol. vent settings are volume 560, peep 10, ps 10, respiratory rate 20, fio2 100%. 1730- 18 korean ng placed in r nare at 55. 20 gauage iv in l hand and 20 gauge iv in r wrist obtained as well. patient bp also noted to be on lower end and md station baggage porter notified. obtained order for a 1000ml bolus of ns and to start maintenance fluids ns at 125ml/hr [id number]- WHILE ATTEMPTING TO SITUATE PATIENT AND GET ANOUTHER CHEST XRAY PATIENT DID WAKE UP AND ATTEMPT TO PULL OUT ET TUBE. PATIENT SEDATION INCREASED AT THAT TIME. DR BOSCH CALLED TO CHECK IN AND HE WAS INFORMED OF HIGHER REQUIREMENT OF SEDATION. STATED TO ORDER VERSED 5MG Q2HPRN FOR AGITATION. STATED IF BY MIDNIGHT HE WAS NOT GETTING MORE THAN 30 MINUTES OF REST AND NOT ALLOWING VENT TO WORK THEN TO SWITCH FROM PROPOFOL TO A VERSED DRIP AND CONTINUE WITH THE FENTANYL. MANUAL BPS AFTER INTUBATION RECTAL TEMP AFTER INTUBATION R ARM: 110/75 99.7 L ARM: 98/40
--- NOTE | 2020-03-29 21:49 | PC.NURSE ---
2129 dr. david notified of blood pressure trending downward with last two map < 65. new order received to start levophed drip. drip started at 2 mcq/min.
--- NOTE | 2020-03-29 22:33 | PC.NURSE ---
2215 levophed drip decreased to 1.5 mcq/min. fentanyl at 75 mcq and diprivan at 50 mcq.
--- NOTE | 2020-03-29 22:34 | PC.NURSE ---
1930 patient coughing and reaching for ett, respiratory rate 28per minute. fentanly drip increased to 50 mcq.
--- NOTE | 2020-03-29 22:34 | PC.NURSE ---
2000 pateint continues to cough and reach for ett, relaxes quicker than previous assessment. fentanyl increased to 75 mcq
--- NOTE | 2020-03-29 22:55 | PC.NURSE ---
levophed drip decreased to 1 mcq.
[2020-03-30] VITALS (109 sets, daily range): BP systolic 81–127; BP diastolic 40–98; PULSE 62–104; RESP 19–35; TEMP 37.2–38.6; O2SAT 81–100; BMI 34.7
--- NOTE | 2020-03-30 01:15 | PC.NURSE ---
0100 levophed drip decreased to 0.5 mcq.
--- NOTE | 2020-03-30 02:59 | PC.NURSE ---
0200 levophed drip increased back to 1 mcq. fentanyl dripremains at 75 mcq and diprivan drip remains at 50 mcq. pateitn will periodically awaken and cough but will quickly go back to sleep. patient sawken slightly with repositioning but quickly returns to sleep. resp rate remains at 20 with o2 sats 92-95% on 100% fio2 and a peep of 12.
--- NOTE | 2020-03-30 03:56 | PC.NURSE ---
patient moving more air throughout all lung vital,breath sounds remain more course throughout all vital and diminished in bases bilateral. hackett draining clear yellow urine. resting comfortably sedated with fentanyl at 75mcq and diprivan 50 mcq. bowel sounds hypoactive. cardiac cath rn shows sr with ivcd
[2020-03-30 05:12] LABS: Basophils # 0.1 K/mm3 (0-0.2); Basophils % 0.6 % (0.1-2.0); Eosinophils # 0.2 K/mm3 (0.0-0.4); Eosinophils % 1.9 % (0.1-12.0); Lymphocytes % 12.1 % (10-50); Mean Corpuscular HGB Conc 32.6 g/dL (31.8-35.4); Mean Corpuscular Volume 85.9 fl (80-94); Mean Platelet Volume 8.1 fl (7.4-10.4); Monocytes # 0.2 K/mm3 (0.1-1.0); Monocytes % 2.6 % (1.7-9.3); Neutrophils # 6.7 K/mm3 (1.8-7.8); Neutrophils % 82.7 % (37.0-80.0); Platelet Count 239 K/mm3 (142-424); Red Cell Distribution Width 14.4 % (11.5-17.5); White Blood Count 8.1 K/mm3 (4.8-10.8)
[2020-03-30 05:22] LABS: Alanine Aminotransferase 76 U/L (12-78); Albumin Level 2.9 g/dl (3.5-5.0); Alkaline Phosphatase 70 U/L (38-126); Anion Gap 9.6 mEq/L (5-15); Aspartate Amino Transferase 50 U/L (17-59); Bilirubin,Total 0.6 mg/dl (0.2-1.3); Blood Urea Nitrogen 29 mg/dl (9-20); Calcium 8.7 mg/dl (8.4-10.2); Carbon Dioxide 25 mmol/L (22.0-30.0); Chloride 110 mmol/L (98-107); Creatinine Clearance Estimated 110 mL/min (50-200); Estimated Glomerular Filt Rate 62 ml/min (>60); GFR (African American) 75 ML/MIN (>60); Magnesium 2.3 mg/dl (1.6-2.3); Potassium 3.6 mmoL/L (3.5-5.1); Sodium 141 mmol/L (136-145); Total Protein,Serum 5.9 g/dl (6.3-8.2)
--- NOTE | 2020-03-30 05:37 | PC.NURSE ---
Addendum entered by Mimi Pacheco RN 03/30/20 06:50: peep of 12 Original Note: 0430 patient woke extremely aggitated spontaneously, attempting to pull ett and ngt out, attempting to get up out of bed.attempted to calm patient, fentanyl 12.5 mcq bolus given iv and fentanyl drip increased to 100 mcq. patient continued to fight and hit at staff while staff attempting to protect airway. additional fentanyl 12.5 bolus given and fentanyl drip increased to 125 mcq. 0450 patient continuing extreme aggitation requiring 2 staff members to keep patient from removing tubes. additional staff called to unit. versed 5 mg ivp given while 2 satff member held patients hands to protect airway. 0500 patient beginning to calm. respiratory rate back down to 24 from 34. continues to be tense with grimace. 0515 patient lying calmly now, respiratory rate back down to 20. during episode o2 sats maintained 82% on fio2 100% and peep of 5, sats gradually increased back up to 91 as patient calmed.
--- NOTE | 2020-03-30 05:48 | PC.NURSE ---
0530 radiology in unit for portable cxr, rn requested to retime until 0630 to allow increased sedation medication to have time for full affect and when patient could have next dose of versed if needed.
[2020-03-30 05:52] LABS: Glucose 94 mg/dl (74-100)
[2020-03-30 06:13] LABS: ABG Base Excess -3.7 mmol/L (-2.4-2.3); ABG Oxygen Saturation 91 % (90-100); ABG PCO2 41.3 mmhg (35.0-45.0); ABG PH 7.35 mmol/L (7.35-7.45); ABG PO2 65.8 mmhg (80-100); ABG TCO2 23.3 mmhg (23-27)
[2020-03-30 06:15] LABS: Allen's Test Patient Unable; Oxygen 100% %; PEEP 12; Tidal Volume 560; Vent Rate 20
[2020-03-30 06:16] LABS: Source Right Radial
--- NOTE | 2020-03-30 06:29 | PC.NURSE ---
0600 patient finally calm, respiratory rate 20 , sats back at 91-92%. respiratory arrived to room for change of shift assessment and am abgs. patient became extremely aggitated again. 12.5 mcq fentanyl bolus given, patient remained calm during draw. radiology requested back at bedside since patient more sedated at this time. patient became mildly aggitated but calmed much easier not requiring fentanyl bolus at this time. patient sats drop to 82% with any stimulation, respiratory rate increases to 30 with any stimulation. once patient appropriately sedated again o2 sats return back up 89-90% within 15 min.bilateral breath sound auscultated several times over last two hour to confirm bilateral breath sounds due to patient thrashing around.
--- NOTE | 2020-03-30 06:30 | XR_ITS ---
PROCEDURE: XR CHEST PORTABLE March 30 at 6:30 a.m. Referring Doctor: Jaden Muniz Patient Age:59Y CLINICAL HISTORY: assess tube placement; Intubated dyspnea low O2 sats Bilateral pneumonia: Covid COMPARISON: CT CT ANGIO CHEST from 03/27/2020 CR XR CHEST PORTABLE from 03/29/2020 CR XR CHEST PORTABLE from 03/29/2020 CR XR CHEST PORTABLE from 03/29/2020 FINDINGS: AP portable supine CXR performed March 30 at 6:30 a.m... This is compared multiple studies from previous day March 29. NG tube remains satisfactory position, passing through the GE junction with tip projected over cardia/body of the stomach. It appears to perhaps very slight slightly advanced relative to yesterday's CXR study although more difficult to visualize today The ET tube remains in good position in the slightly lower with its tip approximately 4 cm above tina cm. Film is somewhat plant production manager Left chest: Again the diffuse fairly dense infiltrate left mid lung left base observed as the main feature. But the infiltrate at the left lung base is beginning to obscure the left hemidiaphragm. Only minor infiltrated to the left apex Right lung. Background of diffuse infiltrate throughout the right lung with denser patchy regions infiltrate again seen 1)at the periphery of the right mid lung and 2 )right infrahilar region/medial right lung base CXR.. Similar to yesterday's studies if not slightly improved at the upper lobes . There seems to be slightly less vascular engorgement than yesterday. . Heart of upper normal in size laura and mediastinal structures similar. conveyor monitor leads in place IMPRESSION: NG tube in place-adequate position. NG tip just entering stomach. NG tube more difficult to visualize today (Mica consider advancing NG tube for more secure position, particularly if feeding through NG tube) ET tube satisfactory position slightly more inferior position with tip 4 cm cm above tina Bilateral infiltrates again noted: Left chest: Fairly dense confluent infiltrate left mid lung to left lung base is now beginning to obscure the left hemidiaphragm. Right chest background of diffuse infiltrate with is perhaps slight improvement in the dense patchy area of infiltrate at the periphery of the right mid lung. Dense infiltrate persist right infrahilar region IMPRESSION: Dictated by: Karan Nicolas MD 03/30/2020 08:59 Karan Nicolas MD in [facility] 03/30/2020 08:59
--- NOTE | 2020-03-30 08:03 | HMH.ACPN2 ---
Internal Medicine - PN: Subj *Date: 03/30/20 *Time: 10:04 Interval history: Per documentation from yesterday, patient had worsening decompensation of his respiratory failure due to inability to keep his respiratory support in place. He became more confused and noncompliant. Decision was made to pursue intubation to improve oxygenation. Has done well overnight on fentanyl and Versed drips. Blood pressure became somewhat soft necessitating maintenance fluids and Levophed. Has maintained adequate urine output overnight of at least 30 cc an hour. Blood pressure maintained with MAP greater than 65. Comfortable on exam this morning. Reviewed x-ray, ET tube in appropriate position. NG in place. Sarah in place draining light yellow urine. Blood gas this morning reviewed, appropriate pH, PCO2. PaO2 of 65. Improved somewhat over gas from yesterday. Afebrile and hemodynamically stable. Exam Vital signs and Labs for Last 24 Hours: Temp Pulse Resp BP Pulse Ox 99.2 F 79 20 88/49 L 95 03/30/20 03:44 03/30/20 06:57 03/30/20 06:57 03/30/20 06:57 03/30/20 07:45 Laboratory Results - last 24 hr 03/29/20 15:14: Specimen Source Right radial, O2 % 100%, ABG pH 7.42, ABG pCO2 32.4 L, ABG pO2 56.7 L, ABG HCO3 20.3 L, ABG Total CO2 21.3 L, ABG O2 Saturation 90, ABG Base Excess -4.2 L, Dagoberto Test Acceptable, Vent Rate 16, Tidal Volume bipap 14/8 03/29/20 16:45: Urine Color Yellow, Urine Appearance Clear, Urine pH 6.0, Ur Specific Libby 1.025, Urine Protein Negative, Urine Glucose (UA) Negative, Urine Ketones Negative, Urine Blood Negative, Urine Nitrate Negative, Urine Bilirubin Negative, Urine Urobilinogen 0.2, Ur Leukocyte Esterase Negative, Urine WBC 5-10, Amorphous Sediment Trace 03/29/20 17:30: Specimen Source Right radial, O2 % 100, ABG pH 7.37, ABG pCO2 35.3, ABG pO2 55.0 L, ABG HCO3 19.9 L, ABG Total CO2 21.0 L, ABG O2 Saturation 88 L, ABG Base Excess -5.4 L, Dagoberto Test Patient unable, Vent Rate 20, Tidal Volume 560, PEEP 10 03/30/20 04:45: WBC 8.1, RBC 4.30 L, Hgb 12.0 L, Hct 37.0 L, MCV 85.9, MCH 28.0, MCHC 32.6, RDW 14.4, Plt Count 239, MPV 8.1, Neut % (Auto) 82.7 H, Lymph % (Auto) 12.1, [place] % (Auto) 2.6, Eos % (Auto) 1.9, Baso % (Auto) 0.6, Neut # (Auto) 6.7, Lymph # (Auto) 1.0, [place] # (Auto) 0.2, Eos # (Auto) 0.2, Baso # (Auto) 0.1 03/30/20 04:45: Sodium 141, Potassium 3.6, Chloride 110 H, Carbon Dioxide 25, Anion Gap 9.6, BUN 29 H, Creatinine 1.20 D, Estimated Creat Clear 110, Estimated GFR 62, Est GFR ( Amer) 75 D, Glucose 94 D, Calcium 8.7, Magnesium 2.3, Total Bilirubin 0.6, AST 50 D, ALT 76 D, Alkaline Phosphatase 70, Total Protein 5.9 L, Albumin 2.9 L, Globulin 3.0, Albumin/Globulin Ratio 1.0 L 03/30/20 06:00: Specimen Source Right radial, O2 % 100%, ABG pH 7.35, ABG pCO2 41.3, ABG pO2 65.8 L, ABG HCO3 22.0, ABG Total CO2 23.3, ABG O2 Saturation 91, ABG Base Excess -3.7 L, Dagoberto Test Patient unable, Vent Rate 20, Tidal Volume 560, PEEP 12 I & O for Last 24 hours: Intake & Output 03/27/20 03/28/20 03/29/20 03/30/20 23:59 23:59 23:59 23:59 Intake Total 2019 1210 / 1210 2870 / 2870 191 / 191 Output Total 1575 / 1575 1701 / 1701 700 / 700 340 / 340 Balance 445 / 685 -491 / -491 2170 / 2170 157 / 1572 Weight 121.364 kg 118.586 kg 119 kg 119 kg Microbiology Reports for the Last 24 Hours: Microbiology 03/28/20 19:40 Sputum - Expectorated Sputum Gram Stain - Final 03/28/20 19:40 Sputum - Expectorated Sputum Sputum Culture - Preliminary 03/29/20 16:42 Sputum - Endotracheal Tube Aspirate Gram Stain - Final - Constitutional mild distress Comments: sedated, intubated - *Routine HEENT Exam Head: Present: normocephalic Eye: Present: EOMI, PERRL ENT: Present: mucous membranes moist, oropharynx clear Comments: ETT 26cm at gums - *Routine Neck Exam Present: supple. Absent: lymphadenopathy - *Routine Respiratory Exam Present: patient mechanically ventilated, crackles - *
--- NOTE | 2020-03-30 08:30 | PC.NURSE ---
Addendum entered by Isa Gorman RN 03/30/20 11:25: * correction gtt was increased @ 0730 Original Note: Levo gtt increased to 2 mcg/min
--- NOTE | 2020-03-30 09:17 | DIET.NUTRFU ---
Pt has been intubated and nutrition consult has been entered to initiate tube feeds. Recommend beginning pt on Pulmocare TF at 25mL/hr continuous and increasing as tolerated to goal rate of 60mL/hr continuous. Pulmocare at goal rate of 60mL/hr will provide pt 2,160kcal, 90g protein, and 1,130mL free H2O per day. This recommendation will meet ASPEN guidelines. Will monitor for TF tolerance, pt needs, and adjust fluids as needed.
--- NOTE | 2020-03-30 11:09 | PC.NURSE ---
Addendum entered by Isa Gorman RN 03/30/20 15:09: Prior to admin of tube feeds NG was advanced to 60 cm per rec of CXR. Original Note: Tube feeds initiated per orders @ 1100. No output from NG prior to starting feeds. Will check residual @ 1700. Diprivan off and Versed gtt started @ 1105. Pt tolerating well, resting comfortably. No alarm activated on vent. Will continue to monitor.
--- NOTE | 2020-03-30 11:15 | PC.NURSE ---
Levo gtt put on standby at this time w/ intent that Levo gtt may be able to be DC'd now that propofol has been stopped. Will continue to monitor.
--- NOTE | 2020-03-30 11:21 | PC.NURSE ---
Levo gtt increased to 2 mcg/min @ this time
--- NOTE | 2020-03-30 11:41 | HMH.ACPN ---
Internal Medicine - PN: Subj *Date: 03/30/20 *Time: 11:41 Exam Vital signs and Labs for Last 24 Hours: Temp Pulse Resp BP Pulse Ox 99.5 F 78 20 95/51 L 90 L 03/30/20 08:00 03/30/20 11:30 03/30/20 11:30 03/30/20 11:30 03/30/20 11:30 Laboratory Results - last 24 hr 03/29/20 15:14: Specimen Source Right radial, O2 % 100%, ABG pH 7.42, ABG pCO2 32.4 L, ABG pO2 56.7 L, ABG HCO3 20.3 L, ABG Total CO2 21.3 L, ABG O2 Saturation 90, ABG Base Excess -4.2 L, Dagoberto Test Acceptable, Vent Rate 16, Tidal Volume bipap 14/8 03/29/20 16:45: Urine Color Yellow, Urine Appearance Clear, Urine pH 6.0, Ur Specific [place] 1.025, Urine Protein Negative, Urine Glucose (UA) Negative, Urine Ketones Negative, Urine Blood Negative, Urine Nitrate Negative, Urine Bilirubin Negative, Urine Urobilinogen 0.2, Ur Leukocyte Esterase Negative, Urine WBC 5-10, Amorphous Sediment Trace 03/29/20 17:30: Specimen Source Right radial, O2 % 100, ABG pH 7.37, ABG pCO2 35.3, ABG pO2 55.0 L, ABG HCO3 19.9 L, ABG Total CO2 21.0 L, ABG O2 Saturation 88 L, ABG Base Excess -5.4 L, Dagoberto Test Patient unable, Vent Rate 20, Tidal Volume 560, PEEP 10 03/30/20 04:45: WBC 8.1, RBC 4.30 L, Hgb 12.0 L, Hct 37.0 L, MCV 85.9, MCH 28.0, MCHC 32.6, RDW 14.4, Plt Count 239, MPV 8.1, Neut % (Auto) 82.7 H, Lymph % (Auto) 12.1, [place] % (Auto) 2.6, Eos % (Auto) 1.9, Baso % (Auto) 0.6, Neut # (Auto) 6.7, Lymph # (Auto) 1.0, [place] # (Auto) 0.2, Eos # (Auto) 0.2, Baso # (Auto) 0.1 03/30/20 04:45: Sodium 141, Potassium 3.6, Chloride 110 H, Carbon Dioxide 25, Anion Gap 9.6, BUN 29 H, Creatinine 1.20 D, Estimated Creat Clear 110, Estimated GFR 62, Est GFR ( Amer) 75 D, Glucose 94 D, Calcium 8.7, Magnesium 2.3, Total Bilirubin 0.6, AST 50 D, ALT 76 D, Alkaline Phosphatase 70, Total Protein 5.9 L, Albumin 2.9 L, Globulin 3.0, Albumin/Globulin Ratio 1.0 L 03/30/20 06:00: Specimen Source Right radial, O2 % 100%, ABG pH 7.35, ABG pCO2 41.3, ABG pO2 65.8 L, ABG HCO3 22.0, ABG Total CO2 23.3, ABG O2 Saturation 91, ABG Base Excess -3.7 L, Dagoberto Test Patient unable, Vent Rate 20, Tidal Volume 560, PEEP 12 I & O for Last 24 hours: Intake & Output 03/27/20 03/28/20 03/29/20 03/30/20 23:59 23:59 23:59 23:59 Intake Total 2020 / 2260 1210 / 1210 2870 / 2870 2612 / 2612 Output Total 1575 / 1575 1701 / 1701 700 / 700 470 / 470 Balance 445 / 685 -491 / -491 2170 / 2170 2142 / 2142 Weight 121.364 kg 118.586 kg 119 kg 119 kg Microbiology Reports for the Last 24 Hours: Microbiology 03/28/20 19:40 Sputum - Expectorated Sputum Gram Stain - Final 03/28/20 19:40 Sputum - Expectorated Sputum Sputum Culture - Preliminary 03/29/20 16:42 Sputum - Endotracheal Tube Aspirate Gram Stain - Final Assessment and Plan (1) Acute hypoxemic respiratory failure due to COVID-19 Status: Acute Category: Medical Code(s): U07.1 - COVID-19; J96.01 - Acute respiratory failure with hypoxia (2) ELIZABETH (acute kidney injury) Status: Acute Category: Medical Code(s): N17.9 - Acute kidney failure, unspecified (3) COVID-19 Status: Acute Category: Medical Code(s): U07.1 - COVID-19 (4) Leukopenia Status: Acute Category: Medical Code(s): D72.819 - Decreased white blood cell count, unspecified (5) Lobar pneumonia Status: Acute Category: Medical Code(s): J18.1 - Lobar pneumonia, unspecified organism (6) Reduced ejection fraction concurrent with and due to acute heart failure Status: Acute Category: Medical Code(s): I50.21 - Acute systolic (congestive) heart failure The patient's infection will respond to the chosen ABx?: Yes Is the patient receiving the right drug, dose, and route?: Yes Could a more targeted ABx be ordered?: No
--- NOTE | 2020-03-30 15:13 | PC.NURSE ---
1245 - RT in w/ pt to admin albuterol treatment. Pt began thrashing and pulling at tube. 3 staff members at bedside to keep pt from mally tube, mits applied and Versed gtt increased to 0.04 mg/hr. SPO2 decreases to 80% at this time, w/ resp rate increasing to 24-30/min. 1250 - Pt continues to pull and thrash arms requiring staff for safety, Versed gtt increased to 0.08 mg/hr 1300 - Staff remain at bedside versed gtt increased to 0.1 mg/hr for aggitation and biting of tube. Versed gtt remains @ 0.1 mg/hr. SPO2 slow to recover after this period of agitation as noted by VS. Pt currently resting, CPOT =1 at this time.
--- NOTE | 2020-03-30 16:07 | PC.NURSE ---
Pt remains on vent w/ no changes to settings this shift (Assist control w/ rate - 20, TV - 560, Peep - 12 & FIO2 - 100%). Sats typically > 90%, w/ some stimulation and when pt is agitated sats will decrease to 84-86% and take about 15-20 minutes to recover. Lungs remain coarse throughout w/ good air movement noted in all vital. Secretions have been minimal (clear thin), has been both suctioned using in-line as well as yaunker throughout shift. #7.5 ETT remains 26 @ lip, was moved @ 1600 to midline position. HR is regular, ranging 70-90 bpm. BBB noted on tely. No edema present. Abdomen soft, round w/ active BS in all quads. Pt did have one BM this shift. NGT @ 60 cm to (R) nare. Pulmocare @ 25 mls/hr, pt tolerating well. Sarah cath to drain at bedside w/ clear drk yellow urine noted. UOP adequate. Skin is intact w/ no breakdown noted. Pt has been turned and extremities repositioned Q2H. Pt did receive a total linen change, but was not bathed d/t pt becoming agitated w/ interventions at this time. Pt's room cleaned and mopped this shift by staff. called this afternoon to check on pt and was updated on current plan of care. Bed alarm in place. Mits on pt to prevent dislodging of ETT. Pt is currently resting in bed tolerating vent. GTT @ this time are as follows: Fentanyl 125 mcg/hr Versed @ 0.1 mg/kg/hr Levophed remains off at this time, w/ MAP sustaining greater than >65.
--- NOTE | 2020-03-30 18:20 | PC.NURSE ---
Pt's BP trending down, Levo gtt restarted @ 1 mcg/min.
--- NOTE | 2020-03-30 20:43 | PC.NURSE ---
levophed drip increased to 2 mcq due to map less than 65. patient temp 101.4, ibuprofen given per ngt
--- NOTE | 2020-03-30 20:44 | PC.NURSE ---
2030 sys bp 81 with map 55, levophed increased to 4 mcq
--- NOTE | 2020-03-30 22:41 | PC.NURSE ---
levophed drip decreased to 3.5 mcq. temp remains greater than 100, 650 mg tylenol given per ngt.
[2020-03-31] VITALS (86 sets, daily range): BP systolic 92–126; BP diastolic 48–68; PULSE 70–95; RESP 20–25; TEMP 36.8–37.9; O2SAT 80–95; BMI 36.4
--- NOTE | 2020-03-31 00:25 | PC.NURSE ---
patient desats with slightest position change to 88%. patient wakes and moves arms but quickly goes back to sleep with slightest position change
--- NOTE | 2020-03-31 01:05 | PC.NURSE ---
levophed decreased to 3 mcq.
--- NOTE | 2020-03-31 03:06 | PC.NURSE ---
0200 levo decreased to 2.5 mcq
[2020-03-31 04:20] LABS: Basophils % 0.4 % (0.1-2.0); Eosinophils # 0.2 K/mm3 (0.0-0.4); Eosinophils % 3.6 % (0.1-12.0); Hematocrit 36.8 % (42.0-52.0); Lymphocytes # 0.7 K/mm3 (0.7-4.5); Lymphocytes % 10.1 % (10-50); Mean Corpuscular HGB Conc 32.7 g/dL (31.8-35.4); Mean Corpuscular Hemoglobin 28.2 pg (27.0-31.2); Mean Corpuscular Volume 86.2 fl (80-94); Mean Platelet Volume 8.5 fl (7.4-10.4); Monocytes # 0.2 K/mm3 (0.1-1.0); Monocytes % 2.9 % (1.7-9.3); Neutrophils # 5.5 K/mm3 (1.8-7.8); Platelet Count 207 K/mm3 (142-424); Red Blood Count 4.27 M/mm3 (4.60-6.20); Red Cell Distribution Width 14.9 % (11.5-17.5); White Blood Count 6.7 K/mm3 (4.8-10.8)
[2020-03-31 04:25] LABS: Chloride 114 mmol/L (98-107)
[2020-03-31 04:26] LABS: Sodium 142 mmol/L (136-145)
[2020-03-31 04:28] LABS: Alanine Aminotransferase 57 U/L (12-78); Aspartate Amino Transferase 72 U/L (17-59); Bilirubin,Total 0.7 mg/dl (0.2-1.3); Blood Urea Nitrogen 30 mg/dl (9-20); Creatinine Clearance Estimated 102 mL/min (50-200); Estimated Glomerular Filt Rate 56 ml/min (>60); GFR (African American) 68 ML/MIN (>60)
[2020-03-31 04:29] LABS: Albumin Level 2.7 g/dl (3.5-5.0); Albumin/Globulin Ratio 0.9 (1.1-1.8); Alkaline Phosphatase 83 U/L (38-126); Calcium 8.2 mg/dl (8.4-10.2); Carbon Dioxide 24 mmol/L (22.0-30.0); Globulin 2.9 g/dL (1.3-3.2); Glucose 106 mg/dl (74-100); Magnesium 2.4 mg/dl (1.6-2.3); Total Protein,Serum 5.6 g/dl (6.3-8.2)
--- NOTE | 2020-03-31 05:07 | PC.NURSE ---
levophed decreased to 2 mcq
--- NOTE | 2020-03-31 06:00 | XR_ITS ---
PROCEDURE: XR CHEST PORTABLE Referring Doctor: Jaden Muniz Patient Age:59Y CLINICAL HISTORY: ETT tube placement, Assess ARDS ET tube 6 cm above tina. COMPARISON: CT CT ANGIO CHEST from 03/27/2020 CR XR CHEST PORTABLE from 03/29/2020 CR XR CHEST PORTABLE from 03/29/2020 CR XR CHEST PORTABLE from 03/30/2020 FINDINGS: Bilateral infiltrates. Left chest: Similar distribution of dense infiltrate/airspace disease left lung. Airspace disease most evident at left mid lung and left base with air bronchograms slightly more evident. No improvement. If anything slight progression of the lung density and consolidation at the left lower lobe. Right chest:. Similar distribution of infiltrate again seen on right. No improvement. Suggestion perhaps very slight increased density of the infiltrate at the right lung base further obscuring the right hemidiaphragm. The more confluent density along extends on the lateral aspect of the right lung into the right mid lung but this appears similar if not slightly denser. Question very slight less vascular congestion and prominence particularly on right. surveillance monitor leads in place but. Chest wall unremarkable IMPRESSION: ET tube remain satisfactory position just less than 6 cm above tina Extensive bilateral infiltrates. Similar distribution. If anything anything, slight increased density of infiltrates at lung bases.. Increasing dense consolidation yields more evident air bronchograms at the left perihilar region and left lung base. Dictated by: Karan Nicolas MD 03/31/2020 13:07 Karan Nicolas MD in [place] 03/31/2020 13:07
--- NOTE | 2020-03-31 08:26 | HMH.ACPN2 ---
Internal Medicine - PN: Subj *Date: 03/31/20 *Time: 09:25 Interval history: Patient stable overnight, however had an episode of fever that responded well to Tylenol and ibuprofen. Continues to require Levophed to maintain blood pressure map above 65. Stable tolerance of ventilator. Has done well overnight on fentanyl and Versed drips. Has maintained adequate urine output overnight of at least 30 cc an hour. Comfortable on exam this morning. Reviewed x-ray, ET tube in appropriate position. NG in place, advanced from yesterday's image prior to initiating tube feeds. Better placement this morning. Sarah in place draining light yellow urine. Blood gas this morning reviewed, appropriate pH, PCO2. PaO2 of mid 50s with respiratory acidosis, Worsened somewhat compared to gas from yesterday. Afebrile and hemodynamically stable. Exam Vital signs and Labs for Last 24 Hours: Temp Pulse Resp BP Pulse Ox 98.2 F 76 20 116/58 L 89 L 03/31/20 08:00 03/31/20 08:00 03/31/20 08:00 03/31/20 08:00 03/31/20 08:00 Laboratory Results - last 24 hr 03/31/20 04:10: WBC 6.7, RBC 4.27 L, Hgb 12.0 L, Hct 36.8 L, MCV 86.2, MCH 28.2, MCHC 32.7, RDW 14.9, Plt Count 207, MPV 8.5, Neut % (Auto) 83.0 H, Lymph % (Auto) 10.1, [place] % (Auto) 2.9, Eos % (Auto) 3.6, Baso % (Auto) 0.4, Neut # (Auto) 5.5, Lymph # (Auto) 0.7, [place] # (Auto) 0.2, Eos # (Auto) 0.2, Baso # (Auto) 0.0 03/31/20 04:10: Sodium 142, Potassium 4.0, Chloride 114 H, Carbon Dioxide 24, Anion Gap 8.0, BUN 30 H, Creatinine 1.30 H, Estimated Creat Clear 102, Estimated GFR 56 L, Est GFR ( Amer) 68, Glucose 106 H, Calcium 8.2 L, Magnesium 2.4 H, Total Bilirubin 0.7, AST 72 H D, ALT 57, Alkaline Phosphatase 83, Total Protein 5.6 L, Albumin 2.7 L, Globulin 2.9, Albumin/Globulin Ratio 0.9 L I & O for Last 24 hours: Intake & Output 03/28/20 03/29/20 03/30/20 03/31/20 23:59 23:59 23:59 23:59 Intake Total 1210 / 1210 2870 / 2870 4203 / 4203 2534 / 2534 Output Total 1701 / 1701 700 / 700 1035 / 1035 540 / 540 Balance -491 / -491 2170 / 2170 3168 / 3168 1993 Weight 118.586 kg 119 kg 119 kg 124.8 kg Microbiology Reports for the Last 24 Hours: Microbiology 03/28/20 19:40 Sputum - Expectorated Sputum Gram Stain - Final 03/28/20 19:40 Sputum - Expectorated Sputum Sputum Culture - Preliminary 03/29/20 16:42 Sputum - Endotracheal Tube Aspirate Gram Stain - Final 03/29/20 16:42 Sputum - Endotracheal Tube Aspirate Sputum Culture - Preliminary Narrative: - Constitutional On mechanical ventilation, sedated, intubated - *Routine HEENT Exam Head: Present: normocephalic Eye: Present: EOMI, PERRL ENT: Present: mucous membranes moist, oropharynx clear Comments: ETT 26cm at gums - *Routine Neck Exam Present: supple. Absent: lymphadenopathy - *Routine Respiratory Exam Present: patient mechanically ventilated, crackles - *Routine Cardiovascular Exam Present: RRR - *Routine Abdominal Exam Present: soft, normoactive bowel sounds. Absent: tenderness - *Routine Extremities Exam Absent: cyanosis, clubbing, edema - *Routine Skin Exam Present: warm. Absent: rash - *Routine Neurological Exam sedated, responds to painful stimuli Assessment and Plan (1) Acute hypoxemic respiratory failure due to COVID-19 Status: Acute Category: Medical Code(s): U07.1 - COVID-19; J96.01 - Acute respiratory failure with hypoxia (2) ELIZABETH (acute kidney injury) Status: Acute Category: Medical Code(s): N17.9 - Acute kidney failure, unspecified (3) COVID-19 Status: Acute Category: Medical Code(s): U07.1 - COVID-19 (4) Leukopenia Status: Acute Category: Medical Code(s): D72.819 - Decreased white blood cell count, unspecified (5) Lobar pneumonia Status: Acute Category: Medical Code(s): J18.1 - Lobar pneumonia, unspecified organism (6) Reduced ejection fraction concurrent with and due to acute heart failure Status: Acute Cat
[2020-03-31 08:37] LABS: ABG Base Excess -6.1 mmol/L (-2.4-2.3); ABG HCO3 20.9 mmhg (22.0-26.0); ABG Oxygen Saturation 87 % (90-100); ABG PCO2 47.1 mmhg (35.0-45.0); ABG PH 7.27 mmol/L (7.35-7.45); ABG PO2 54.4 mmhg (80-100); ABG TCO2 22.3 mmhg (23-27)
[2020-03-31 08:39] LABS: Allen's Test Patient Unable; Oxygen 100 %; PEEP 12; Source Right Radial; Tidal Volume 560; Vent Rate 20
--- NOTE | 2020-03-31 08:50 | PC.NURSE ---
Addendum entered by Isa Gorman RN 03/31/20 09:13: Verbal order to change IVF to LR @ 75 mls/hr and DC Potassium. ABG is to be obtained @ 1200 today. RT aware of vent settings and ABG. Original Note: Dr. Muniz @ bedside at this time, turning resp rate on vent to 24.
--- NOTE | 2020-03-31 09:10 | PC.NURSE ---
changed RR to 24 at this time, ABG to be drawn @ noon
--- NOTE | 2020-03-31 09:17 | HMH.DCSUM ---
General - General Admission date:: 03/20/20 Discharge date: 04/02/20 HPI HPI: 59yo M evaluated with concern for coronavirus. Patient is in no acute distress on initial presentation. Differential diagnosis includes but is not limited to: Coronavirus, other viral illness, CHF exacerbation, sinusitis. Labs are pending at this time. Patient also had some concern for unexplained bruising to his abdominal wall. Has a known history of fatty liver but denies taking blood thinners. CMP was ordered to further evaluate liver function. Pt has had O2 sat's of 88-92% RA. Placed on supplemental O2. Called PCP for admission. Dr. Singh agrees w/ admission. Additional labs ordered and negative upon completion. Pt's COVID test returned positive. Above note per emergency department. Patient's abdominal wall bruising has been a long-term problem over the past 6 weeks. I saw him for this several weeks ago and did platelet count of blood counts which were normal. Patient's O2 saturations prompted admission with Covid testing which was positive, along with the initiation of Levaquin therapy for possible bacterial pneumonia. Also with acute kidney injury that will be treated with fluid resuscitation. Hospital Course Hospital Course: Mr. Boyd is a 59-year-old gentleman who was admitted on March 20 due to respiratory distress, new oxygen requirement, and positive COVID-19 test result. Admitted to isolation unit. Had progressively increasing oxygen requirement over the course of his hospitalization with goal of limiting or avoiding intubation if at all possible. Unfortunately after 4 days of maximal noninvasive therapy on a mix of Vapotherm during the day and BiPAP at night, patient was not meeting adequate oxygenation with inability to get saturations above mid 80s. He was also very intolerant of noninvasive therapy and repeatedly taking off his support devices, even breaking his BiPAP mask at one point. Decision was made to intubate for improved oxygenation and sedation to allow his body to rest and maximize oxygenation potential. Intubation performed on 03/31/2020. Has required persistent increase in PEEP to try and improve oxygenation. Patient remained critically ill. Discussion with , [place] over the past 3 days for potential transfer. Patient except about 3 institutions but unfortunately on a wait list. At this time he is remained critically ill with stable oxygen saturation and severe ARDS. Continued with maximal antiviral and antibiotic therapy. Problems addressed as follows. 59-year-old male with acute hypoxemic respiratory failure and severe ARDS due to COVID-19 pneumonia. First diagnosis of COVID-19 on 03/20 (13 days ago), however had been having symptoms since 03/16/20 per pt/. Patient intubated on the evening of 03/29 due to worsening hypoxia and intolerance of maximal noninvasive respiratory support: Plan as follows - Nutrition consulted, tube feeds per orders. Feeds at goal. Stop IV fluids today given stable blood pressure and adequate urine output. Concern IV fluids leading to volume overload. Will reevaluate daily. - Ventilator setting: mode switch from volume control to spontaneous breathing today. Patient tolerating well with better synchrony with the vent. Appears more comfortable. We will continue spontaneous breathing with PEEP increased to 14 through the day. Plan to switch back to volume control either if patient shows signs of fatigue or this evening. Patient pulling volumes between 700 and 900 cc. Backup rate of volume control, rate 20, volume 640 (8 cc/kg ideal body weight), FiO2 100%, PEEP 14. - Therapeutic Lovenox - Continue broad-spectrum antibiotics as ordered, continue steroids and vitamins/supplements per COVID-19 protocol. - Continue Remdesivir for COVID-19 antiviral treatment -Inflammatory markers obtained today, unfortunately they are increasing. -Stop Levophed within the pa
--- NOTE | 2020-03-31 10:14 | PC.NURSE ---
1014 - Dr. Muniz called to floor and states that pt has been accepted and is on waiting list @ [facility]. called to get update on pt this AM, was updated on plan of care and made aware that pt is awaiting bed @ [facility].
--- NOTE | 2020-03-31 10:40 | PC.NURSE ---
1030 - Levo gtt decreased to 1 mcg/min at this time
[2020-03-31 13:14] LABS: ABG Base Excess -6.1 mmol/L (-2.4-2.3); ABG HCO3 20.6 mmhg (22.0-26.0); ABG Oxygen Saturation 90 % (90-100); ABG PCO2 44.7 mmhg (35.0-45.0); ABG PH 7.28 mmol/L (7.35-7.45); ABG PO2 59.9 mmhg (80-100)
[2020-03-31 13:16] LABS: Allen's Test Patient Unable; Oxygen 100 %; PEEP 12; Source Right Radial; Tidal Volume 560; Vent Rate 24
--- NOTE | 2020-03-31 13:20 | PC.NURSE ---
Received call from Dr. Muniz at this time. He has reviewed ABG and no changes to vent settings at this time.
--- NOTE | 2020-03-31 16:13 | PC.NURSE ---
Pt remains on [facility] vent w/ settings as follows: Assist Control PEEP -12, Rate - 24, TV - 560, FIO2 - 100%. Tolerating rate increase well. #7.5 ETT 26 cm @ lip, was moved @ 1600 to left position. Lungs diminished in bilat low lobes. Secretions continue to be minimal ( white, thin), pt has been suctioned using both in-line and yaunker. Oral care performed Q2H. HR is regular, ranging 70-80 bpm. BBB noted on tely. Abdomen soft, round w/ active BS in all quads. No BM this shift. NGT @ 60 cm to (R) nare. Pulmocare @ 60 mls/hr (goal). Pt is tolerating well w/ no residual at check. Sarah cath to drain at bedside w/ clear dark yellow urine noted. Noted increase in UOP compare to yesterday. Skin is intact. Requires turning and repositioning Q2H. W/ repositioning pt does de-sat to 87-88% but will recover to low 90's. Pt currently resting in bed w/ no alarm on vent activated. RASS -2, CPOT 0. Bed alarm in place. GTT @ this time are as follows: Fentanyl @ 125 mcg/hr Versed @ 0.1 mg/kg/hr Levo off @ this time, MAP sustaining > 65.
--- NOTE | 2020-03-31 16:30 | PC.NURSE ---
Spoke w/ Tiffany @ [facility], no bed available for pt at this time.
[2020-04-01] VITALS (35 sets, daily range): BP systolic 93–119; BP diastolic 52–67; PULSE 75–107; RESP 22–30; TEMP 37.1–38.1; O2SAT 83–95; BMI 36.9
--- NOTE | 2020-04-01 00:05 | PC.NURSE ---
Addendum entered by Mimi Pacheco RN 04/01/20 00:20: continue awaiting bed at . Original Note: 2300 patient suctioned, small amount of thick white secretions obtained. peak pressures increased to 72 while suctioning and remained in the 70s for approximately 1 minute, tv less 100, o2 sats dropped to 76%. respiratory therapy called. ambu bag at bedside. breath sounds auscultated, good air movement throughout all vital, course and diminished. patietn breathing 30 times a minute. accessory muscles being used. fio2 100%, peep of 12, rr of 24 on ac. respiratory therapy made adjustment from a/c to simv fentanyl drip increased to [address] david notified of deteration with decrease in o2 sats to 87% and holding with peep pressures high 40s to low 50s and tv approximately 500. no new orders received.
--- NOTE | 2020-04-01 01:19 | PC.NURSE ---
Addendum entered by Mimi Pacheco RN 04/01/20 01:23: vewrsed drip also increased to .15mg for respiratory rate 30 and coughing Original Note: patient continues to have periods where peak pressure increase, tv decrease and o2 sats drop into the low 70s. vent settings adjusted pateint will recover up to the mid to high 80s. patient continues to move air bilaterally throughout all vital. patient temp is 99.8 axillary and noticable shivering noted. pateint given 650 mg tylenol down ngt. continues to have clear, yellow urine output.
--- NOTE | 2020-04-01 01:45 | PC.NURSE ---
suzette continues to breath 31 times a minute. versed drip turned back to .1 mg.
--- NOTE | 2020-04-01 03:05 | PC.NURSE ---
patient no longer shivering, heart rate has been increasing over the last few hours. temp now increased up to 100.5 after tylenol administered. 600 mg motrin given
[2020-04-01 04:37] LABS: Basophils % 0.3 % (0.1-2.0); Eosinophils # 0.1 K/mm3 (0.0-0.4); Eosinophils % 0.9 % (0.1-12.0); Hematocrit 37.3 % (42.0-52.0); Hemoglobin 11.9 g/dL (14.1-18.0); Lymphocytes # 0.4 K/mm3 (0.7-4.5); Lymphocytes % 5.9 % (10-50); Mean Corpuscular HGB Conc 31.8 g/dL (31.8-35.4); Mean Corpuscular Hemoglobin 27.5 pg (27.0-31.2); Mean Corpuscular Volume 86.5 fl (80-94); Mean Platelet Volume 8.7 fl (7.4-10.4); Monocytes # 0.3 K/mm3 (0.1-1.0); Monocytes % 3.5 % (1.7-9.3); Neutrophils # 6.6 K/mm3 (1.8-7.8); Neutrophils % 89.4 % (37.0-80.0); Platelet Count 186 K/mm3 (142-424); Red Blood Count 4.32 M/mm3 (4.60-6.20); White Blood Count 7.4 K/mm3 (4.8-10.8)
[2020-04-01 04:40] LABS: MANUAL DIFFERENTIAL MANUAL DIFFERENTIAL (MANUAL DIFF)
[2020-04-01 04:48] LABS: Alanine Aminotransferase 45 U/L (12-78); Albumin Level 2.6 g/dl (3.5-5.0); Albumin/Globulin Ratio 0.9 (1.1-1.8); Alkaline Phosphatase 91 U/L (38-126); Anion Gap 7.2 mEq/L (5-15); Aspartate Amino Transferase 74 U/L (17-59); Bilirubin,Total 0.5 mg/dl (0.2-1.3); Blood Urea Nitrogen 27 mg/dl (9-20); Calcium 8.5 mg/dl (8.4-10.2); Carbon Dioxide 27 mmol/L (22.0-30.0); Chloride 112 mmol/L (98-107); Creatinine Clearance Estimated 139 mL/min (50-200); Estimated Glomerular Filt Rate 76 ml/min (>60); GFR (African American) 92 ML/MIN (>60); Globulin 2.9 g/dL (1.3-3.2); Glucose 108 mg/dl (74-100); Magnesium 2.5 mg/dl (1.6-2.3); Potassium 4.2 mmoL/L (3.5-5.1); Sodium 142 mmol/L (136-145); Total Protein,Serum 5.5 g/dl (6.3-8.2)
[2020-04-01 04:55] LABS: Hypochromasia 1+; Lymphocytes % 6 % (10-50); Monocytes % 1 % (2-9); Neutrophils % 86 % (42-76); Platelet Estimate Normal; Rouleaux 1+; Total Cells Counted 100
--- NOTE | 2020-04-01 05:46 | PC.NURSE ---
temperature back up to 100.5 tylenol 650 mg given. o2 sats have been maintaining 85-88% over the last few hours vent setting ac pc rate of 24, tv 560, ps 10 fio2 100%. breaths sounds course but diminished throughout all vital. patient tolerating tube feeding. patient will slightly move and cough when performing patient care.
--- NOTE | 2020-04-01 06:00 | XR_ITS ---
PROCEDURE: XR CHEST PORTABLE CLINICAL HISTORY: Tube placement Respiratory failure, COVID 19 pneumonia COMPARISON: CT CT ANGIO CHEST from 03/27/2020 CR XR CHEST PORTABLE from 03/29/2020 CR XR CHEST PORTABLE from 03/30/2020 CR XR CHEST PORTABLE from 03/31/2020 FINDINGS: 0544 hours. Endotracheal tube in good position 6 cm above the tina. Nasogastric tube is present. The tip is not visible on the film but is below the GE junction. There remains diffuse bilateral alveolar disease consistent with diffuse pneumonia overall not significantly changed. No evidence of pneumothorax. IMPRESSION: Endotracheal tube and nasogastric tube in good position with no change in the diffuse bilateral pneumonia Dictated by: Dagoberto Contreras MD 04/01/2020 07:17 Dagoberto Contreras MD in [place] 04/01/2020 07:17
[2020-04-01 07:02] LABS: ABG HCO3 23.1 mmhg (22.0-26.0); ABG Oxygen Saturation 81 % (90-100); ABG PCO2 45.4 mmhg (35.0-45.0); ABG PH 7.32 mmol/L (7.35-7.45); ABG TCO2 24.5 mmhg (23-27)
[2020-04-01 07:33] LABS: Allen's Test Patient Unable; Oxygen 100 %; PEEP 12; Pressure Support 8; Source Left Radial; Tidal Volume 560; Vent Rate 24
[2020-04-01 07:34] LABS: ABG PO2 44.6 mmhg (80-100)
--- NOTE | 2020-04-01 08:00 | PC.NURSE ---
gastric residual @ 0800 is 30mL
--- NOTE | 2020-04-01 09:03 | HMH.ACPN2 ---
Internal Medicine - PN: Subj *Date: 04/01/20 *Time: 09:03 Interval history: Patient remains intubated and sedated on ventilator. Chest x-ray, blood gas and labs reviewed. Discussed case with nursing staff and respiratory therapist. Exam Vital signs and Labs for Last 24 Hours: Temp Pulse Resp BP Pulse Ox 99.3 F 107 H 24 98/58 L 85 L 04/01/20 08:00 04/01/20 09:00 04/01/20 09:00 04/01/20 09:00 04/01/20 09:00 Laboratory Results - last 24 hr 03/31/20 12:00: Specimen Source Right radial, O2 % 100, ABG pH 7.28 L, ABG pCO2 44.7, ABG pO2 59.9 L, ABG HCO3 20.6 L, ABG Total CO2 22.0 L, ABG O2 Saturation 90, ABG Base Excess -6.1 L, Dagoberto Test Patient unable, Vent Rate 24, Tidal Volume 560, PEEP 12 04/01/20 04:20: WBC 7.4, RBC 4.32 L, Hgb 11.9 L, Hct 37.3 L, MCV 86.5, MCH 27.5, MCHC 31.8, RDW 15.0, Plt Count 186, MPV 8.7, Neut % (Auto) 89.4 H, Lymph % (Auto) 5.9 L, [place] % (Auto) 3.5, Eos % (Auto) 0.9, Baso % (Auto) 0.3, Neut # (Auto) 6.6, Lymph # (Auto) 0.4 L, [place] # (Auto) 0.3, Eos # (Auto) 0.1, Baso # (Auto) 0.0, Total Counted 100, Neutrophils % (Manual) 86 H, Band Neutrophils % 7.0, Lymphocytes % (Manual) 6 L, Monocytes % (Manual) 1 L, Platelet Estimate Normal, Hypochromasia 1+, Rouleaux 1+ 04/01/20 04:20: Sodium 142, Potassium 4.2, Chloride 112 H, Carbon Dioxide 27, Anion Gap 7.2, BUN 27 H, Creatinine 1.00 D, Estimated Creat Clear 139, Estimated GFR 76, Est GFR ( Amer) 92 D, Glucose 108 H, Calcium 8.5, Magnesium 2.5 H, Total Bilirubin 0.5, AST 74 H, ALT 45, Alkaline Phosphatase 91, Total Protein 5.5 L, Albumin 2.6 L, Globulin 2.9, Albumin/Globulin Ratio 0.9 L 04/01/20 06:00: Specimen Source Left radial, O2 % 100, ABG pH 7.32 L, ABG pCO2 45.4 H, ABG pO2 44.6 L, ABG HCO3 23.1, ABG Total CO2 24.5, ABG O2 Saturation 81 L*, ABG Base Excess -3.0 L, Dagoberto Test Patient unable, Vent Rate 24, Tidal Volume 560, PEEP 12 I & O for Last 24 hours: Intake & Output 03/29/20 03/30/20 03/31/20 04/01/20 11:59 11:59 11:59 11:59 Intake Total 1790 / 1790 4662 / 4829 4631 / 4871 3374 / 3374 Output Total 1051 / 1051 1170 / 1210 1390 / 1540 2090 / 2090 Balance 739 / 739 3492 / 3619 3241 / 3331 1284 / 1284 Weight 259 lb 4.8 oz 262 lb 5.601 oz 275 lb 2.19 oz 278 lb 14.156 oz Microbiology Reports for the Last 24 Hours: Microbiology 03/29/20 16:42 Sputum - Endotracheal Tube Aspirate Gram Stain - Final 03/29/20 16:42 Sputum - Endotracheal Tube Aspirate Sputum Culture - Preliminary 03/28/20 19:40 Sputum - Expectorated Sputum Gram Stain - Final 03/28/20 19:40 Sputum - Expectorated Sputum Sputum Culture - Preliminary Narrative: Intubated, sedated, tube feeds seem to be infusing well. Ventilator settings reviewed. Peak pressures are in the 40s. Yesterday had an episode of needing manual bagging with higher peak pressures. O2 saturations remain low, blood gas reviewed. Lungs have symmetric air entry. Minimal crackles. However difficult exam secondary to ventilator. Heart rate regular. Abdomen soft. Perfusion good in the extremities. Assessment and Plan (1) Acute respiratory distress syndrome (ARDS) due to severe acute respiratory syndrome coronavirus 2 (SARS-CoV-2) Problem details: PaO2/FiO2 ratio 50-60, severe ARDS per berlin criteria. ARDsNet vent settings. Status: Acute Category: Medical Code(s): U07.1 - COVID-19; J80 - Acute respiratory distress syndrome (2) Acute hypoxemic respiratory failure due to COVID-19 Status: Acute Category: Medical Code(s): U07.1 - COVID-19; J96.01 - Acute respiratory failure with hypoxia (3) ELIZABETH (acute kidney injury) Status: Acute Category: Medical Code(s): N17.9 - Acute kidney failure, unspecified (4) COVID-19 Status: Acute Category: Medical Code(s): U07.1 - COVID-19 (5) Leukopenia Status: Acute Category: Medical Code(s): D72.819 - Decreased white blood cell count, unspecified (6) Lobar pneumonia Status: Acute Category: Medic
--- NOTE | 2020-04-01 09:11 | PC.NURSE ---
Dr. Singh rounded. He ordered the following changes to the vent: change mode to VC, decrease rate to 22, and add tidal volume of 600. Called RT (Lisette) and updated her. He also ordered to obtain ABG around 12pm. Pt sats increased to 89-90% after changes were made. Pulse ox reads best/highest on right ear lobe.
--- NOTE | 2020-04-01 09:42 | PC.NURSE ---
made vent changes from Pressure Control to Volume Control, Tidal Volume to 600, and Respiratory rate from 22 to 24. ABG to be drawn in 3 hours (@ noon).
--- NOTE | 2020-04-01 12:00 | PC.NURSE ---
gastric residual @ 1200 is 0mL.
[2020-04-01 12:30] LABS: ABG Base Excess -3.2 mmol/L (-2.4-2.3); ABG HCO3 23.3 mmhg (22.0-26.0); ABG Oxygen Saturation 86 % (90-100); ABG PCO2 48.5 mmhg (35.0-45.0); ABG PO2 53.3 mmhg (80-100); ABG TCO2 24.8 mmhg (23-27)
[2020-04-01 12:33] LABS: Allen's Test Patient Unable; Oxygen 100 %; PEEP 12; Source Right Radial; Tidal Volume 600; Vent Rate 22
--- NOTE | 2020-04-01 16:00 | PC.NURSE ---
gastric residual @ 1600 is 0mL.
--- NOTE | 2020-04-01 17:13 | PC.NURSE ---
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 Has been normotensive. Not had to utilize Levophed this shift. Sats have remained above 90% with vent changes this morning. Current settings are: 100% fiO2, VC, rate 22, TV 600, PEEP 12. Thick yellow secretions noted when ET suctioned. Lung sounds have been clear. Using abd muscles and accessory muscles at times. Skin is warm. Has been afebrile. Has been turned Q2 ATC and oral care have been provided. Pulmocare running @ 60ml/hr via right nare NG tube. Sarah catheter noted with clear yellow UOP. Fentanyl gtt @ 150mcg/hr and Versed gtt @ 0.1mg/kg/hr. Dose based on today's wt of 126.5kg. Bowel sounds hypoactive. No BM this shift.
--- NOTE | 2020-04-01 17:22 | DIET.NUTRFU ---
Pt with good toleration TF regimen- GRV<30, no s/s abdominal discomfort. Goal rate reached, fluid needs being met. 1.7# weight gain from yesterday, 11# total gain t/o stay. Continuing to monitor.
--- NOTE | 2020-04-01 17:36 | PC.NURSE ---
Dr. Singh ordered AM labs (CBC, CMP, and ABG) and CXR for tomorrow morning. I entered orders on his behalf.
--- NOTE | 2020-04-01 17:50 | PC.NURSE ---
received call from . There are currently no beds available at .
--- NOTE | 2020-04-01 23:18 | PC.NURSE ---
patietn bathed, shaved hair washed and ett moved to right side without any incident, sats remained 90% to 92%
[2020-04-02] VITALS (37 sets, daily range): BP systolic 95–130; BP diastolic 56–86; PULSE 75–102; RESP 16–28; TEMP 36.4–37.8; O2SAT 84–100; BMI 38.0
--- NOTE | 2020-04-02 04:05 | PC.NURSE ---
left lower lobe becoming more diminished
[2020-04-02 05:21] LABS: Basophils % 0.2 % (0.1-2.0); Eosinophils % 0.3 % (0.1-12.0); Hematocrit 35.1 % (42.0-52.0); Hemoglobin 11.3 g/dL (14.1-18.0); Lymphocytes # 0.5 K/mm3 (0.7-4.5); Lymphocytes % 6.2 % (10-50); Mean Corpuscular HGB Conc 32.1 g/dL (31.8-35.4); Mean Corpuscular Hemoglobin 28.1 pg (27.0-31.2); Mean Corpuscular Volume 87.5 fl (80-94); Mean Platelet Volume 10.1 fl (7.4-10.4); Monocytes # 0.3 K/mm3 (0.1-1.0); Monocytes % 3.7 % (1.7-9.3); Neutrophils # 7.8 K/mm3 (1.8-7.8); Neutrophils % 89.5 % (37.0-80.0); Platelet Count 190 K/mm3 (142-424); Red Blood Count 4.01 M/mm3 (4.60-6.20); Red Cell Distribution Width 14.5 % (11.5-17.5); White Blood Count 8.8 K/mm3 (4.8-10.8)
[2020-04-02 05:22] LABS: Chloride 113 mmol/L (98-107); Potassium 4.7 mmoL/L (3.5-5.1); Sodium 142 mmol/L (136-145)
[2020-04-02 05:25] LABS: Alanine Aminotransferase 36 U/L (12-78); Albumin Level 2.6 g/dl (3.5-5.0); Albumin/Globulin Ratio 0.9 (1.1-1.8); Alkaline Phosphatase 86 U/L (38-126); Anion Gap 6.7 mEq/L (5-15); Aspartate Amino Transferase 73 U/L (17-59); Bilirubin,Total 0.4 mg/dl (0.2-1.3); Blood Urea Nitrogen 36 mg/dl (9-20); Carbon Dioxide 27 mmol/L (22.0-30.0); Creatinine Clearance Estimated 144 mL/min (50-200); Estimated Glomerular Filt Rate 76 ml/min (>60); GFR (African American) 92 ML/MIN (>60); Globulin 2.8 g/dL (1.3-3.2); Total Protein,Serum 5.4 g/dl (6.3-8.2)
[2020-04-02 05:26] LABS: Calcium 8.4 mg/dl (8.4-10.2); Glucose 123 mg/dl (74-100)
[2020-04-02 05:28] LABS: MANUAL DIFFERENTIAL MANUAL DIFFERENTIAL (MANUAL DIFF)
[2020-04-02 05:55] LABS: Lymphocytes % 11 % (10-50); Neutrophils % 89 % (42-76); Ovalocytes 1+; Platelet Estimate Normal; Tear Drop Cells 1+; Total Cells Counted 100
--- NOTE | 2020-04-02 06:00 | XR_ITS ---
PROCEDURE: XR CHEST PORTABLE CLINICAL HISTORY: Tube placement Respiratory failure, pneumonia COMPARISON: CT CT ANGIO CHEST from 03/27/2020 CR XR CHEST PORTABLE from 03/30/2020 CR XR CHEST PORTABLE from 03/31/2020 CR XR CHEST PORTABLE from 04/01/2020 FINDINGS: 0558 hours. Endotracheal tube tip is in good position 6 cm above the tina. NG tube tip may be at the GE junction. The tip is very difficult to identify.. There remains diffuse bilateral alveolar opacification consistent with diffuse bilateral pneumonia. No evidence of pneumothorax. No acute bony abnormalities. IMPRESSION: 1. No change in the diffuse bilateral pneumonia. 2. Endotracheal tube in good position. 3. NG tube tip may be at the GE junction. Will ask for additional image to confirm. Dictated by: Dagoberto Contreras MD 04/02/2020 06:25 Dagoberto Contreras MD in [facility] 04/02/2020 06:25
[2020-04-02 06:48] LABS: ABG Base Excess -4.5 mmol/L (-2.4-2.3); ABG HCO3 21.7 mmhg (22.0-26.0); ABG Oxygen Saturation 86 % (90-100); ABG PCO2 43.6 mmhg (35.0-45.0); ABG PH 7.31 mmol/L (7.35-7.45); ABG PO2 51.3 mmhg (80-100)
[2020-04-02 06:49] LABS: Allen's Test Patient Unable; Oxygen 100 %; PEEP 12; Source Right Radial; Tidal Volume 600; Vent Rate 22
--- NOTE | 2020-04-02 08:29 | HMH.ACPN2 ---
Internal Medicine - PN: Subj *Date: 04/02/20 *Time: 10:33 Interval history: Patient remains intubated and sedated on ventilator. Overnight had some dyssynchrony with the ventilator. Labs this morning show stable but severe ARDS. Tolerating tube feeds. No bowel movement in over 2 days. Urine output remains more than 30 cc an hour. Chest x-ray, blood gas and labs reviewed. Discussed case with nursing staff and respiratory therapist. Exam Vital signs and Labs for Last 24 Hours: Temp Pulse Resp BP Pulse Ox 97.5 F L 92 H 26 H 109/62 L 89 L 04/02/20 08:00 04/02/20 08:00 04/02/20 08:00 04/02/20 08:00 04/02/20 08:00 Laboratory Results - last 24 hr 04/01/20 12:25: Specimen Source Right radial, O2 % 100, ABG pH 7.30 L, ABG pCO2 48.5 H, ABG pO2 53.3 L, ABG HCO3 23.3, ABG Total CO2 24.8, ABG O2 Saturation 86 L*, ABG Base Excess -3.2 L, Dagoberto Test Patient unable, Vent Rate 22, Tidal Volume 600, PEEP 12 04/02/20 03:55: WBC 8.8, RBC 4.01 L, Hgb 11.3 L, Hct 35.1 L, MCV 87.5, MCH 28.1, MCHC 32.1, RDW 14.5, Plt Count 190, MPV 10.1, Neut % (Auto) 89.5 H, Lymph % (Auto) 6.2 L, [place] % (Auto) 3.7, Eos % (Auto) 0.3, Baso % (Auto) 0.2, Neut # (Auto) 7.8, Lymph # (Auto) 0.5 L, [place] # (Auto) 0.3, Eos # (Auto) 0.0, Baso # (Auto) 0.0, Total Counted 100, Neutrophils % (Manual) 89 H, Lymphocytes % (Manual) 11, Platelet Estimate Normal, Tear Drop Cells 1+, Ovalocytes 1+ 04/02/20 03:55: Sodium 142, Potassium 4.7, Chloride 113 H, Carbon Dioxide 27, Anion Gap 6.7, BUN 36 H D, Creatinine 1.00, Estimated Creat Clear 144, Estimated GFR 76, Est GFR ( Amer) 92, Glucose 123 H, Calcium 8.4, Total Bilirubin 0.4, AST 73 H, ALT 36, Alkaline Phosphatase 86, Total Protein 5.4 L, Albumin 2.6 L, Globulin 2.8, Albumin/Globulin Ratio 0.9 L 04/02/20 06:00: Specimen Source Right radial, O2 % 100, ABG pH 7.31 L, ABG pCO2 43.6, ABG pO2 51.3 L, ABG HCO3 21.7 L, ABG Total CO2 23.0, ABG O2 Saturation 86 L*, ABG Base Excess -4.5 L, Dagoberto Test Patient unable, Vent Rate 22, Tidal Volume 600, PEEP 12 I & O for Last 24 hours: Intake & Output 03/30/20 03/31/20 04/01/20 04/02/20 23:59 23:59 23:59 23:59 Intake Total 4203 / 4203 4733 / 4793 4519 / 4579 1806 / 1806 Output Total 1035 / 1035 2360 / 2485 1721 / 1796 685 / 685 Balance 3168 / 3168 2373 / 2308 2798 / 2783 1121 / 1121 Weight 119 kg 124.8 kg 126.5 kg 130 kg Microbiology Reports for the Last 24 Hours: Microbiology 03/29/20 16:42 Sputum - Endotracheal Tube Aspirate Gram Stain - Final 03/29/20 16:42 Sputum - Endotracheal Tube Aspirate Sputum Culture - Preliminary 03/28/20 19:40 Sputum - Expectorated Sputum Gram Stain - Final 03/28/20 19:40 Sputum - Expectorated Sputum Sputum Culture - Final Yeast Narrative: - Constitutional On mechanical ventilation, sedated, intubated, and easily breathing - *Routine HEENT Exam Head: Present: normocephalic Eye: Present: EOMI, PERRL ENT: Present: mucous membranes moist, oropharynx clear Comments: ETT 26cm at gums - *Routine Neck Exam Present: supple. Absent: lymphadenopathy - *Routine Respiratory Exam Present: patient mechanically ventilated, crackles - *Routine Cardiovascular Exam Present: RRR - *Routine Abdominal Exam Present: soft, normoactive bowel sounds. Absent: tenderness - *Routine Extremities Exam Absent: cyanosis, clubbing, edema - *Routine Skin Exam Present: warm. Absent: rash - *Routine Neurological Exam sedated, responds to painful stimuli Assessment and Plan (1) Acute respiratory distress syndrome (ARDS) due to severe acute respiratory syndrome coronavirus 2 (SARS-CoV-2) Problem details: PaO2/FiO2 ratio 50-60, severe ARDS per berlin criteria. ARDsNet vent settings. Status: Acute Category: Medical Code(s): U07.1 - COVID-19; J80 - Acute respiratory distress syndrome (2) Acute hypoxemic respiratory failure due to COVID-19 Status: Acute Category: Medical Code(s): U07.1 - COVID
[2020-04-02 08:55] LABS: C-Reactive Protein 182.9 mg/L (0-4)
[2020-04-02 09:08] LABS: Procalcitonin 0.396 ng/mL (0.0-2.0)
--- NOTE | 2020-04-02 09:24 | PC.NURSE ---
dr jackson was at bedside 0900. switched settings of vent to spontaneous, with a peep of 14 fio2 of 100 and pressure support of 8. patient currently breathing 18-20 with sats 90-92%. md asked to hold fluids at this time. start docusate and senna per ng tube bid. last bm the . md spoke with respiratory as well, about settings if patient doesn't tolerate the spontaneous setting.
--- NOTE | 2020-04-02 09:30 | PC.NURSE ---
switched pt to Pressure Support at this time, spoke with him about my concerns of how the pt had been breathing this morning. This change seemed to help pt at this time. Will continue to monitor.
[2020-04-02 09:34] LABS: Erythrocyte Sedimentation Rate 92 mm/hr (0-20)
--- NOTE | 2020-04-02 12:23 | PC.NURSE ---
1200 programmed patient tube feedings to have 175ml/flush every 4 hours
[2020-04-02 13:03] LABS: ABG Base Excess -5.5 mmol/L (-2.4-2.3); ABG Oxygen Saturation 82 % (90-100); ABG PCO2 43.9 mmhg (35.0-45.0); ABG TCO2 22.3 mmhg (23-27)
[2020-04-02 13:05] LABS: Allen's Test Patient Unable; Oxygen 100 %; PEEP 14; Pressure Support 8; Source Right Radial
[2020-04-02 13:08] LABS: ABG PO2 49.2 mmhg (80-100)
--- NOTE | 2020-04-02 13:15 | PC.NURSE ---
reported critical abg to md who stated to increase peep to 18. as long as patient remains breathing between 16-20 no need to switch from spontaneous yet.
--- NOTE | 2020-04-02 13:36 | PC.NURSE ---
Received phone call that wanted to increase PEEP to 18, going to increase slowly so turned up to 16 at this time.
--- NOTE | 2020-04-02 14:23 | PC.NURSE ---
patient has been turned q2h. md is aware of the blisters noted to patient coccyx, continue with turns and place butterfly dressing over the area. at this time patient was attempted to place on l side, noted from vitals patient does not appear to tolerate the l side as well as right, especially with a severe turn to the l. sats dropped, patient bp dropped and respiratory rate increased. once placed off side vitals mostly returned to normal. current sat at this time is 87%. patient is now laying supine (first time this shift in supine)
--- NOTE | 2020-04-02 14:37 | PC.WOUNDNOTE ---
Wound Location: coccyx Length: Width: Depth: Undermining Y/N: Tunneling cm: Granulation %: Slough/necrotic tissue %: Inflammation/swelling Y/N: Pain and/or tenderness Y/N: Exudate: Serosanguinous Sanguinous Serosanguinous Seropurulent Purulent Color: Purple [place] Cloudy/milky [place] Yellow Brown [place] Blue Consistency: Thick Thin Amount: None Scant Small Moderate Large Odor Y/N: Blisters to bilateral buttock/coccyx area
--- NOTE | 2020-04-02 16:10 | PC.NURSE ---
Increased PEEP to 18 per
--- NOTE | 2020-04-02 17:47 | PC.NURSE ---
md rounded on patient. some change in qrs noted and md is aware. patient is beginning to belly breath again, end tidal co2 is a little less, resp rate remains about 16-22. sats upper 80s. instructed us to turn peep back down to 14 and then at 2100 if patient remains okay and in no distress until then to turn patient back to volume/assist control. tidal volume of 640 and rate at 20 when this occurs. keep pressure support at 8 and peep at 14. current settings- spontaneous fio2 100%, ps 8 peep 14. respiratory was at bedside when md gave instructions above. stated if patient begins to have distress to order a stat chest xray. patient has tolerated feedings well this shift. no residual noted. bp has been low at times but has been mostly within normal limits. no change in sedation this shift. patient tolerating well. bites down on swabs with oral care. pupils are about 1-2mm. reaction noted. will continue to monitor.
--- NOTE | 2020-04-02 18:21 | PC.NURSE ---
called stating no beds available. update given to rachel at , along with nightly plan of care. they stated to call with any changes.
--- NOTE | 2020-04-02 18:30 | PC.NURSE ---
[facility] called stating there were still no beds, and it would be unlikely to have a bed tonight but they were working on it.
--- NOTE | 2020-04-02 18:38 | PC.NURSE ---
18 gauage in l ac removed. 20 placed into l ac at this time.
--- NOTE | 2020-04-02 20:56 | PC.NURSE ---
He is intubated and sedated on spontaneous, PS 8, PEEP 14, FiO2 100%. Gag reflex present. GCS 6. Lung sounds with faint crackles. 2+ generalized edema. Scattered bruising on abdomen. DSG on coccyx is C/D/I. He remains in contact and airborne precautions. Voids per f/c. Urine is yellow, clear. Abdomen is distended. No BM this shift. NG in right are with pulmocare @ 60mL/hr. Residual 0 @ 2000. Placement verified via auscultation. HOB elevated 30 degrees. Ambu bag at bedside. Heels elevated while lying supine. Turned and repositioned q 2 hours. Oral care q 2 hours and PRN. Small amount of oral secretions and ETT secretions present. Oneyda at called at 2041 and stated that they would likely have a bed tonight and that she would call back with a bed assignment. [facility] [place] [facility] [place].
--- NOTE | 2020-04-02 21:06 | PC.NURSE ---
Dr. Cole notified that pt is not tolerating new vent settings at 2100. High and low pressure alarms continously monitoring Sats dropped to 83%. Ok to leave to previous vent settings.
--- NOTE | 2020-04-02 21:29 | PC.NURSE ---
Dr. Cole notified that pt is not tolerating new vent settings at 2100. High and low pressure alarms continously monitoring Sats dropped to 83%. Awaiting call back.
--- NOTE | 2020-04-02 21:38 | PC.NURSE ---
Spoke with Dr. Muniz about pt not tolerating vent settings. He stated to change to SIMV mode, rate 18, PEEP 14, TV 640 for 10-20 mins and if he does not tolerate settings to change back to sponatenous with previous settings.
--- NOTE | 2020-04-02 22:36 | PC.NURSE ---
Amor with [facility] called at 2131 and stated no beds available.
--- NOTE | 2020-04-02 22:41 | PC.NURSE ---
wedding ring removed and given to at this time
--- NOTE | 2020-04-02 22:47 | PC.NURSE ---
[facility] called @ 2243 with bed assignment. VS 107/57, R 22, HR 100, 85% O2. Face sheet faxed to . Bed assignment is [facility], 10th floor Room 225.
--- NOTE | 2020-04-02 22:51 | PC.NURSE ---
[place] notified about bed assignment and anticipation of transfer.
--- NOTE | 2020-04-02 23:58 | PC.NURSE ---
report was called to bro rothman at [facility].
[2020-04-03] VITALS: PULSE 110
--- NOTE | 2020-04-03 00:32 | PC.NURSE ---
[facility] is in room administering meds per their protocol and placing patient on their vent. will notify [facility] once they leave
--- NOTE | 2020-04-03 00:48 | PC.NURSE ---
patient left with [facility]. [facility] notified
== END 2020-04-03 00:48 | disposition short-term general hospital (02) | DRG 207 ==
LOC: ER 07:36 → 2ND 11:13 → ICU 13:33 → 2ND 03-21 11:31
PROVIDERS: Family Medicine; Internal Medicine Adolescent Medicine; Admitting Provider Internal Medicine Adolescent Medicine; Emergency Provider Emergency Medicine; PCP Internal Medicine Adolescent Medicine; Visit Provider Internal Medicine Adolescent Medicine
DX: U07.1 COVID-19 (principal); J12.89 Other viral pneumonia; J96.01 Acute respiratory failure with hypoxia; J18.9 Pneumonia, unspecified organism; I50.21 Acute systolic (congestive) heart failure; N17.9 Acute kidney failure, unspecified; I25.10 Atherosclerotic heart disease of native coronary artery without angina pectoris; E78.5 Hyperlipidemia, unspecified; I11.0 Hypertensive heart disease with heart failure; Z95.5 Presence of coronary angioplasty implant and graft; Z72.0 Tobacco use; Z79.01 Long term (current) use of anticoagulants; Z79.82 Long term (current) use of aspirin; Z79.51 Long term (current) use of inhaled steroids; Z79.899 Other long term (current) drug therapy
CPT/HCPCS: 31500; 94002; 71045; 71275; 80048; 80053; 80202; 81001; 82550; 82552; 82553; 82803; 83735; 83880; 84145; 84484; 85007; 85025; 85378; 85651; 86140; 86328; 87040; 87070; 87077; 87081; 87186; 87205; 93306; 94003; 94640; 94660; 94760; 94761; 99284; J0456; J1956; J2405; J2704; J3370; Q9967; U0003